=== PATIENT | male | born 1945 | race Caucasian/White ===

== ENCOUNTER 2017-05-12 00:10 | Observation (INO) | payer OTHER ==
[2017-05-12] VITALS (12 sets, daily range): BP systolic 108–185; BP diastolic 51–75; PULSE 55–64; RESP 14–18; TEMP 96.9–98.5; O2SAT 93–100
[~2017-05-12] VITALS: Ht 180.3 cm; Wt 88.9 kg
[~2017-05-12 00:10] MED LIST: AMLO10 PO; CARV12.5 PO; CITA20TA4 PO; COZA100T PO; HUMALOG SQ; HYDR-3580 PO; LANTUS2P SC; LOVA20TA PO; SPIR25 PO; ZOLP5TAB3 PO
--- NOTE | 2017-05-12 00:36 | PD ---
HPI Chief Complaint: General Weakness Time Seen by Provider: 00:21 Travel History International Travel<30 days: No Contact w/Intl Traveler<30days: No Traveled to known affect area: No History of Present Illness HPI This is a 72-year-old male who has a history of end-stage renal disease on dialysis as well as a past history of Guillain-Oakes, chronic foot drop and diabetic neuropathy who presents to the emergency department with weakness in his legs. He reports that from the knees down he feels like he can't move his legs, he feels numb and tingly and he can't stand independently. They had to help him get into a wheelchair from dialysis and he was unable to stand with his family's assistance at home. He denies any pain. He does have chronic back problems. He says his had Guillane [place] multiple times, most recently in 2008. PFSH Past Medical History Arthritis: Yes Asthma: No Autoimmune Disease: Yes Blood Disorders: No Anxiety: No Depression: Yes Heart Rhythm Problems: No Cancer: No Cardiovascular Problems: Yes (ND 2013) High Cholesterol: Yes Chest Pain: No Congestive Heart Failure: No COPD: No Cerebrovascular Accident: No Diabetes: Yes Diminished Hearing: No Endocrine: Yes Gastrointestinal Disorders: Yes (HX GASTRIC ULCER) GERD: Yes Headaches: Yes (OCCASSIONAL) Hepatitis: No Hiatal Hernia: Yes Hypertension: Yes Immune Disorder: No Implanted Vascular Access Dvce: Yes Kidney Stones: No Musculoskeletal: Yes (DDD LOWER BACK, ARTHRITIS HANDS, NECK AND BACK) Neurologic: Yes (AMY COHEN 1990) Psychiatric: No Reproductive: No Respiratory: Yes (SLEEP APNEA) Migraines: No Renal Failure: No Seizures: Yes (LAST 1984) Sleep Apnea: Yes Thyroid Disease: No Ulcer: Yes (HX OF) PNEUMOCCOCAL Vaccine (Year): 2009 Past Surgical History Abdominal Surgery: Yes (CHOLY,APPY) AICD: No Appendectomy: Yes Body Medical Devices: LENS IN BILAT EYES Cardiac Surgery: No Cholecystectomy: Yes Ear Surgery: No Endocrine Surgery: No Eye Surgery: Yes (BILAT CATARACTS; DETATCHED RETINA ON L/ALSO 2 SURGERIE TO L EFT EYE) Genitourinary Surgery: No Gynecologic Surgery: No Joint Replacement: No Oral Surgery: No Pacemaker: No Thoracic Surgery: No Other Surgery: Yes (BILAT LEG, VERICOSE VEIN SX) Social History Alcohol Use: No Tobacco Use: No Substance Use: No Allergies-Medications (Allergen,Severity, Reaction): Coded Allergies: Augmentin (Verified Allergy, Severe, RASH, 05/12/17) Codeine (Verified Allergy, Severe, SWELLING, 05/12/17) Penicillin (Verified Allergy, Severe, RASH, 05/12/17) Prednisone (Verified Allergy, Severe, RASH, 05/12/17) Iodine (Verified Allergy, Unknown, SWELLING, 05/12/17) SON IS NOT AWARE OF THIS AND HE IS SEED CORN PRODUCTION MANAGER Lactose (Verified Allergy, Unknown, 05/12/17) Cymbalta (Verified Adverse Reaction, Severe, STOMACH IRRITATION, 05/12/17) Reported Meds & Prescriptions Reported Meds & Active Scripts Active Reported Lovastatin 20 Mg Tab 20 Mg PO DAILY Lisinopril 10 Mg Tab 10 Mg PO BID Bumetanide 2 Mg Tab 2 Mg PO SAT, SUN, TUES, THUR Review of Systems Except as stated in HPI: all other systems reviewed are Neg Physical Exam Narrative GENERAL:Well appearing, no acute distress SKIN: Focused skin assessment warm and dry. HEAD: Atraumatic. Normocephalic. EYES: Pupils equal and round. No injection or drainage. ENT: Moist mucous membranes NECK: Trachea midline. CARDIOVASCULAR: Regular rate and rhythm. No murmur appreciated. 2+ bilateral DP pulses with normal capillary refill. RESPIRATORY: Clear to auscultation. Breath sounds equal bilaterally. GASTROINTESTINAL: Abdomen soft, non-tender, nondistended. MUSCULOSKELETAL: No obvious deformities. NEUROLOGICAL: Awake and alert. No obvious cranial nerve deficits. 4- out of 5 strength with knee flexion and extension, 2 out of 5 strength with dorsiflexion and plantar flexion, 4+ out of 5 strength with hip flexion and extension bilaterally. Absent patellar and Achilles reflexes bilaterally. PSYCHIATRIC: Appropriate mood and affect; insight and judgment normal. Data Data Last Documented VS Vital Signs Date Time Temp Pulse Resp B/P Pulse Ox O2 Delivery O2 Flow Rate FiO2 05/12/17 01:42 60 14 115/53 99 Room Air 05/12/17 00:35 98.5 Orders Complete Blood Count With Diff (05/12/17 00:21) Comprehensive Metabolic Panel (05/12/17 00:21) ^ Insert Iv (05/12/17 00:21) Prothrombin Time / Inr (Pt) (05/12/17 00:36) Act Partial Throm Time (Ptt) (05/12/17 00:36) Ct Brain W/O Iv Contrast(Rout) (05/12/17 ) Magnesium (Mg) (05/12/17 00:21) Labs Laboratory Tests Test 05/12/17 05/12/17 00:40 01:12 White Blood Count 8.9 TH/MM3 Red Blood Count 3.70 MIL/MM3 Hemoglobin 10.6 GM/DL Hematocrit 31.9 % Mean Corpuscular Volume 86.3 FL Mean Corpuscular Hemoglobin 28.5 PG Mean Corpuscular Hemoglobin 33.0 % Concent Red Cell Distribution Width 14.5 % Platelet Count 148 TH/MM3 Mean Platelet Volume 9.2 FL Neutrophils (%) (Auto) 72.6 % Lymphocytes (%) (Auto) 17.9 % Monocytes (%) (Auto) 7.4 % Eosinophils (%) (Auto) 1.8 % Basophils (%) (Auto) 0.3 % Neutrophils # (Auto) 6.4 TH/MM3 Lymphocytes # (Auto) 1.6 TH/MM3 Monocytes # (Auto) 0.7 TH/MM3 Eosinophils # (Auto) 0.2 TH/MM3 Basophils # (Auto) 0.0 TH/MM3 CBC Comment DIFF FINAL Differential Comment Sodium Level 137 MEQ/L Potassium Level 4.0 MEQ/L Chloride Level 97 MEQ/L Carbon Dioxide Level 34.0 MEQ/L Anion Gap 6 MEQ/L Blood Urea Nitrogen 41 MG/DL Creatinine 4.60 MG/DL Estimat Glomerular Filtration 13 ML/MIN Rate Random Glucose 165 MG/DL Calcium Level 8.5 MG/DL Magnesium Level 2.0 MG/DL Total Bilirubin 0.6 MG/DL Aspartate Amino Transf 18 U/L (AST/SGOT) Alanine Aminotransferase 24 U/L (ALT/SGPT) Alkaline Phosphatase 118 U/L Total Protein 7.6 GM/DL Albumin 3.7 GM/DL Prothrombin Time 10.5 SEC Prothromb Time International 1.0 RATIO Ratio Activated Partial 28.5 SEC Thromboplast Time MDM Medical Decision Making Medical Screen Exam Complete: Yes Emergency Medical Condition: Yes Interpretation(s) Afebrile, no tachycardia, mild hypertension No leukocytosis Anemia Potassium is normal Magnesium is normal CT head reassuring Differential Diagnosis Neuropathy, herniated disc, disability, Guillain-Oakes Narrative Course This is a 72-year-old male who presents to the emergency department with bilateral weakness below the knees that has worsened today. He has some degree of chronic weakness which has been documented on prior neurology exams and he has had areflexia documented as well in the past. On exam he is weak distal to the knee on both sides and he does have some decreased sensation to light touch. He has a normal vascular exam. The patient has a history of recurring Guillain-Oakes.I think patient requires admission for neurology consultation and physical therapy evaluation. He has no bowel or bladder symptoms or saddle anesthesia so I doubt cauda equina syndrome. Diagnosis Primary Impression: Weakness Admitting Information Admitting Physician Requests: Observation Mayuri Jimenez MD May 12, 2017 00:36
[2017-05-12] MEDS ORDERED: LISI10TA3 PO (00:54)
[2017-05-12] MEDS ORDERED: LOVA20TA PO (00:54)
[2017-05-12] MEDS ORDERED: BUME2TAB PO (00:54)
[2017-05-12 01:16] LABS: AUTOMATED NEUTROPHIL # 6.4 TH/MM3 (1.8-7.7); BASOPHIL % 0.3 % (0.0-2.0); EOSINOPHIL # 0.2 TH/MM3 (0-0.4); EOSINOPHIL % 1.8 % (0.0-4.0); HEMATOCRIT 31.9 % (39.0-51.0); HEMO FLAGS DIFF FINAL; LYMPH % 17.9 % (9.0-44.0); LYMPHOCYTE # 1.6 TH/MM3 (1.0-4.8); MEAN CELL VOLUME 86.3 FL (80.0-100.0); MEAN CORPUSCULAR HEMOGLOBIN 28.5 PG (27.0-34.0); MONO % 7.4 % (0.0-8.0); NEUT % 72.6 % (16.0-70.0); PLATELET COUNT 148 TH/MM3 (150-450); RED CELL DISTRIBUTION WIDTH 14.5 % (11.6-17.2); WHITE BLOOD COUNT 8.9 TH/MM3 (4.0-11.0)
[2017-05-12 01:29] LABS: CHLORIDE 97 MEQ/L (98-107); SODIUM (NA) 137 MEQ/L (136-145)
[2017-05-12 01:32] LABS: ANION GAP 6 MEQ/L (5-15); BLOOD UREA NITROGEN 41 MG/DL (7-18)
[2017-05-12 01:35] LABS: ALT (GPT) 24 U/L (12-78)
[2017-05-12 01:36] LABS: AST (GOT) 18 U/L (15-37); GLOMERULAR FILTRATION RATE 13 ML/MIN (>89)
[2017-05-12 01:37] LABS: TOTAL BILIRUBIN ADULT 0.6 MG/DL (0.2-1.0)
[2017-05-12 01:38] LABS: ALKALINE PHOSPHATASE 118 U/L (45-117)
[2017-05-12 01:41] LABS: APTT (PATIENT) 28.5 SEC (24.3-30.1); PROTHROMBIN TIME - PATIENT 10.5 SEC (9.8-11.6)
--- NOTE | 2017-05-12 01:57 | RADRPT ---
EXAM DATE/TIME: 05/12/2017 01:34 [facility] COMPARISON: CT BRAIN W/O CONTRAST, February 21, 2015, 13:40. INDICATIONS : Weakness. RADIATION DOSE: 58.71 CTDIvol (mGy) MEDICAL HISTORY : Diabetes mellitus type 2. Hypertension. Seizures.Guillain-[place] SURGICAL HISTORY : None. ENCOUNTER: Initial ACUITY: 2 days PAIN SCALE: 3/10 LOCATION: Bilateral cranial TECHNIQUE: Multiple contiguous axial images were obtained of the head. Using automated exposure control and adj ustment of the mA and/or kV according to patient size, radiation dose was kept as low as reasonably a chievable to obtain optimal diagnostic quality images. DICOM format image data is available electro nically for review and comparison. FINDINGS: CEREBRUM: The ventricles are normal for age. There stable bilateral cortical atrophy and chronic white matter changes. No evidence of midline shift, mass lesion, hemorrhage or acute infarction. No extra-axial f luid collections are seen. POSTERIOR FOSSA: The cerebellum and brainstem are intact. The 4th ventricle is midline. The cerebellopontine angle i s unremarkable. EXTRACRANIAL: The visualized portion of the orbits is intact. SKULL: The calvaria is intact. No evidence of skull fracture. No change compared to the prior study. CONCLUSION: Stable CT scan of the brain compared to 2014. Santy Mc MD on May 12, 2017 at 1:54 Board Certified Radiologist. This report was verified electronically.
[2017-05-12] MEDS ORDERED: NALOXONE HCL 0.4 MG/ML AMP IV PRN (02:30)
[2017-05-12] MEDS ORDERED: SODIUM CHLORIDE 0.9% FLUSH 10 ML FLUSH IV FLUSH PRN (02:30)
--- NOTE | 2017-05-12 08:24 | RADRPT ---
EXAM DATE/TIME: 05/12/2017 07:45 [facility] COMPARISON: No previous studies available for comparison. INDICATIONS : Left leg weakness. MEDICAL HISTORY : Hypertension. Myocardial infarction. Seziure. ESRD. Dialysis. Giullain-[place]. Diabetic. SURGICAL HISTORY : Appendectomy. Cholecystectomy. ENCOUNTER: Initial ACUITY: 3 days PAIN SCORE: 3/10 LOCATION: Left leg. TECHNIQUE: Venous ultrasound of the leg was performed from the inguinal ligament to the proximal calf. Real-stephen e, color Doppler and spectral tracing, compression and augmentation techniques were used. FINDINGS: There is normal compressibility of the deep venous system from the inguinal region to the proximal ca lf. No echogenic clot is seen in the lumen of the common femoral, femoral, popliteal, and posterior tibial veins. There is a normal response of the venous system to proximal and distal augmentation an d respiration. CONCLUSION: No deep venous thrombosis left leg. Lower extremity edema. Redd Honeycutt MD on May 12, 2017 at 8:20 Board Certified Radiologist. This report was verified electronically.
[2017-05-12] MEDS: BUMETANIDE 1 MG TAB PO SCH (09:09)
[2017-05-12] MEDS: SODIUM CHLORIDE 0.9% FLUSH 10 ML FLUSH IV FLUSH SCH ×2 (09:09→21:00)
[2017-05-12] MEDS: LISINOPRIL 10 MG TAB PO SCH ×2 (09:09→20:39)
--- NOTE | 2017-05-12 11:27 | PD.CONS ---
History of Present Illness Service Neurology Consult Requested By er Reason for Consult weakness Primary Care Physician Non-Staff History of Present Illness 72-year-old gentleman with a history of hypertension and chronic weakness as well as a diabetic neuropathy who came to the hospital complaining of acute onset of leg weakness. He was at dialysis and his legs gave out after completion so that he could not move by himself. he has chronic foot drop and uses afo's bilaterally. uses a wheelchair/walker at baseline. denies any arm or facial symptoms. back pain a little worse yesterday. Review of Systems as above and admit hp Past Family Social History Past Medical History Depression Hyperlipidemia Congestive heart failure Pulmonary artery hypertension Guillain-Oakes syndrome Arthritis Seizure disorder Sleep apnea Past Surgical History Cataracts Cholecystectomy Appendectomy Eye surgeries Reported Medications Reviewed in the medical record, nothing new Allergies: Coded Allergies: Augmentin (Verified Allergy, Severe, RASH, 05/12/17) Codeine (Verified Allergy, Severe, SWELLING, 05/12/17) Penicillin (Verified Allergy, Severe, RASH, 05/12/17) Prednisone (Verified Allergy, Severe, RASH, 05/12/17) Iodine (Verified Allergy, Unknown, SWELLING, 05/12/17) SON IS NOT AWARE OF THIS AND HE IS COMPLIANCE REPRESENTATIVE DEALER Lactose (Verified Allergy, Unknown, 05/12/17) Cymbalta (Verified Adverse Reaction, Severe, STOMACH IRRITATION, 05/12/17) Active Ordered Medications Reviewed and the medical record Family History Family history of hypertension Social History denies alcohol or tobacco dependency, lives with his family Review of Systems All other ROS: ROS reviewed as documented in chart Past Family Social History Allergies: Coded Allergies: Augmentin (Verified Allergy, Severe, RASH, 05/12/17) Codeine (Verified Allergy, Severe, SWELLING, 05/12/17) Penicillin (Verified Allergy, Severe, RASH, 05/12/17) Prednisone (Verified Allergy, Severe, RASH, 05/12/17) Iodine (Verified Allergy, Unknown, SWELLING, 05/12/17) SON IS NOT AWARE OF THIS AND HE IS COMPLIANCE REPRESENTATIVE DEALER Lactose (Verified Allergy, Unknown, 05/12/17) Cymbalta (Verified Adverse Reaction, Severe, STOMACH IRRITATION, 05/12/17) Active Ordered Medications Current Medications Medications (Trade) Dose Ordered Sig/Sam Route Start Time Stop Time Status Last Admin (NS Flush) 2 ml UNSCH PRN IV FLUSH 05/12/17 02:30 (NS Flush) 2 ml BID IV FLUSH 05/12/17 09:00 05/12/17 09:09 (Narcan Inj) 0.4 mg UNSCH PRN IV 05/12/17 02:30 (Prinivil) 10 mg BID PO 05/12/17 09:00 05/12/17 09:09 (Bumetanide) 2 mg DAILY PO 05/12/17 09:00 05/12/17 09:09 Exam I&O / VS 05/11/17 05/11/17 05/12/17 15:00 23:00 07:00 Intake Total 0 ml Balance 0 ml Intake Oral 0 ml # Voids 0 # Bowel Movements 0 Vital Signs Date Time Temp Pulse Resp B/P Pulse Ox O2 Delivery O2 Flow Rate FiO2 05/12/17 10:58 100 21 05/12/17 08:00 97.3 63 18 162/69 97 05/12/17 03:44 97.6 60 18 179/71 100 05/12/17 02:47 57 14 108/51 93 Room Air 05/12/17 01:42 60 14 115/53 99 Room Air 05/12/17 00:35 98.5 63 14 159/58 100 Room Air 05/12/17 00:35 63 14 100 Room Air 05/12/17 00:25 98.5 63 14 159/58 100 Neurologic: Alert, Oriented Psychiatric: Cooperative, Appropriate mood & affect, Normal judgement Exam Comments left vision loss. od- can see shadows, ou 1mm sluggish, os 5 mm dilated and non -reactive with left ptosis and peripheral facial weakness. dense stocking-glove neuropathy top all modalities with depressed reflexes. mute planters, no clonus. distal le weakness bilateral foot drop. able to bend both knees and move legs dallin to side in bed,. reduced rom in left shoulder. Review/Management Diagnosis/Plan: (1) DM polyneuropathy Plan: acute on chronic weakness gbs unlikely to occur that acutely; also has significant severe peripheral neuropathy that clouds accuracy of a gbs dx mri's reviewed. mri tspine with abnormal lower cord signal. syrinx vs infarct. it is possible that he could have thoracic cord ischemic causing his acute symptoms; possibly hypotension during HD could be contributory recs aspirin 325mg x 1 month then 81mg qd avoid hypotension check lipid panel; start statin if no contraindications, and ldl >70 check hba1c,b12 htn/dm/lipid control p.t. probable inpt rehab (2) Physical deconditioning (3) HTN (hypertension) (4) Acute on chronic renal failure Problem Qualifiers (1) DM polyneuropathy: Qualified Code: E13.42 - Diabetic polyneuropathy associated with other specified diabetes mellitus (2) HTN (hypertension): Qualified Code: I10 - Essential hypertension (3) Acute on chronic renal failure: Devon Segovia MD May 12, 2017 11:26
--- NOTE | 2017-05-12 12:58 | HHI.HP ---
[facility] Primary Care Physician Non-Staff Admission Diagnosis weakness Diagnoses: Chief Complaint: Worsening weakness Travel History International Travel<30 Days: No Contact w/Intl Traveler <30 Da: No Traveled to Known Affected Are: No History of Present Illness Patient is a 72-year-old gentleman with a history of hypertension and chronic weakness as well as a diabetic neuropathy who came to the hospital complaining of increased weakness in his legs for the last week. He was at dialysis and his legs gave out so that he could not move by himself. He was brought to the hospital for further evaluation observation. Patient denies any pain is weakness of severe worsening tries to move. Patient has had this progressive issue for some time and his family has requested a physical rehabilitation. Review of Systems Constitutional: DENIES: Diaphoretic episodes, Fatigue, Fever, Weight gain, Weight loss, Chills, Dizziness, Change in appetite, Night Sweats Endocrine: DENIES: Heat/cold intolerance, Polydipsia, Polyuria, Polyphagia Eyes: DENIES: Blurred vision, Diplopia, Eye inflammation, Eye pain, Vision loss , Photosensitivity, Double Vision Ears, nose, mouth, throat: DENIES: Tinnitus, Hearing loss, Vertigo, Nasal discharge, Oral lesions, Throat pain, Hoarseness, Ear Pain, Running Nose, Epistaxis, Sinus Pain, Toothache, Odynophagia Respiratory: DENIES: Apneas, Cough, Snoring, Wheezing, Hemoptysis, Sputum production, Shortness of breath Cardiovascular: DENIES: Chest pain, Palpitations, Syncope, Dyspnea on Exertion , PND, Lower Extremity Edema, Orthopnea, Claudication Gastrointestinal: DENIES: Abdominal pain, Black stools, Bloody stools, Constipation, Diarrhea, Nausea, Vomiting, Difficulty Swallowing, Anorexia Musculoskeletal: COMPLAINS OF: Joint pain, Muscle aches, Back pain Integumentary: DENIES: Abnormal pigmentation, Nail changes, Pruritus, Rash Hematologic/lymphatic: DENIES: Bruising, Lymphadenopathy Immunologic/allergic: DENIES: Eczema, Urticaria Neurologic: COMPLAINS OF: Abnormal gait Psychiatric: DENIES: Anxiety, Confusion, Mood changes, Depression, Hallucinations, Agitation, Suicidal Ideation, Homicidal Ideation, Delusions Past Family Social History Past Medical History Depression Hyperlipidemia Congestive heart failure Pulmonary artery hypertension Guillain-Oakes syndrome Arthritis Seizure disorder Sleep apnea Past Surgical History Cataracts Cholecystectomy Appendectomy Eye surgeries Reported Medications Reviewed in the medical record, nothing new Allergies: Coded Allergies: Augmentin (Verified Allergy, Severe, RASH, 05/12/17) Codeine (Verified Allergy, Severe, SWELLING, 05/12/17) Penicillin (Verified Allergy, Severe, RASH, 05/12/17) Prednisone (Verified Allergy, Severe, RASH, 05/12/17) Iodine (Verified Allergy, Unknown, SWELLING, 05/12/17) SON IS NOT AWARE OF THIS AND HE IS HEAD OF DIGITAL Lactose (Verified Allergy, Unknown, 05/12/17) Cymbalta (Verified Adverse Reaction, Severe, STOMACH IRRITATION, 05/12/17) Active Ordered Medications Reviewed and the medical record Family History Family history of hypertension Social History denies alcohol or tobacco dependency, lives with his family Physical Exam Vital Signs Vital Signs Date Time Temp Pulse Resp B/P Pulse Ox O2 Delivery O2 Flow Rate FiO2 05/12/17 12:00 96.9 55 18 142/61 99 05/12/17 10:58 100 21 05/12/17 08:00 97.3 63 18 162/69 97 05/12/17 03:44 97.6 60 18 179/71 100 05/12/17 02:47 57 14 108/51 93 Room Air 05/12/17 01:42 60 14 115/53 99 Room Air 05/12/17 00:35 98.5 63 14 159/58 100 Room Air 05/12/17 00:35 63 14 100 Room Air 05/12/17 00:25 98.5 63 14 159/58 100 Physical Exam GENERAL: This is a well-nourished, well-developed patient, in no apparent distress. SKIN: No rashes, ecchymoses or lesions. Cool and dry. HEAD: Atraumatic. Normocephalic. No temporal or scalp tenderness. EYES: Pupils equal round and reactive. Extraocular motions intact. No scleral icterus. No injection or drainage. ENT: Nose without bleeding, purulent drainage or septal hematoma. Throat without erythema, tonsillar hypertrophy or exudate. Uvula midline. Airway patent. NECK: Trachea midline. No JVD or lymphadenopathy. Supple, nontender, no meningeal signs. CARDIOVASCULAR: Regular rate and rhythm without murmurs, gallops, or rubs. RESPIRATORY: Clear to auscultation. Breath sounds equal bilaterally. No wheezes , rales, or rhonchi. GASTROINTESTINAL: Abdomen soft, non-tender, nondistended. No hepato-splenomegaly , or palpable masses. No guarding. MUSCULOSKELETAL: Extremities without clubbing, cyanosis, or edema. No joint tenderness, effusion, or edema noted. No calf tenderness. Negative Homans sign bilaterally. NEUROLOGICAL: Awake and alert. Cranial nerves II through XII intact. Motor and sensory grossly within normal limits. Five out of 5 muscle strength in all muscle groups. Normal speech. Laboratory Laboratory Tests Test 05/12/17 05/12/17 00:40 01:12 White Blood Count 8.9 Red Blood Count 3.70 Hemoglobin 10.6 Hematocrit 31.9 Mean Corpuscular Volume 86.3 Mean Corpuscular Hemoglobin 28.5 Mean Corpuscular Hemoglobin 33.0 Concent Red Cell Distribution Width 14.5 Platelet Count 148 Mean Platelet Volume 9.2 Neutrophils (%) (Auto) 72.6 Lymphocytes (%) (Auto) 17.9 Monocytes (%) (Auto) 7.4 Eosinophils (%) (Auto) 1.8 Basophils (%) (Auto) 0.3 Neutrophils # (Auto) 6.4 Lymphocytes # (Auto) 1.6 Monocytes # (Auto) 0.7 Eosinophils # (Auto) 0.2 Basophils # (Auto) 0.0 CBC Comment DIFF FINAL Differential Comment Sodium Level 137 Potassium Level 4.0 Chloride Level 97 Carbon Dioxide Level 34.0 Anion Gap 6 Blood Urea Nitrogen 41 Creatinine 4.60 Estimat Glomerular Filtration 13 Rate Random Glucose 165 Calcium Level 8.5 Magnesium Level 2.0 Total Bilirubin 0.6 Aspartate Amino Transf 18 (AST/SGOT) Alanine Aminotransferase 24 (ALT/SGPT) Alkaline Phosphatase 118 Total Protein 7.6 Albumin 3.7 Prothrombin Time 10.5 Prothromb Time International 1.0 Ratio Activated Partial 28.5 Thromboplast Time Result Diagram: 05/12/173905/12/1739 Assessment and Plan Problem List: (1) Weakness ICD Code: R53.1 Status: Acute Plan: Etiology unclear, rule out intrinsic musculoskeletal issues are pending Neurology consult appreciated Continue with physical therapy (2) DM (diabetes mellitus) ICD Code: E11.9 Status: Chronic Plan: Currently controlled with diet (3) CHF (congestive heart failure) ICD Code: I50.9 Status: Acute Plan: With a history of EF of about 40% and with elevated pulmonary artery pressure, continue CLIFFORD inhibitor and Bumex (4) Physical deconditioning ICD Code: R53.81 Status: Acute Plan: Chronic due to poor overall medical health Continue PT/OT (5) HTN (hypertension) ICD Code: I10 Status: Chronic Plan: Controlled on lisinopril and Bumex, continue follow-up (6) ESRD (end stage renal disease) ICD Code: N18.6 Status: Acute Sanjana Ba MD May 12, 2017 12:58
--- NOTE | 2017-05-12 14:17 | RADRPT ---
EXAM DATE/TIME: 05/12/2017 13:31 [facility] COMPARISON: No previous studies available for comparison. INDICATIONS : CVA. Hemiparesis. MEDICAL HISTORY : Hypertension. Diabetes mellitus type 2. Gastroesophageal reflux disease. SURGICAL HISTORY : Appendectomy. Retina repair. ENCOUNTER: Initial ACUITY: 2 day PAIN SCORE: 0/10 LOCATION: head TECHNIQUE: Multiplanar, multisequence MRI of the brain was performed without contrast. FINDINGS: CEREBRUM: The ventricles are normal for age. No evidence of midline shift, mass lesion, hemorrhage or acute in farction. No extraaxial fluid collections are seen. The pituitary gland and suprasellar cistern are normal in configuration. WHITE MATTER: Continued periventricular chronic deep white matter change with some prominence of the left frontal l obe similar to 2014. POSTERIOR FOSSA: The cerebellum and brainstem are intact. The 4th ventricle is midline. The cerebellopontine angle is unremarkable. The cerebellar tonsils are normal in position. DIFFUSION IMAGING: No focal areas of restricted diffusion are seen. No evidence of acute infarction. EXTRACRANIAL: The visualized portions of the orbits and paranasal sinuses are unremarkable. Previous left globe elizabeth lucia is unchanged CONCLUSION: Mild chronic ischemic demyelinization change. No evidence of acute edema, hemorrhage, mass or mass ef fect. Ishan Anthony MD on May 12, 2017 at 14:14 Board Certified Radiologist. This report was verified electronically.
--- NOTE | 2017-05-12 15:26 | RADRPT ---
EXAM DATE/TIME: 05/12/2017 13:31 [facility] COMPARISON: MRI LUMBAR SPINE W/O CONTRAST, May 02, 2014, 20:12. INDICATIONS : Inability to ambulate. MEDICAL HISTORY : Diabetes mellitus type 2. Hypertension. Gastroesophageal reflux disease. SURGICAL HISTORY : Appendectomy. Retina surgery. ENCOUNTER: Initial ACUITY: 2 day PAIN SCORE: 4/10 LOCATION: L-spine TECHNIQUE: Multiplanar multisequence MRI of the lumbar spine was performed without contrast. FINDINGS: The most caudal appearing lumbar vertebra is numbered as L5. VERTEBRAE: Homogeneous signal except for hemangioma of L4 and L5. Normal alignment. Discogenic edema anteriorly at the L3-4 level. CONUS: Normal level and configuration. T12-L1: The thecal sac has a normal diameter. No evidence of disc bulge or protrusion. The neural foramina are patent bilaterally. L1-L2: The thecal sac has a normal diameter. No evidence of disc bulge or protrusion. The neural foramina are patent bilaterally. L2-L3: The thecal sac has a normal diameter. No evidence of disc bulge or protrusion. The neural foramina are patent bilaterally. L3-L4: The thecal sac has a normal diameter. Mild diffuse annular bulge. No evidence of disc protrusion. The neural foramina are patent bilaterally. L4-L5: The thecal sac has a normal diameter. Mild diffuse annular bulge No evidence of disc protrusion. Th e neural foramina are patent bilaterally. L5-S1: The thecal sac has a normal diameter. No evidence of disc bulge or protrusion. The neural foramina are patent bilaterally. CONCLUSION: Mild bulges at L3-4 and L4-5. Minimal discogenic edema anteriorly at the L3-4 level. Stable exam since 2013. Ishan Anthony MD on May 12, 2017 at 15:22 Board Certified Radiologist. This report was verified electronically.
--- NOTE | 2017-05-12 15:29 | RADRPT ---
EXAM DATE/TIME: 05/12/2017 13:31 [facility] COMPARISON: MRI CERVICAL SPINE W/O CONTRAST, May 02, 2014, 20:12. INDICATIONS : Inability to ambulate. MEDICAL HISTORY : Hypertension. Diabetes mellitus type 2. Gastroesophageal reflux disease. SURGICAL HISTORY : Appendectomy. Retina surgery. ENCOUNTER: Initial ACUITY: 2 day PAIN SCORE: 4/10 LOCATION: neck TECHNIQUE: Multiplanar, multisequence MRI examination of the cervical spine was performed. FINDINGS: VERTEBRAE: Normal vertebral body height. Homogeneous marrow signal. The C6/7 disc space is fused. Mild interv ertebral disc space narrowing of C5/6. ALIGNMENT: No evidence of subluxation. CORD: Normal configuration and signal. POST FOSSA: The cerebellar tonsils are normal in position. C2-C3: The thecal sac has a normal configuration. There is no evidence of disc herniation or spinal canal s tenosis. The neural foramina are patent bilaterally. C3-C4: The thecal sac has a normal configuration. There is no evidence of disc herniation or spinal canal s tenosis. The neural foramina are patent bilaterally. C4-C5: The thecal sac has a normal configuration. There is no evidence of disc herniation or spinal canal s tenosis. The neural foramina are patent bilaterally. C5-C6: The thecal sac has a normal configuration. There is no evidence of disc herniation or spinal canal s tenosis. The neural foramina are patent bilaterally. C6-C7: The thecal sac has a normal configuration. There is no evidence of disc herniation or spinal canal s tenosis. The neural foramina are patent bilaterally. C7-T1: The thecal sac has a normal configuration. There is no evidence of disc herniation or spinal canal s tenosis. The neural foramina are patent bilaterally. CONCLUSION: The C6-7 level is fused. Moderate intervertebral disc present at the C5-6 level very similar to 2014. Ishan Anthony MD on May 12, 2017 at 15:26 Board Certified Radiologist. This report was verified electronically.
--- NOTE | 2017-05-12 15:40 | RADRPT ---
EXAM DATE/TIME: 05/12/2017 13:31 [facility] COMPARISON: No previous studies available for comparison. INDICATIONS : Inability to ambulate. MEDICAL HISTORY : Diabetes mellitus type 2. Hypertension. SURGICAL HISTORY : Appendectomy. Retina surgery. ENCOUNTER: Initial ACUITY: 2 day PAIN SCORE: 2/10 LOCATION: T-spine TECHNIQUE: Multiplanar multisequence MRI of the thoracic spine was performed. FINDINGS: VERTEBRA: Normal vertebral body height. There are mixed density lesions in T4 and T7 suspicious for hemangioma. . ALIGNMENT: Normal. CORD: The thoracic cord is quite narrowed from the T6 vertebral body down to T11. There some prominence of the central canal signal could be a small syrinx from T7-T9. I don't see any definite cord edema. T1-T2: Normal. T2-T3: The thecal sac has a normal diameter. No evidence of disc bulge or protrusion. T3-T4: The thecal sac has a normal diameter. No evidence of disc bulge or protrusion. T4-T5: The thecal sac has a normal diameter. No evidence of disc bulge or protrusion. T5-T6: The thecal sac has a normal diameter. No evidence of disc bulge or protrusion. T6-T7: The thecal sac has a normal diameter. No evidence of disc bulge or protrusion. T7-T8: The thecal sac has a normal diameter. No evidence of disc bulge or protrusion. T8-T9: The thecal sac has a normal diameter. No evidence of disc bulge or protrusion. T9-T10: The thecal sac has a normal diameter. No evidence of disc bulge or protrusion. T10-T11: The thecal sac has a normal diameter. No evidence of disc bulge or protrusion. T11-T12: The thecal sac has a normal diameter. No evidence of disc bulge or protrusion. T12-L1: The thecal sac has a normal diameter. No evidence of disc bulge or protrusion. CONCLUSION: The thoracic cord is quite narrowed from the T6 vertebral body down to T11. There some prominence of the central canal signal could be a small syrinx from T7-T9. I don't see any definite cord edema. Ishan Anthony MD on May 12, 2017 at 15:36 Board Certified Radiologist. This report was verified electronically.
[2017-05-12] MEDS: ASPIRIN 325 MG TAB PO SCH (18:26)
[2017-05-13] VITALS (7 sets, daily range): BP systolic 106–195; BP diastolic 53–75; PULSE 57–90; RESP 14–18; TEMP 96.7–97.9; O2SAT 97–100
[2017-05-13 02:44] LABS: HDL CHOLESTEROL 25.7 MG/DL (40.0-60.0); LDL CHOLESTEROL 36 MG/DL (0-99)
[2017-05-13 06:31] LABS: AUTOMATED NEUTROPHIL # 4.1 TH/MM3 (1.8-7.7); BASOPHIL % 0.6 % (0.0-2.0); EOSINOPHIL # 0.2 TH/MM3 (0-0.4); EOSINOPHIL % 3.2 % (0.0-4.0); HEMATOCRIT 28.2 % (39.0-51.0); HEMO FLAGS DIFF FINAL; LYMPHOCYTE # 1.6 TH/MM3 (1.0-4.8); MEAN CELL VOLUME 85.4 FL (80.0-100.0); MEAN CORPUSCULAR HEMOGLOBIN 29.1 PG (27.0-34.0); MEAN CORPUSCULAR HGB CONC 34.1 % (32.0-36.0); MONO % 7.9 % (0.0-8.0); NEUT % 63.3 % (16.0-70.0); PLATELET COUNT 125 TH/MM3 (150-450); RED CELL DISTRIBUTION WIDTH 14.2 % (11.6-17.2); WHITE BLOOD COUNT 6.4 TH/MM3 (4.0-11.0)
[2017-05-13 06:44] LABS: POTASSIUM 4.3 MEQ/L (3.5-5.1)
[2017-05-13 06:53] LABS: BICARBONATE 30.5 MEQ/L (21.0-32.0)
[2017-05-13 07:08] LABS: MAGNESIUM 2.1 MG/DL (1.5-2.5)
[2017-05-13] MEDS: BUMETANIDE 1 MG TAB PO SCH (09:00)
[2017-05-13] MEDS: ASPIRIN 325 MG TAB PO SCH (09:29)
[2017-05-13] MEDS: LISINOPRIL 10 MG TAB PO SCH ×2 (09:29→21:22)
[2017-05-13] MEDS: SODIUM CHLORIDE 0.9% FLUSH 10 ML FLUSH IV FLUSH SCH ×2 (09:30→21:22)
--- NOTE | 2017-05-13 13:38 | HHI.PR ---
Subjective Remarks Is seen today in follow-up for weakness MRI findings discussed with patient and son. Family would like to eat with neurosurgery team to explore any possible surgical interventions. Otherwise no new complaints today. Patient's magnetizer was contacted does not come here. Nephrology will be needed for end-stage renal disease and renal replacement therapy with hemodialysis. Care plan discussed with patient, patient's nurse and family Objective Vitals Vital Signs Date Time Temp Pulse Resp B/P Pulse Ox O2 Delivery O2 Flow Rate FiO2 05/13/17 13:00 97.7 63 15 137/62 97 05/13/17 10:15 64 05/13/17 09:01 97.7 90 15 161/67 98 05/13/17 04:00 97.6 57 18 151/67 99 05/13/17 00:00 96.7 61 18 195/75 98 05/12/17 20:40 98 21 05/12/17 20:00 97.5 61 18 185/75 98 05/12/17 20:00 60 05/12/17 16:00 97.5 57 18 139/56 99 I/O 05/12/17 05/12/17 05/12/17 05/13/17 05/13/17 05/13/17 06:59 14:59 22:59 06:59 14:59 22:59 Intake Total 0 ml 360 ml 242 ml 240 ml Output Total 300 ml 300 ml 1000 ml Balance 0 ml 60 ml -58 ml -760 ml Intake Oral 0 ml 360 ml 240 ml 240 ml IV Total 2 ml Output Urine Total 300 ml 300 ml 1000 ml Stool Total 0 ml # Voids 0 # Bowel Movements 0 0 0 Result Diagram: 05/13/1720 05/13/17 0620 Imaging Last Impressions Thoracic Spine MRI 05/12/17 0000 Signed Impressions: Service Date/Time: Friday, May 12, 2017 13:31 - CONCLUSION: The thoracic cord is quite narrowed from the T6 vertebral body down to T11. There some prominence of the central canal signal could be a small syrinx from T7-T9. I don't see any definite cord edema. Ishan Anthony MD Lumbar Spine MRI 05/12/17 0000 Signed Impressions: Service Date/Time: Friday, May 12, 2017 13:31 - CONCLUSION: Mild bulges at L3-4 and L4-5. Minimal discogenic edema anteriorly at the L3-4 level. Stable exam since 2013. Ishan Anthony MD Lower Extremity Ultrasound 05/12/17 0000 Signed Impressions: Service Date/Time: Friday, May 12, 2017 07:45 - CONCLUSION: No deep venous thrombosis left leg. Lower extremity edema. Redd Honeycutt MD Head CT 05/12/17 0000 Signed Impressions: Service Date/Time: Friday, May 12, 2017 01:34 - CONCLUSION: Stable CT scan of the brain compared to 2015. Santy Mc MD Cervical Spine MRI 05/12/17 0000 Signed Impressions: Service Date/Time: Friday, May 12, 2017 13:31 - CONCLUSION: The C6-7 level is fused. Moderate intervertebral disc present at the C5-6 level very similar to 2014. Ishan Anthony MD Brain MRI 05/12/17 0000 Signed Impressions: Service Date/Time: Friday, May 12, 2017 13:31 - CONCLUSION: Mild chronic ischemic demyelinization change. No evidence of acute edema, hemorrhage, mass or mass effect. Ishan Anthony MD Objective Remarks GENERAL: This is a well-nourished, well-developed patient, complaining of leg weakness CARDIOVASCULAR: Regular rate and rhythm without murmurs, gallops, or rubs. RESPIRATORY: Clear to auscultation. Breath sounds equal bilaterally. No wheezes , rales, or rhonchi. GASTROINTESTINAL: Abdomen soft, non-tender, nondistended. Normal active bowel sounds MUSCULOSKELETAL: Extremities without clubbing, cyanosis, or edema. NEURO: Alert & Oriented x4 to person, place, time, situation. Moves upper extremities 3/5 and lower 1-2/5 Procedures none A/P Problem List: (1) Weakness ICD Code: R53.1 Status: Chronic Plan: with subacute changes from intrinsic musculoskeletal issues Neurology consult appreciated Continue with physical therapy Family request DENAE montez (2) DM (diabetes mellitus) ICD Code: E11.9 Status: Chronic Plan: Currently controlled with diet no further monitoring needed, Random BG wnl (3) CHF (congestive heart failure) ICD Code: I50.9 Status: Chronic Plan: With a history of EF of about 40% and with elevated pulmonary artery pressure, continue CLIFFORD inhibitor and Bumex (4) Physical deconditioning ICD Code: R53.81 Status: Acute Plan: Chronic due to poor overall medical health a and abnl MRI with findings below Continue PT/OT as tolerated, Last Impressions Thoracic Spine MRI 05/12/17 0000 Signed Impressions: Service Date/Time: Friday, May 12, 2017 13:31 - CONCLUSION: The thoracic cord is quite narrowed from the T6 vertebral body down to T11. There some prominence of the central canal signal could be a small syrinx from T7-T9. I don't see any definite cord edema. Ishan Anthony MD Lumbar Spine MRI 05/12/17 0000 Signed Impressions: Service Date/Time: Friday, May 12, 2017 13:31 - CONCLUSION: Mild bulges at L3-4 and L4-5. Minimal discogenic edema anteriorly at the L3-4 level. Stable exam since 2013. Ishan Anthony MD Cervical Spine MRI 05/12/17 0000 Signed Impressions: Service Date/Time: Friday, May 12, 2017 13:31 - CONCLUSION: The C6-7 level is fused. Moderate intervertebral disc present at the C5-6 level very similar to 2014. Ishan Anthony MD Brain MRI 05/12/17 0000 Signed Impressions: Service Date/Time: Friday, May 12, 2017 13:31 - CONCLUSION: Mild chronic ischemic demyelinization change. No evidence of acute edema, hemorrhage, mass or mass effect. Ishan Anthony MD (5) HTN (hypertension) ICD Code: I10 Status: Chronic Plan: Controlled on lisinopril and Bumex, continue follow-up and HD (6) ESRD (end stage renal disease) ICD Code: N18.6 Status: Acute Plan: HD MWF Nephrology consulted Discharge Planning to snf v Inpatient rehab after NSGY eval HD today Problem Qualifiers (1) HTN (hypertension): Qualified Code: I10 - Essential hypertension Sanjana Ba MD May 13, 2017 13:37
[2017-05-13] MEDS ORDERED: SODIUM CHLOR 0.9% 1000 ML INJ 1,000 ML IV PRN ×3 (16:39)
--- NOTE | 2017-05-13 16:39 | PD.CONS ---
HPI Service Nephrology Consult Requested By Reason for Consult ESRD on HD Primary Care Physician Non-Staff History of Present Illness This is a pleasant 72 y/o male patient who was at dialysis on Thursday, and after treatment had significant lower extremity weakness and was admitted for work up. He has PMH of HTN, DM II, chronic foot drop, diabetic neuropathy, current bleeding behind right eye and detached retina on left. 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 He dialyzes in [place], follows with Dr. Zamora. He has been on HD since July 2016, has immature AVF on left and uses Permcath in right IJ for treatment. He has been evaluated by neurology this admission, we were consulted for dialysis management. He is a full code. ( Stacey Grace) Review of Systems Cardiovascular: DENIES: Chest pain Gastrointestinal: DENIES: Abdominal pain Neurologic: COMPLAINS OF: Abnormal gait, Localized weakness, Poor Balance, DENIES: Paresthesias Psychiatric: DENIES: Anxiety (Stacey Grace) Past Family Social History Allergies: Coded Allergies: Augmentin (Verified Allergy, Severe, RASH, 05/12/17) Codeine (Verified Allergy, Severe, SWELLING, 05/12/17) Penicillin (Verified Allergy, Severe, RASH, 05/12/17) Prednisone (Verified Allergy, Severe, RASH, 05/12/17) Iodine (Verified Allergy, Unknown, SWELLING, 05/12/17) SON IS NOT AWARE OF THIS AND HE IS DATA MIGRATION CONSULTANT Lactose (Verified Allergy, Unknown, 05/12/17) Cymbalta (Verified Adverse Reaction, Severe, STOMACH IRRITATION, 05/12/17) Past Medical History ESRD on HD MWF HTN Hyperlipidemia Congestive heart failure Pulmonary artery hypertension Guillain-Oakes syndrome x 3 Arthritis Seizure disorder Sleep apnea Depression Past Surgical History Cataracts Cholecystectomy Appendectomy Eye surgeries receives injections in right eye regularly Reported Medications Lovastatin 20 Mg Tab 20 Mg PO DAILY Lisinopril 10 Mg Tab 10 Mg PO BID Bumetanide 2 Mg Tab 2 Mg PO SAT, SUN, TUES, THUR Active Ordered Medications Current Medications Medications (Trade) Dose Ordered Sig/Sam Route Start Time Stop Time Status Last Admin (NS Flush) 2 ml UNSCH PRN IV FLUSH 05/12/17 02:30 (NS Flush) 2 ml BID IV FLUSH 05/12/17 09:00 05/13/17 09:30 (Narcan Inj) 0.4 mg UNSCH PRN IV 05/12/17 02:30 (Prinivil) 10 mg BID PO 05/12/17 09:00 05/13/17 09:29 (Bumetanide) 2 mg DAILY PO 05/12/17 09:00 05/13/17 09:00 (Aspirin) 325 mg DAILY PO 05/12/17 18:30 05/13/17 09:29 Family History non contributory Social History , lives with son and his family no smoking or ETOH history retired from [employer] uses walker to ambulate full code (Stacey Grace) Physical Exam Vital Signs Vital Signs Date Time Temp Pulse Resp B/P Pulse Ox O2 Delivery O2 Flow Rate FiO2 05/13/17 13:00 97.7 63 15 137/62 97 05/13/17 10:15 64 05/13/17 09:01 97.7 90 15 161/67 98 05/13/17 04:00 97.6 57 18 151/67 99 05/13/17 00:00 96.7 61 18 195/75 98 05/12/17 20:40 98 21 05/12/17 20:00 97.5 61 18 185/75 98 05/12/17 20:00 60 Physical Exam Obese male awake, alert/oriented x 3 S1/S2, RRR no murmurs or ectopy lungs clear, no wheezing abdomen soft, non tender extremities; no edema, braces on bilateral lower extremities AVF LUE + thrill/bruit Permcath right chest Laboratory Laboratory Tests Test 05/12/17 05/13/17 19:15 06:20 Erythrocyte Sedimentation Rate 1 Triglycerides Level 112 Cholesterol Level 84 LDL Cholesterol 36 HDL Cholesterol 25.7 Cholesterol/HDL Ratio 3.26 Vitamin B12 Level 335 White Blood Count 6.4 Red Blood Count 3.30 Hemoglobin 9.6 Hematocrit 28.2 Mean Corpuscular Volume 85.4 Mean Corpuscular Hemoglobin 29.1 Mean Corpuscular Hemoglobin 34.1 Concent Red Cell Distribution Width 14.2 Platelet Count 125 Mean Platelet Volume 8.6 Neutrophils (%) (Auto) 63.3 Lymphocytes (%) (Auto) 25.0 Monocytes (%) (Auto) 7.9 Eosinophils (%) (Auto) 3.2 Basophils (%) (Auto) 0.6 Neutrophils # (Auto) 4.1 Lymphocytes # (Auto) 1.6 Monocytes # (Auto) 0.5 Eosinophils # (Auto) 0.2 Basophils # (Auto) 0.0 CBC Comment DIFF FINAL Differential Comment Sodium Level 138 Potassium Level 4.3 Chloride Level 100 Carbon Dioxide Level 30.5 Anion Gap 8 Blood Urea Nitrogen 62 Creatinine 6.20 Estimat Glomerular Filtration 9 Rate Random Glucose 98 Calcium Level 7.9 Magnesium Level 2.1 (Stacey Grace) Result Diagram: 05/13/1761905/13/17619 Imaging Last 72 hours Impressions Thoracic Spine MRI 05/12/17 0000 Signed Impressions: Service Date/Time: Friday, May 12, 2017 13:31 - CONCLUSION: The thoracic cord is quite narrowed from the T6 vertebral body down to T11. There some prominence of the central canal signal could be a small syrinx from T7-T9. I don't see any definite cord edema. Ishan Anthony MD Lumbar Spine MRI 05/12/17 0000 Signed Impressions: Service Date/Time: Friday, May 12, 2017 13:31 - CONCLUSION: Mild bulges at L3-4 and L4-5. Minimal discogenic edema anteriorly at the L3-4 level. Stable exam since 2013. Ishan Anthony MD Lower Extremity Ultrasound 05/12/17 0000 Signed Impressions: Service Date/Time: Friday, May 12, 2017 07:45 - CONCLUSION: No deep venous thrombosis left leg. Lower extremity edema. Redd Honeycutt MD Head CT 05/12/17 0000 Signed Impressions: Service Date/Time: Friday, May 12, 2017 01:34 - CONCLUSION: Stable CT scan of the brain compared to 2015. Santy Mc MD Cervical Spine MRI 05/12/17 0000 Signed Impressions: Service Date/Time: Friday, May 12, 2017 13:31 - CONCLUSION: The C6-7 level is fused. Moderate intervertebral disc present at the C5-6 level very similar to 2014. Ishan Anthony MD Brain MRI 05/12/17 0000 Signed Impressions: Service Date/Time: [place]athy, May 12, 2017 13:31 - CONCLUSION: Mild chronic ischemic demyelinization change. No evidence of acute edema, hemorrhage, mass or mass effect. Ishan Anthony MD (Stacey Grace) Assessment and Plan Problem List: (1) ESRD (end stage renal disease) Plan: resume MWF dialysis, orders have been entered use Permcath for HD avoid LUE IV sticks, protect new fistula obtain intermittent renal panel, check phosphorus level in AM, he reports he is not on phosphate binders avoid IVF, gadolinium is contraindicated he makes urine, is on Bumex on non HD days (2) HTN (hypertension) Plan: monitor blood pressure ordered lisinopril (3) DM (diabetes mellitus) Plan: insulin as ordered (4) Anemia Plan: epogen with HD (5) Weakness Plan: neurology is following unlikely to be GB per neuro, possible thoracic cord compression causing weakness appreciate further recommendations he was started on ASA (Stacey Grace) Assessment and Plan patient was seen and examined. Seen during dialysis. On 3K, UF goal is 3 liters. Tolerating it well. Neurology note was reviewed. (Sanju Cameron MD) Problem Qualifiers (1) HTN (hypertension): Qualified Code: I10 - Essential hypertension Stacey Grace May 13, 2017 16:39 Sanju Cameron MD May 13, 2017 19:58
[2017-05-13] MEDS ORDERED: ALBUMIN HUMAN 25% 25 GM/100 ML BAGP IV PRN (16:45)
[2017-05-13] MEDS ORDERED: cloNIDine HCL 0.1 MG TAB PO PRN (16:45)
[2017-05-13] MEDS ORDERED: NITROGLYCERIN 0.4 MG SL 25 TABS/BTL SL PRN (16:45)
[2017-05-13] MEDS ORDERED: HEPARIN SODIUM - IV 10,000 UNITS/10 ML VIAL IVF PRN (16:45)
[2017-05-13] MEDS ORDERED: GENTAMICIN SULFATE (DIALYSIS USE ONLY) 20 MG/2 ML VIAL IV PRN (16:45)
[2017-05-13] MEDS ORDERED: HEPARIN SODIUM - IV 10,000 UNITS/10 ML VIAL PRN (16:45)
[2017-05-13] MEDS ORDERED: diphenhydrAMINE HCL 25 MG CAP PO PRN (16:45)
[2017-05-13] MEDS ORDERED: MANNITOL 12.5 GM/50 ML VIAL IV PRN (16:45)
[2017-05-13] MEDS ORDERED: ONDANSETRON HCL 4 MG/2 ML VIAL IV PRN (16:45)
[2017-05-13] MEDS ORDERED: GELATIN 12 MM/7 MM FOAM TOP PRN (16:45)
[2017-05-13] MEDS ORDERED: ACETAMINOPHEN 325 MG TAB PO PRN (16:45)
[2017-05-13] MEDS ORDERED: EPOETIN ALFA 10,000 UNITS/ML VIAL IV PRN (16:45)
[2017-05-13] MEDS ORDERED: SODIUM CHLORIDE 0.9% FLUSH 10 ML FLUSH IV FLUSH PRN (16:45)
[2017-05-13 16:56] LABS: HEMOGLOBIN LA1C 2.1 %
[2017-05-13 17:59] LABS: HEMOGLOBIN A1a 1.3 %
[2017-05-13 18:00] LABS: HEMOGLOBIN A1b 1.7 %; HEMOGLOBIN Ao 84.9 %; HEMOGLOBIN P3 5.5 %
[2017-05-14] VITALS (10 sets, daily range): BP systolic 136–168; BP diastolic 49–65; PULSE 61–74; RESP 16–18; TEMP 98–98.9; O2SAT 95–100
[2017-05-14 06:40] LABS: POTASSIUM 3.6 MEQ/L (3.5-5.1)
[2017-05-14 06:59] LABS: BICARBONATE 31.8 MEQ/L (21.0-32.0)
[2017-05-14] MEDS: BUMETANIDE 1 MG TAB PO SCH (08:48)
[2017-05-14] MEDS: ASPIRIN 325 MG TAB PO SCH (08:48)
[2017-05-14] MEDS: LISINOPRIL 10 MG TAB PO SCH ×2 (08:49→21:19)
[2017-05-14] MEDS: SODIUM CHLORIDE 0.9% FLUSH 10 ML FLUSH IV FLUSH SCH ×2 (08:49→21:23)
[2017-05-14] MEDS ORDERED: MAGNESIUM HYDROXIDE SUSP 30 ML CUP PO ONE (11:15)
[2017-05-14] MEDS ORDERED: DOCUSATE SODIUM 50 MG/SENNA 8.6 MG TAB PO ONE (11:15)
--- NOTE | 2017-05-14 13:48 | HHI.PR ---
Subjective Remarks Patient says he is feeling all right. Still with bilateral lower extremity weakness. No bowel movement in several days. Feels he is constipated. Patient reports right eye blurry vision with redness, unchanged from one month ago after injection by Dr. Montaño. Patient denies any chest pain or shortness of breath. Denies any palpitations. Discussed with nurse, who reports 10 beats of asymptomatic ventricular tachycardia overnight. Objective Vital Signs Date Time Temp Pulse Resp B/P Pulse Ox O2 Delivery O2 Flow Rate FiO2 05/14/17 11:55 98.4 61 16 146/61 96 05/14/17 08:00 98.6 64 16 162/65 100 05/14/17 05:15 95 21 05/14/17 00:00 98.0 67 16 168/63 95 05/13/17 21:15 97.9 62 18 151/59 99 05/13/17 17:00 97.9 60 14 106/53 100 I/O 05/13/17 05/13/17 05/13/17 05/14/17 05/14/17 05/14/17 06:59 14:59 22:59 06:59 14:59 22:59 Intake Total 240 ml 1220 ml 80 ml Output Total 1000 ml 550 ml Balance -760 ml 670 ml 80 ml Intake Oral 240 ml 1220 ml 80 ml Output Urine Total 1000 ml 550 ml # Voids 2 4 # Bowel Movements 0 0 0 Result Diagram: 05/13/17 0620 05/14/17 0530 Objective Remarks GENERAL: Patient lying in bed. Appears comfortable. SKIN: Warm and dry. HEAD: Normocephalic. EYES: No scleral icterus. No injection or drainage. NECK: Supple, trachea midline. No JVD. CARDIOVASCULAR: Regular rate and rhythm without murmurs, gallops, or rubs. RESPIRATORY: Breath sounds equal bilaterally. No accessory muscle use. GASTROINTESTINAL: Abdomen soft, non-tender, nondistended. MUSCULOSKELETAL: No cyanosis, or edema. Bilateral lower extremity weakness. BACK: Nontender without obvious deformity. No CVA tenderness. A/P Assessment and Plan ====05/14/17===== Constipation. Acute. Laxatives ordered Thoracic spinal stenosis. Await neurosurgery evaluation. Preoperative clearance. 10 beats of asymptomatic V. tach. Consult cardiology. //Weakness /Thoracic spinal stenosis. -with subacute changes from intrinsic musculoskeletal issues -Neurology following. Appreciate assistance. -Imaging as above. Continue with physical therapy -Neurosurgery evaluation pending. //DM (diabetes mellitus) - Currently controlled with diet no further monitoring needed, Random BG wnl //CHF (congestive heart failure) //Asymptomatic ventricular tachycardia. 10 beats noted overnight on 05/14. - With a history of EF of about 40% and with elevated pulmonary artery pressure , continue CLIFFORD inhibitor and Bumex -Cardiology consult for V. tach, as well as preoperative evaluation. //Physical deconditioning - Chronic due to poor overall medical health a and abnl MRI with findings below Continue PT/OT as tolerated, // HTN (hypertension). Chronic - Controlled on lisinopril and Bumex, continue follow-up and HD //Constipation. Laxative order. 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 No change control manager the past month. Follow-up with ophthalmology as outpatient. //ESRD (end stage renal disease) -Cont HD MWF Nephrology ff. appreciate assist Discharge Planning likely to snf vs Inpatient rehab after NSGY eval -Appreciate physical therapy assistance. Elias Forde MD May 14, 2017 13:48
--- NOTE | 2017-05-14 17:01 | HHI.NPPN ---
Subjective General Problems: Anemia Renal Failure: Chronic, End Stage Renal Disease Interval History Dialysis went well yesterday. No acute concerns. (Stcaey Grace) Review of Systems Neuro Neuro Remarks weakness (Stacey Grace) Objective Data Data 05/13/17 05/14/17 18:59 06:59 Intake Total 1000 ml 300 ml Output Total 550 ml Balance 1000 ml -250 ml Intake Oral 1000 ml 300 ml Output Urine Total 550 ml # Voids 2 4 # Bowel Movements 0 Vital Signs Date Time Temp Pulse Resp B/P Pulse Ox O2 Delivery O2 Flow Rate FiO2 05/14/17 16:00 98.9 64 16 136/49 100 05/14/17 15:18 72 05/14/17 11:55 98.4 61 16 146/61 96 05/14/17 11:15 74 05/14/17 08:00 98.6 64 16 162/65 100 05/14/17 05:15 95 21 05/14/17 00:00 98.0 67 16 168/63 95 05/13/17 21:15 97.9 62 18 151/59 99 05/13/17 17:00 97.9 60 14 106/53 100 (Stacey Grace) -: 05/13/17 0620 05/14/17 0530 Imaging Last 72 hours Impressions Thoracic Spine MRI 05/12/17 0000 Signed Impressions: Service Date/Time: Friday, May 12, 2017 13:31 - CONCLUSION: The thoracic cord is quite narrowed from the T6 vertebral body down to T11. There some prominence of the central canal signal could be a small syrinx from T7-T9. I don't see any definite cord edema. Ishan Anthony MD Lumbar Spine MRI 05/12/17 0000 Signed Impressions: Service Date/Time: Friday, May 12, 2017 13:31 - CONCLUSION: Mild bulges at L3-4 and L4-5. Minimal discogenic edema anteriorly at the L3-4 level. Stable exam since 2013. Ishan Anthony MD Lower Extremity Ultrasound 05/12/17 0000 Signed Impressions: Service Date/Time: Friday, May 12, 2017 07:45 - CONCLUSION: No deep venous thrombosis left leg. Lower extremity edema. Redd Honeycutt MD Head CT 05/12/17 0000 Signed Impressions: Service Date/Time: Friday, May 12, 2017 01:34 - CONCLUSION: Stable CT scan of the brain compared to 2015. Santy cM MD Cervical Spine MRI 05/12/17 0000 Signed Impressions: Service Date/Time: Friday, May 12, 2017 13:31 - CONCLUSION: The C6-7 level is fused. Moderate intervertebral disc present at the C5-6 level very similar to 2014. Ishan Anthony MD Brain MRI 05/12/17 0000 Signed Impressions: Service Date/Time: Friday, May 12, 2017 13:31 - CONCLUSION: Mild chronic ischemic demyelinization change. No evidence of acute edema, hemorrhage, mass or mass effect. Ishan Anthony MD (Stacey Grace [employer]) Physical Exam General Appearance: Well Developed, No Acute Distress, Comfortable (Stacey Grace [employer]) Ears & Nose Ears & Nose Exam: Tympanic Membranes Normal (Stacey Grace [employer]) Throat Throat Exam: Oral Mucosa [place] & Moist (Stacey Grace [employer]) Pulmonary Resp Exam: Clear Bilaterally, Breath Sounds Equal (Stacey Grace [employer]) Cardiology CV Exam: Regular, Normal Sinus Rhythm CV Remarks permcath right (Stacey Grace [employer]) Gastrointestinal/Abdomen GI Exam: Soft, Non-Tender (Stacey Grace [employer]) Musculoskeletal MS Exam: Normal Tone, Good Strength MS Remarks braces in place bilaterally (Stacey Grace [employer]) Integumentary Skin Exam: Warm, Dry (Stacey Grace [employer]) Extremeties Extremities Exam: No Edema, Pedal Pulses Palpable (Stacey Grace [employer]) Neurologic Neuro Exam: Alert, Awake, Oriented, Speech Clear, Moving All Extremities ( Stacey GraceP) Assessment/Plan Discussed Condition With: Patient Assessment Summary: Anemia of CKD, End Stage Renal Disease Problem List: (1) ESRD (end stage renal disease) Plan: 3L UF yesterday, continue MWF dialysis, due tomorrow use Permcath for HD avoid LUE IV sticks, protect new fistula phosphorus level is normal, he is not on binder therapy avoid IVF, gadolinium is contraindicated he makes urine, is on Bumex on non HD days (2) HTN (hypertension) Plan: monitor blood pressure ordered lisinopril (3) DM (diabetes mellitus) Plan: insulin as ordered (4) Anemia Plan: continue epogen with HD (5) Weakness Plan: neurology has been following appreciate further recommendations he was started on ASA neurosurgery has been consulted unlikely to be GB per neuro, possible thoracic cord compression causing weakness (Stacey Grace) Plan patient was seen and examined. Agree with above assessment and plan. (Sanju Cameron MD) Problem Qualifiers (1) HTN (hypertension): Qualified Code: I10 - Essential hypertension Stacey Grace May 14, 2017 17:00 Sanju Cameron MD May 14, 2017 19:25
[2017-05-15] VITALS (9 sets, daily range): BP systolic 141–177; BP diastolic 59–67; PULSE 59–69; RESP 16–18; TEMP 97.5–98.5; O2SAT 97–100
--- NOTE | 2017-05-15 06:36 | PD.CONS ---
HPI Consult Requested By Reason for Consult Nonsustained ventricular tachycardia Primary Care Physician Non-Staff History of Present Illness I have reviewed outside and hospital records. The primary service has consulted me for a 3 beat run of nonsustained ventricular tachycardia yet the patient has had no baseline EKG done this hospital stay. I have ordered one which is pending. The patient has a baseline history of a right bundle branch block and first-degree AV block. Last echocardiogram 03/10 showed normal left ventricular function with aortic sclerosis. He does have a heart murmur. SPECT nuclear 02/09 showed a large inferior and inferoapical defect with minimal ischemia. The patient had finished dialysis and had acute weakness of his legs. 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 He has mild stable dyspnea but has had no cardiac symptoms otherwise except for trace intermittent edema. None of these have changed. Telemetry has shown sinus bradycardia with first-degree AV block and a single 3 beat run of ventricular tachycardia. Review of Systems Consitutional: COMPLAINS OF: Fatigue Eyes: COMPLAINS OF: Change in vision Respiratory: COMPLAINS OF: Shortness of breath, DENIES: Snoring, Wheezing, Sputum production Genitourinary: COMPLAINS OF: Difficulty voiding, DENIES: Urinary incontinence Neurologic: COMPLAINS OF: Poor Balance, Stroke symptoms, DENIES: Tingling or numbness Musculoskeletal: COMPLAINS OF: Joint pain, Limited range of motion Psychiatric: COMPLAINS OF: Sleep disturbances Past Family Social History Allergies: Coded Allergies: Augmentin (Verified Allergy, Severe, RASH, 05/12/17) Codeine (Verified Allergy, Severe, SWELLING, 05/12/17) Penicillin (Verified Allergy, Severe, RASH, 05/12/17) Prednisone (Verified Allergy, Severe, RASH, 05/12/17) Iodine (Verified Allergy, Unknown, SWELLING, 05/12/17) SON IS NOT AWARE OF THIS AND HE IS PATIENT PORTAL CONCIERGE Lactose (Verified Allergy, Unknown, 05/12/17) Cymbalta (Verified Adverse Reaction, Severe, STOMACH IRRITATION, 05/12/17) Past Medical History Cardiac as above Chronic kidney disease 5 on dialysis Hyperlipidemia Hypertension Diabetes Gastroparesis Guillain-Oakes Neuropathy Peptic ulcer disease Varicose veins with venous insufficiency Past Surgical History Appendectomy left upper extremity AV fistula Bilateral cataracts Cholecystectomy Eye surgery Right internal hernia repair Bilateral rotator cuff repair Bilateral vein stripping Reported Medications Reported Meds & Active Scripts Active Reported Lovastatin 20 Mg Tab 20 Mg PO DAILY Lisinopril 10 Mg Tab 10 Mg PO BID Bumetanide 2 Mg Tab 2 Mg PO SAT, SUN, TUES, THUR Active Ordered Medications Current Medications Medications (Trade) Dose Ordered Sig/Sam Route Start Time Stop Time Status Last Admin (NS Flush) 2 ml UNSCH PRN IV FLUSH 05/12/17 02:30 (NS Flush) 2 ml BID IV FLUSH 05/12/17 09:00 05/14/17 21:23 (Narcan Inj) 0.4 mg UNSCH PRN IV 05/12/17 02:30 (Prinivil) 10 mg BID PO 05/12/17 09:00 05/14/17 21:19 (Bumetanide) 2 mg DAILY PO 05/12/17 09:00 05/14/17 08:48 Aspirin 325 mg 325 mg DAILY PO 05/12/17 18:30 05/14/17 08:48 (NS 1000 ml Inj) 1,000 ml @ 0 mls/hr Q0M PRN IV 05/13/17 16:39 Heparin Sodium (Porcine) 8000 units 8,000 units UNSCH PRN IVF 05/13/17 16:45 Sodium Chloride 1,000 ml @ 200 mls/hr Q5H PRN IV 05/13/17 16:39 (NS 1000 ml Inj) 1,000 ml @ 0 mls/hr Q0M PRN IV 05/13/17 16:39 (Mannitol Inj) 12.5 gm UNSCH PRN IV 05/13/17 16:45 (Albumin 25% Inj) 25 gm UNSCH PRN IV 05/13/17 16:45 (NS Flush) 5 ml UNSCH PRN IV FLUSH 05/13/17 16:45 (Heparin Inj) UNSCH PRN .XX 05/13/17 16:45 (Gentamicin (Dialysis) Inj) 20 mg UNSCH PRN IV 05/13/17 16:45 (Zofran Inj) 4 mg UNSCH PRN IV 05/13/17 16:45 (Tylenol) 650 mg UNSCH PRN PO 05/13/17 16:45 (Benadryl) 25 mg UNSCH PRN PO 05/13/17 16:45 (Nitrostat Sl) 0.4 mg UNSCH PRN SL 05/13/17 16:45 (Catapres) 0.1 mg UNSCH PRN PO 05/13/17 16:45 (Epogen Inj) 4,000 units UNSCH PRN IV 05/13/17 16:45 05/13/17 21:23 (Gelfoam 12 Mm/7 Mm Top) 1 foam UNSCH PRN TOP 05/13/17 16:45 Family History Noncontributory Social History The patient is a . He does not smoke or drink. Physical Exam Vital Signs Vital Signs Date Time Temp Pulse Resp B/P Pulse Ox O2 Delivery O2 Flow Rate FiO2 05/15/17 04:00 98.3 65 18 170/63 98 05/15/17 00:00 98.3 65 16 172/65 100 05/14/17 23:00 62 05/14/17 21:25 96 21 05/14/17 20:00 98.2 62 18 155/62 96 05/14/17 16:00 98.9 64 16 136/49 100 05/14/17 15:18 72 05/14/17 11:55 98.4 61 16 146/61 96 05/14/17 11:15 74 05/14/17 08:00 98.6 64 16 162/65 100 Physical Exam CONSTITUTIONAL: A well-developed, well-nourished patient in no apparent distress. EYES: Conjunctiva normal. Sclera nonicteric. Eyelids normal. No xanthelasma. HEENT: Oral mucosa normal without pallor or cyanosis. NECK: JVD less than or equal to 5 cm of water. RESPIRATORY: Breathing is unlabored without accessory muscle use. Normal breath sounds. No wheezes, rales or rubs present. CARDIOVASCULAR: Normal point of maximal impulse. No cardiac thrill present. Regular rate and rhythm. No gallops, rubs or clicks present. 2/6 early to mid peaking systolic ejection murmur at the base. PULSES: Carotid arteries: Normal pulses bilaterally without bruits. Palmar arteries: Radial pulses 2+ R; 1+ L. Abdominal aorta: Aortic pulses normal without bruits or enlargement. Femoral arteries: 2+ bilaterally. No bruits present. Pedal pulses: 1+ bilaterally PERIPHERAL CIRCULATION: No cyanosis, clubbing, edema or varicosities present. GASTROINTESTINAL: Normal bowel sounds. Nontender without rigidity or guarding. No masses present. No hepatomegaly. Liver is nontender to palpation and spleen is nonpalpable. Digital rectal exam-not indicated for cardiovascular exam. MUSCULOSKELETAL: Mild kyphosis. The patient is not ambulated. Able to undergo rehabilitation. SKIN: Skin turgor is normal. No rashes. NEUROLOGIC: Grossly oriented to person, place and time. Normal mood and appropriate affect. Result Diagram: 05/13/1761905/14/17 0530 Imaging Radiology testing has been reviewed. There is significant thoracic cord narrowing. 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 I would expect he would be a moderate risk for any type of spinal surgery. I have ordered an EKG and will leave it to the primary service to follow-up on the results of this making sure it is stable. Low-cholesterol/salt/diabetic diet Renal follow-up Continue statins We will not follow but be available if needed. His ejection fraction is over 40 % and his ventricular tachycardia was a very short run. We would not pursue further workup of this at present. Alvaro Valdez MD May 15, 2017 06:36
[2017-05-15] MEDS ORDERED: EPOETIN ALFA 4,000 UNITS/ML VIAL IV PRN ×2 (07:57→08:00)
--- NOTE | 2017-05-15 08:44 | EKG ---
Date Performed: 05/15/2017 Time Performed: 06:42:15 PTAGE: 72 years EKG: Sinus rhythm WITH FIRST DEGREE AV BLOCK INDETERMINATE AXIS RIGHT BUNDLE BRANCH BLOCK ABNORMAL ECG PREVIOUS TRACING : 09/29/2015 02.20 Compared to prior tracing no significant change DOCTOR: Getachew Araujo Interpretating Date/Time 05/15/2017 08:42:48
[2017-05-15] MEDS: LISINOPRIL 10 MG TAB PO SCH ×2 (08:47→22:51)
[2017-05-15] MEDS: SODIUM CHLORIDE 0.9% FLUSH 10 ML FLUSH IV FLUSH SCH ×2 (08:47→22:51)
[2017-05-15] MEDS: ASPIRIN 325 MG TAB PO SCH (08:47)
[2017-05-15] MEDS ORDERED: ASPI81TA11 PO (10:10)
[2017-05-15] MEDS ORDERED: ASPI325T PO (10:10)
--- NOTE | 2017-05-15 14:07 | HHI.PR ---
Subjective Remarks Patient seen this morning around 11 AM. Says he is feeling about the same as yesterday. Denies any chest pain or shortness of breath. Discussed with case management. Son has been verbally threatening. Objective Vital Signs Date Time Temp Pulse Resp B/P Pulse Ox O2 Delivery O2 Flow Rate FiO2 05/15/17 11:58 98.0 61 18 169/67 97 05/15/17 08:00 97.5 59 18 158/66 99 05/15/17 07:01 69 05/15/17 04:00 98.3 65 18 170/63 98 05/15/17 00:00 98.3 65 16 172/65 100 05/14/17 23:00 62 05/14/17 21:25 96 21 05/14/17 20:00 98.2 62 18 155/62 96 05/14/17 16:00 98.9 64 16 136/49 100 05/14/17 15:18 72 I/O 05/14/17 05/14/17 05/14/17 05/15/17 05/15/17 05/15/17 07:00 15:00 23:00 07:00 15:00 23:00 Intake Total 80 ml 750 ml 2 ml 280 ml Output Total 300 ml Balance 80 ml 750 ml 2 ml -20 ml Intake Oral 80 ml 750 ml 280 ml IV Total 2 ml Output Urine Total 300 ml # Voids 4 4 # Bowel Movements 0 2 1 Result Diagram: 05/13/17 0620 05/14/17 0530 Objective Remarks GENERAL: Patient lying in bed. Appears comfortable. exam unchnaged SKIN: Warm and dry. HEAD: Normocephalic. EYES: No scleral icterus. No injection or drainage. NECK: Supple, trachea midline. No JVD. CARDIOVASCULAR: Regular rate and rhythm without murmurs, gallops, or rubs. RESPIRATORY: Breath sounds equal bilaterally. No accessory muscle use. GASTROINTESTINAL: Abdomen soft, non-tender, nondistended. MUSCULOSKELETAL: No cyanosis, or edema. Bilateral lower extremity weakness. BACK: Nontender without obvious deformity. No CVA tenderness. A/P Assessment and Plan ====05/15/17===== Constipation. resolved. Thoracic spinal stenosis. neurosurgery reports no change on imaging from 2013, feels surgery not indicated at this time. Preoperative clearance. moderated risk for any spinal surgery as per cardiology weakness. further labs ordered. for peripheral neuropathy. Discharge planning. son apparently has threatened CM. refuses DC for SNF. patient will need HD today. veronicaley DC tomorrow to SNF. //Weakness /Thoracic spinal stenosis. -with subacute changes from intrinsic musculoskeletal issues -Neurology following. Appreciate assistance. -Imaging as above. Continue with physical therapy -Neurosurgery evaluation pending. //DM (diabetes mellitus) - Currently controlled with diet no further monitoring needed, Random BG wnl //CHF (congestive heart failure) //Asymptomatic ventricular tachycardia. 10 beats noted overnight on 05/14. - With a history of EF of about 40% and with elevated pulmonary artery pressure , continue CLIFFORD inhibitor and Bumex -Cardiology consult for V. tach, as well as preoperative evaluation. //Physical deconditioning - Chronic due to poor overall medical health a and abnl MRI with findings below Continue PT/OT as tolerated, // HTN (hypertension). Chronic - Controlled on lisinopril and Bumex, continue follow-up and HD //Constipation. Laxative order. 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 No liner roll changer the past month. Follow-up with ophthalmology as outpatient. //ESRD (end stage renal disease) -Cont HD MWF Nephrology ff. appreciate assist Discharge Planning Discharge planning. son apparently has threatened CM. refuses DC for SNF. patient will need HD today. hoda DC tomorrow to SNF. Elias Forde MD May 15, 2017 14:07
[2017-05-15] MEDS ORDERED: OXYMETAZOLINE HCL 0.05% 15 ML NASAL SPRAY NASAL ONE (18:30)
[2017-05-15] MEDS ORDERED: cloNIDine HCL 0.1 MG TAB PO ONE (18:30)
[2017-05-15 18:33] LABS: AUTOMATED NEUTROPHIL # 4.2 TH/MM3 (1.8-7.7); BASOPHIL % 0.2 % (0.0-2.0); EOSINOPHIL # 0.2 TH/MM3 (0-0.4); HEMATOCRIT 31.4 % (39.0-51.0); HEMO FLAGS DIFF FINAL; LYMPH % 18.7 % (9.0-44.0); LYMPHOCYTE # 1.1 TH/MM3 (1.0-4.8); MEAN CELL VOLUME 85.8 FL (80.0-100.0); MEAN CORPUSCULAR HEMOGLOBIN 27.9 PG (27.0-34.0); MEAN CORPUSCULAR HGB CONC 32.5 % (32.0-36.0); MONO % 7.9 % (0.0-8.0); NEUT % 70.2 % (16.0-70.0); PLATELET COUNT 149 TH/MM3 (150-450); RED BLOOD COUNT 3.66 MIL/MM3 (4.50-5.90); RED CELL DISTRIBUTION WIDTH 14.4 % (11.6-17.2)
[2017-05-15 18:44] LABS: PROTHROMBIN TIME - PATIENT 10.7 SEC (9.8-11.6)
--- NOTE | 2017-05-15 21:22 | HHI.NPPN ---
Subjective General Problems: Anemia Renal Failure: Chronic, End Stage Renal Disease Interval History Dialysis today. All the notes were reviewed. Review of Systems General Constitutional: Fatigue Musculoskeletal MS Remarks muscle weakness. Neuro Neuro Remarks weakness Objective Data Data 05/14/17 05/15/17 18:59 06:59 Intake Total 752 ml 280 ml Output Total 300 ml Balance 752 ml -20 ml Intake Oral 750 ml 280 ml IV Total 2 ml Output Urine Total 300 ml # Voids 4 # Bowel Movements 2 1 Vital Signs Date Time Temp Pulse Resp B/P Pulse Ox O2 Delivery O2 Flow Rate FiO2 05/15/17 16:38 63 05/15/17 16:00 97.6 61 18 177/66 99 05/15/17 11:58 98.0 61 18 169/67 97 05/15/17 08:00 97.5 59 18 158/66 99 05/15/17 07:01 69 05/15/17 04:00 98.3 65 18 170/63 98 05/15/17 00:00 98.3 65 16 172/65 100 05/14/17 23:00 62 05/14/17 21:25 96 21 -: 05/15/17 1822 05/14/17 0530 Physical Exam General Appearance: Well Developed, No Acute Distress, Comfortable Ears & Nose Ears & Nose Exam: Tympanic Membranes Normal Throat Throat Exam: Oral Mucosa [place] & Moist Pulmonary Resp Exam: Clear Bilaterally, Breath Sounds Equal Cardiology CV Exam: Regular, Normal Sinus Rhythm Gastrointestinal/Abdomen GI Exam: Soft, Non-Tender Musculoskeletal MS Exam: Normal Tone, Good Strength Integumentary Skin Exam: Warm, Dry Extremeties Extremities Exam: No Edema, Pedal Pulses Palpable Neurologic Neuro Exam: Alert, Awake, Oriented, Speech Clear, Moving All Extremities Assessment/Plan Discussed Condition With: Patient Assessment Summary: Anemia of CKD, End Stage Renal Disease Problem List: (1) ESRD (end stage renal disease) Plan: Continue dialysis MWF. use Permcath for HD avoid LUE IV sticks, protect new fistula phosphorus level is acceptable, he is not on binder therapy avoid IVF, gadolinium is contraindicated he makes urine, is on Bumex on non HD days (2) HTN (hypertension) Plan: monitor blood pressure ordered lisinopril (3) DM (diabetes mellitus) Plan: insulin as ordered (4) Anemia Plan: continue epogen with HD (5) Weakness Plan: neurology has been following appreciate further recommendations he was started on ASA neurosurgery has been consulted unlikely to be GB per neuro, possible thoracic cord compression causing weakness Plan patient was seen and examined. Agree with above assessment and plan. Problem Qualifiers (1) HTN (hypertension): Qualified Code: I10 - Essential hypertension Sanju Cameron MD May 15, 2017 21:21
--- NOTE | 2017-05-15 23:21 | PD.CONS ---
History of Present Illness Service Neurosurgery Consult Requested By Elias Forde M.D. Reason for Consult Lower extremity weakness Primary Care Physician Non-Staff Diagnoses: History of Present Illness The patient is a 72-year-old gentleman who gives a history of chronic lower extremity weakness. 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 He underwent a prolonged recovery but eventually was doing relatively well until 1993 when he was again hospitalized for 3 months with a similar episode. In 2008 he had a somewhat more mild episode involving primarily the lower extremities which was treated with outpatient physical therapy. He continued to have significant primarily distal lower extremity weakness and in 2011 was fitted with bilateral AFO braces due to significant foot drop. He states that since 2011 his lower extremity weakness has remained relatively stable. He uses a walker to ambulate for short distances. The patient is on chronic hemodialysis. He states that this past Thursday as he was leaving following dialysis, his legs suddenly became weak and gave out on him. His family assisted him. He did not fall. He does not believe that he was lightheaded or passed out, but states that he does not really recall the entire episode. Since then he has had persistent weakness in the lower extremities. He has chronic numbness in the calves and feet which she feels might be somewhat worse in the past few days. He does not indicate any new problems with bowel or bladder function. Mr. Salazar also complains of chronic upper extremity weakness which has been relatively stable over the past 2 or 3 years. He states that he cannot open jars or perform other moderate to strenuous activities with his hands, and has significant loss of upper extremity coordination. He has relatively mild decreased sensation in his fingertips which he attributes to fingersticks for diabetes. He states that for the past month or 2 he has had increasing spasms in the lower extremities. Review of Systems Constitutional: COMPLAINS OF: Fatigue, DENIES: Fever, Change in appetite Eyes: COMPLAINS OF: Vision loss Ears, nose, mouth, throat: DENIES: Hearing loss, Vertigo Respiratory: DENIES: Cough, Shortness of breath Cardiovascular: DENIES: Chest pain, Palpitations Gastrointestinal: DENIES: Abdominal pain, Nausea, Vomiting Genitourinary: DENIES: Urinary incontinence Musculoskeletal: COMPLAINS OF: Joint pain, Muscle aches, Back pain, Neck pain Hematologic/lymphatic: DENIES: Bruising Neurologic: COMPLAINS OF: Abnormal gait, Poor Balance, DENIES: Headache Psychiatric: DENIES: Confusion Past Family Social History Allergies: Coded Allergies: Augmentin (Verified Allergy, Severe, RASH, 05/12/17) Codeine (Verified Allergy, Severe, SWELLING, 05/12/17) Penicillin (Verified Allergy, Severe, RASH, 05/12/17) Prednisone (Verified Allergy, Severe, RASH, 05/12/17) Iodine (Verified Allergy, Unknown, SWELLING, 05/12/17) SON IS NOT AWARE OF THIS AND HE IS PATCH DRILLER Lactose (Verified Allergy, Unknown, 05/12/17) Cymbalta (Verified Adverse Reaction, Severe, STOMACH IRRITATION, 05/12/17) Past Medical History History of diabetes Hypertension Chronic kidney disease on dialysis Congestive heart failure Left retinal detachment Chronic depression Past Surgical History Surgery for retinal detachment Bilateral cataract surgery Cholecystectomy Bilateral hernia repair Bilateral rotator cuff surgery Appendectomy Reported Medications Reported Meds & Active Scripts Active Aspirin EC (Aspirin) 81 Mg Tabdr 81 Mg PO DAILY 30 Days Start after completing one month of aspirin 325mg daily. Aspirin 325 Mg Tab 325 Mg PO DAILY 30 Days after one Month, switch to 81 mg by mouth daily. Reported Lovastatin 20 Mg Tab 20 Mg PO DAILY Lisinopril 10 Mg Tab 10 Mg PO BID Bumetanide 2 Mg Tab 2 Mg PO SAT, SUN, WICHO, THSTEFANO Family History Positive for diabetes. Negative for neurologic disorders Social History Does not smoke cigarettes or drink alcohol Physical Exam Vital Signs Vital Signs Date Time Temp Pulse Resp B/P Pulse Ox O2 Delivery O2 Flow Rate FiO2 05/15/17 22:07 98.5 59 18 141/59 99 05/15/17 16:38 63 05/15/17 16:00 97.6 61 18 177/66 99 05/15/17 11:58 98.0 61 18 169/67 97 05/15/17 08:00 97.5 59 18 158/66 99 05/15/17 07:01 69 05/15/17 04:00 98.3 65 18 170/63 98 05/15/17 00:00 98.3 65 16 172/65 100 05/14/17 23:00 62 Physical Exam GENERAL: This is a well-nourished, well-developed patient, in no apparent distress. SKIN: No rashes, ecchymoses. Cool and dry. HEAD: Atraumatic. Normocephalic. No temporal or scalp tenderness. EYES: Sclerae are clear and nonicteric. Absent vision in the left eye. Counts fingers all quadrants and the right eye ENT: Oropharynx clear. NECK: Mild neck tenderness. Normal range of motion. Supple, nontender, no meningeal signs. CARDIOVASCULAR: Regular rate and rhythm without murmurs, gallops, or rubs. RESPIRATORY: Clear to auscultation. Breath sounds equal bilaterally. No wheezes , rales, or rhonchi. GASTROINTESTINAL: Abdomen soft, non-tender, nondistended. No hepato-splenomegaly , or palpable masses. No guarding. MUSCULOSKELETAL: Extremities without cyanosis. Moderate left and mild right distal lower extremity edema. No joint tenderness, effusion, or edema noted. No calf tenderness. Posterior tibial and dorsalis pedis pulses are 2+ bilateral NEUROLOGICAL: Awake and alert. Speech is mild to moderately slowed. Answers questions appropriately and follows simple commands well. Appears somewhat depressed. No obvious anxiety. Appears to have reasonable judgment and insight. Recent and remote memory appear reasonably intact. He answers questions appropriately and follows simple commands well. Cranial nerves II through XII intact except for absent vision in the left eye. Sensation intact to light touch in the upper extremities. Sensation is markedly diminished in a diffuse distribution in the distal right and left lower extremity below the knees. Strength is within normal limits in the proximal right and left lower extremity. Motor function is diminished to mostly 3/5 left, 3+/5 right hand intrinsics, abductor digiti quinti minimi, abductor pollicis longus and brevis. Strength in the lower extremity is as follows: Iliopsoas 4+/5 bilateral Quadriceps 3 left, 3+ right Hamstrings 4+ right and left Gastrocsoleus 2+ left, 3 right. Tibialis anterior 2 left, 3 right Edy's response absent bilateral No ankle clonus Plantar responses are neutral There is significant thenar and hand intrinsic muscle wasting in the right and left hand. Laboratory Laboratory Tests Test 05/15/17 05/15/17 14:20 18:22 Thyroid Stimulating Hormone 1.170 3rd Gen White Blood Count 6.0 Red Blood Count 3.66 Hemoglobin 10.2 Hematocrit 31.4 Mean Corpuscular Volume 85.8 Mean Corpuscular Hemoglobin 27.9 Mean Corpuscular Hemoglobin 32.5 Concent Red Cell Distribution Width 14.4 Platelet Count 149 Mean Platelet Volume 8.3 Neutrophils (%) (Auto) 70.2 Lymphocytes (%) (Auto) 18.7 Monocytes (%) (Auto) 7.9 Eosinophils (%) (Auto) 3.0 Basophils (%) (Auto) 0.2 Neutrophils # (Auto) 4.2 Lymphocytes # (Auto) 1.1 Monocytes # (Auto) 0.5 Eosinophils # (Auto) 0.2 Basophils # (Auto) 0.0 CBC Comment DIFF FINAL Differential Comment Prothrombin Time 10.7 Prothromb Time International 1.0 Ratio Fibrinogen 382 Result Diagram: 05/15/17 1822 05/14/17 0530 Imaging 05/12/2017 MRI of the cervical, thoracic, and lumbar spine images are all reviewed by the undersigned. Agree with findings as noted below: Thoracic Spine MRI 05/12/17 0000 Signed Impressions: Service Date/Time: Friday, May 12, 2017 13:31 - CONCLUSION: The thoracic cord is quite narrowed from the T6 vertebral body down to T11. There some prominence of the central canal signal could be a small syrinx from T7-T9. I don't see any definite cord edema. Ishan Anthony MD Lumbar Spine MRI 05/12/17 0000 Signed Impressions: Service Date/Time: Friday, May 12, 2017 13:31 - CONCLUSION: Mild bulges at L3-4 and L4-5. Minimal discogenic edema anteriorly at the L3-4 level. Stable exam since 2013. Ishan Anthony MD Lower Extremity Ultrasound 05/12/17 0000 Signed Impressions: Service Date/Time: Friday, May 12, 2017 07:45 - CONCLUSION: No deep venous thrombosis left leg. Lower extremity edema. Redd Honeycutt MD Head CT 05/12/17 0000 Signed Impressions: Service Date/Time: Friday, May 12, 2017 01:34 - CONCLUSION: Stable CT scan of the brain compared to 2015. Santy Mc MD Cervical Spine MRI 05/12/17 0000 Signed Impressions: Service Date/Time: Friday, May 12, 2017 13:31 - CONCLUSION: The C6-7 level is fused. Moderate intervertebral disc present at the C5-6 level very similar to 2014. Ishan Anthony MD Brain MRI 05/12/17 0000 Signed Impressions: Service Date/Time: Friday, May 12, 2017 13:31 - CONCLUSION: Mild chronic ischemic demyelinization change. No evidence of acute edema, hemorrhage, mass or mass effect. Ishan Anthony MD Assessment and Plan Assessment and Plan Impression: 1. Acute on chronic lower extremity paresis. The patient's imaging studies suggest probable chronic thoracic cord atrophy. However there is a significant possibility of acute spinal cord ischemia or infarction, potentially related to post dialysis hypotension, potentially with underlying vascular disease related to chronic diabetes and hypertension. Less likely embolic disease. 2. Diabetes 3. Chronic kidney disease on dialysis 4. History of hypertension Recommendations: The findings were discussed at length with the patient's son on the telephone on the evening of 05/14/2017 and again extensively on the telephone on the evening of 05/15/2017. The patient does not have any ongoing spinal cord compressive lesions. 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 I advised the patient and his son that there may be an option to proceed with a vascular study of the thoracic cord. However it is unlikely that this would yield a diagnosis, and if a area of vascular compromise is actually found, it would not likely be treatable by any means at this point. It is unlikely that the benefit of an invasive angiogram would outweigh the potential risks at this point. The patient's son has inquired regarding discharge to inpatient rehabilitation. No further neurosurgical intervention is anticipated at this point. The patient actually has retained relatively good strength in the lower extremities at this time, with mostly what appears to be chronic distal lower extremity weakness. He appears to have at least a moderate prognosis for improvement with therapy. I have answered all of the patient's and family questions. Austin Orlando MD May 15, 2017 23:21
[2017-05-16 00:32] VITALS: BP 129/55; PULSE 58; RESP 14; TEMP 98.5; O2SAT 100
[2017-05-16 04:29] VITALS: BP 137/53; PULSE 56; RESP 12; TEMP 98.8; O2SAT 97
[2017-05-16 08:00] VITALS: BP 142/61; PULSE 54; RESP 18; TEMP 97.7; O2SAT 97
[2017-05-16] MEDS: LISINOPRIL 10 MG TAB PO SCH (08:58)
[2017-05-16] MEDS: ASPIRIN 325 MG TAB PO SCH (08:58)
[2017-05-16] MEDS ORDERED: BUMETANIDE 1 MG TAB PO SCH (09:00)
[2017-05-16] MEDS: SODIUM CHLORIDE 0.9% FLUSH 10 ML FLUSH IV FLUSH SCH (09:01)
[2017-05-16 12:00] VITALS: BP 126/53; PULSE 60; RESP 18; TEMP 97; O2SAT 96
--- NOTE | 2017-05-16 14:52 | HHI.NPPN ---
Subjective General Problems: Anemia Renal Failure: Chronic, End Stage Renal Disease Additional Remarks Patient is alert, want to eat, no SOB. Review of Systems General Constitutional: Fatigue Musculoskeletal MS Remarks muscle weakness. Neuro Neuro Remarks weakness Objective Data Data 05/15/17 05/16/17 18:59 06:59 Intake Total 872 ml 480 ml Output Total 6000 ml Balance 872 ml -5520 ml Intake Oral 870 ml 480 ml IV Total 2 ml Hemodialysis 6000 ml # Voids 2 1 # Bowel Movements 1 Vital Signs Date Time Temp Pulse Resp B/P Pulse Ox O2 Delivery O2 Flow Rate FiO2 05/16/17 12:00 97.0 60 18 126/53 96 05/16/17 08:00 97.7 54 18 142/61 97 05/16/17 04:29 98.8 56 12 137/53 97 05/16/17 00:32 98.5 58 14 129/55 100 05/15/17 22:07 98.5 59 18 141/59 99 05/15/17 21:00 63 05/15/17 16:38 63 05/15/17 16:00 97.6 61 18 177/66 99 -: 05/15/17 1822 05/14/17 0530 Physical Exam General Appearance: Well Developed, No Acute Distress, Comfortable Ears & Nose Ears & Nose Exam: Tympanic Membranes Normal Throat Throat Exam: Oral Mucosa Fromberg & Moist Pulmonary Resp Exam: Clear Bilaterally, Breath Sounds Equal Cardiology CV Exam: Regular, Normal Sinus Rhythm Gastrointestinal/Abdomen GI Exam: Soft, Non-Tender Musculoskeletal MS Exam: Normal Tone, Good Strength Integumentary Skin Exam: Warm, Dry Extremeties Extremities Exam: No Edema, Pedal Pulses Palpable Neurologic Neuro Exam: Alert, Awake, Oriented, Speech Clear, Moving All Extremities Assessment/Plan Discussed Condition With: Patient Assessment Summary: Anemia of CKD, End Stage Renal Disease Problem List: (1) ESRD (end stage renal disease) Plan: Continue dialysis MWF. use Permcath for HD avoid LUE IV sticks, protect new fistula phosphorus level is acceptable, he is not on binder therapy avoid IVF, gadolinium is contraindicated he makes urine, is on Bumex on non HD days. HD done yesterday, continue HD, MWF. (2) HTN (hypertension) Plan: monitor blood pressure ordered lisinopril (3) DM (diabetes mellitus) Plan: insulin as ordered (4) Anemia Plan: continue epogen with HD (5) Weakness Plan: neurology has been following appreciate further recommendations he was started on ASA neurosurgery has been consulted unlikely to be GB per neuro, possible thoracic cord compression causing weakness Problem Qualifiers (1) HTN (hypertension): Qualified Code: I10 - Essential hypertension Rogelio Mcdaniel MD May 16, 2017 14:52
--- NOTE | 2017-05-17 14:37 | HHI.DS ---
Discharge Summary Admission Date May 12, 2017 at 02:18 Discharge Date: May 16, 2017 Admitting Diagnosis weakness (1) Weakness ICD Code: R53.1 (2) DM (diabetes mellitus) ICD Code: E11.9 (3) CHF (congestive heart failure) ICD Code: I50.9 (4) Physical deconditioning ICD Code: R53.81 (5) HTN (hypertension) ICD Code: I10 (6) ESRD (end stage renal disease) ICD Code: N18.6 Procedures none Brief History - From Admission Patient is a 72-year-old gentleman with a history of hypertension and chronic weakness as well as a diabetic neuropathy who came to the hospital complaining of increased weakness in his legs for the last week. He was at dialysis and his legs gave out so that he could not move by himself. He was brought to the hospital for further evaluation observation. Patient denies any pain is weakness of severe worsening tries to move. Patient has had this progressive issue for some time and his family has requested a physical rehabilitation. CBC/BMP: 05/15/17 1822 05/14/17 0530 Significant Findings Laboratory Tests Test 05/15/17 18:22 Red Blood Count 3.66 MIL/MM3 (4.50-5.90) Hemoglobin 10.2 GM/DL (13.0-17.0) Hematocrit 31.4 % (39.0-51.0) Platelet Count 149 TH/MM3 (150-450) Neutrophils (%) (Auto) 70.2 % (16.0-70.0) Fibrinogen 382 mg/dL (227-377) Imaging Last Impressions Thoracic Spine MRI 05/12/17 0000 Signed Impressions: Service Date/Time: Friday, May 12, 2017 13:31 - CONCLUSION: The thoracic cord is quite narrowed from the T6 vertebral body down to T11. There some prominence of the central canal signal could be a small syrinx from T7-T9. I don't see any definite cord edema. Ishan Anthony MD Lumbar Spine MRI 05/12/17 0000 Signed Impressions: Service Date/Time: Friday, May 12, 2017 13:31 - CONCLUSION: Mild bulges at L3-4 and L4-5. Minimal discogenic edema anteriorly at the L3-4 level. Stable exam since 2013. Ishan Anthony MD Lower Extremity Ultrasound 05/12/17 0000 Signed Impressions: Service Date/Time: Friday, May 12, 2017 07:45 - CONCLUSION: No deep venous thrombosis left leg. Lower extremity edema. Redd Honeycutt MD Head CT 05/12/17 0000 Signed Impressions: Service Date/Time: Friday, May 12, 2017 01:34 - CONCLUSION: Stable CT scan of the brain compared to 2015. Santy Mc MD Cervical Spine MRI 05/12/17 0000 Signed Impressions: Service Date/Time: Friday, May 12, 2017 13:31 - CONCLUSION: The C6-7 level is fused. Moderate intervertebral disc present at the C5-6 level very similar to 2014. Ishan Anthony MD Brain MRI 05/12/17 0000 Signed Impressions: Service Date/Time: Friday, May 12, 2017 13:31 - CONCLUSION: Mild chronic ischemic demyelinization change. No evidence of acute edema, hemorrhage, mass or mass effect. Ishan Anthony MD PE at Discharge GENERAL: This is a well-nourished, well-developed patient, complaining of leg weakness CARDIOVASCULAR: Regular rate and rhythm without murmurs, gallops, or rubs. RESPIRATORY: Clear to auscultation. Breath sounds equal bilaterally. No wheezes , rales, or rhonchi. GASTROINTESTINAL: Abdomen soft, non-tender, nondistended. Normal active bowel sounds MUSCULOSKELETAL: Extremities without clubbing, cyanosis, or edema. NEURO: Alert & Oriented x4 to person, place, time, situation. Moves upper extremities 3/5 and lower 1-2/5 Pt update on day of discharge pt feeling well. no cp or sob. i discussed with CM. family refused SNF, wanted to take pt home. home DC would be against medical advice. Hospital Course Neurology was consulted. Patient underwent CT head as above with no acute findings. Thoracic imaging as above with syrinx, for which neurosurgery was consulted. Neurosurgery feels that there is no acute change, and no indication for surgery at this time. Hemodialysis was continued during admission. Labs are still pending 41, 25 dihydroxy vitamin D, as well as methylmalonic acid. TSH and B12 within normal limits. Physical therapy evaluated the patient, and due to gradual decrease in strength, feels that patient would benefit from rehabilitation. For problem-based summary from most recent progress note, please see below. ====05/15/17===== Constipation. resolved. Thoracic spinal stenosis. neurosurgery reports no change on imaging from 2013, feels surgery not indicated at this time. Preoperative clearance. moderated risk for any spinal surgery as per cardiology weakness. further labs ordered. for peripheral neuropathy. Discharge planning. son apparently has threatened CM. refuses DC for SNF. patient will need HD today. likley DC tomorrow to SNF. //Weakness /Thoracic spinal stenosis. -with subacute changes from intrinsic musculoskeletal issues -Neurology following. Appreciate assistance. -Imaging as above. Continue with physical therapy -Neurosurgery evaluation pending. //DM (diabetes mellitus) - Currently controlled with diet no further monitoring needed, Random BG wnl //CHF (congestive heart failure) //Asymptomatic ventricular tachycardia. 10 beats noted overnight on 05/14. - With a history of EF of about 40% and with elevated pulmonary artery pressure , continue CLIFFORD inhibitor and Bumex -Cardiology consult for V. tach, as well as preoperative evaluation. //Physical deconditioning - Chronic due to poor overall medical health a and abnl MRI with findings below Continue PT/OT as tolerated, // HTN (hypertension). Chronic - Controlled on lisinopril and Bumex, continue follow-up and HD //Constipation. Laxative order. 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 No policy change clerk the past month. Follow-up with ophthalmology as outpatient. //ESRD (end stage renal disease) -Cont HD MWF Nephrology ff. appreciate assist Discharge Planning Discharge planning. son apparently has threatened CM. refuses DC for SNF. patient will need HD today. likley DC tomorrow to SNF. Pt Condition on Discharge: Good Discharge Disposition: Discharge to SNF Discharge Time: <= 30 minutes Discharge Instructions DIET: Follow Instructions for: Heart Healthy Diet, Renal Failure Diet Activities you can perform: Regular-No Restrictions Other Activity Instructions: up with supervision Follow up Referrals: Cardiology - 1 Week with Alvaro Valdez MD Nephrology - Next Day with Sanju Cameron MD Neurology - 2 Weeks with Devon Segovia MD Ophthalmology - 1 Week with Erna Montaño MD New Medications: Aspirin DR (Aspirin EC) 81 Mg Tabdr 81 MG PO DAILY Start after completing one month of aspirin 325mg daily. prevent stroke Days 30 Ref 0 TAB Aspirin (Aspirin) 325 Mg Tab 325 MG PO DAILY after one Month, switch to 81 mg by mouth daily. heart/ prevent stroke Days 30 TAB Continued Medications: Bumetanide (Bumetanide) 2 Mg Tab 2 MG PO Sat, Nola Faith Thur Ref 0 TAB Lisinopril (Lisinopril) 10 Mg Tab 10 MG PO BID #30 Ref 0 TAB Lovastatin (Lovastatin) 20 Mg Tab 20 MG PO DAILY Cholesterol Management #30 Ref 0 TAB Elias Forde MD May 17, 2017 14:37
== END 2017-05-16 15:01 | disposition left against medical advice (07) ==
LOC: PHED 00:10 → PHEDA 02:18 → PH3B 03:07
PROVIDERS: ADMIT Internal Medicine; ATTEND Internal Medicine
DX: R53.1 Weakness (principal); I13.2 Hypertensive heart and chronic kidney disease with heart failure and with stage 5 chronic kidney disease, or end stage renal disease; I50.9 Heart failure, unspecified; N18.6 End stage renal disease; Z99.2 Dependence on renal dialysis; E78.5 Hyperlipidemia, unspecified; G40.909 Epilepsy, unspecified, not intractable, without status epilepticus; G47.30 Sleep apnea, unspecified; R53.81 Other malaise; E11.40 Type 2 diabetes mellitus with diabetic neuropathy, unspecified; F32.9 Major depressive disorder, single episode, unspecified; M19.90 Unspecified osteoarthritis, unspecified site; G61.0 Guillain-Barre syndrome; K59.00 Constipation, unspecified; D63.1 Anemia in chronic kidney disease; I27.2 Other secondary pulmonary hypertension; I47.2 Ventricular tachycardia; Z79.899 Other long term (current) drug therapy; Z79.82 Long term (current) use of aspirin; I45.10 Unspecified right bundle-branch block; I44.0 Atrioventricular block, first degree
CPT/HCPCS: 70450; 70551; 72141; 72146; 72148; 80048; 80053; 80061; 80069; 82306; 82525; 82607; 82652; 83036; 83735; 83921; 84443; 85025; 85384; 85610; 85652; 85730; 90935; 93005; 93971; 96374; 96375; 97110; 97162; 97167; 97530; 99285; G0257; G0378; G8987; G8988; J1580; J1644; J7030; Q4081

== ENCOUNTER 2018-01-28 20:27 | Inpatient (IN) | payer OTHER, MEDICARE ==
[~2018-01-28] VITALS: Ht 180.3 cm; Wt 98.7 kg
[~2018-01-28 20:27] MED LIST changes: -AMLO10 PO; +ASPI-183 PO; +ASPI81TA23 PO; +BUME2TAB PO; -CARV12.5 PO; -CITA20TA4 PO; -COZA100T PO; -HUMALOG SQ; -HYDR-3580 PO; -LANTUS2P SC; +LISI10TA3 PO; -SPIR25 PO; -ZOLP5TAB3 PO
[2018-01-28 20:56] VITALS: BP 130/60; PULSE 50; RESP 16; TEMP 98.9; O2SAT 96
[2018-01-28 21:50] VITALS: BP 179/72; PULSE 60; RESP 16; O2SAT 92; O2SAT 95
[2018-01-28 21:59] LABS: AUTOMATED NEUTROPHIL # 4.4 TH/MM3 (1.8-7.7); BASOPHIL % 0.4 % (0.0-2.0); EOSINOPHIL # 0.1 TH/MM3 (0-0.4); EOSINOPHIL % 1.8 % (0.0-4.0); HEMATOCRIT 25.6 % (39.0-51.0); HEMOGLOBIN 8.5 GM/DL (13.0-17.0); LYMPH % 13.8 % (9.0-44.0); LYMPHOCYTE # 0.8 TH/MM3 (1.0-4.8); MEAN CELL VOLUME 98.3 FL (80.0-100.0); MEAN CORPUSCULAR HEMOGLOBIN 32.4 PG (27.0-34.0); MEAN PLATELET VOLUME 8.7 FL (7.0-11.0); MONO % 9.6 % (0.0-8.0); MONOCYTE # 0.6 TH/MM3 (0-0.9); NEUT % 74.4 % (16.0-70.0); PLATELET COUNT 140 TH/MM3 (150-450); RED BLOOD COUNT 2.61 MIL/MM3 (4.50-5.90); RED CELL DISTRIBUTION WIDTH 16.8 % (11.6-17.2); WHITE BLOOD COUNT 5.9 TH/MM3 (4.0-11.0)
[2018-01-28 22:09] LABS: ALBUMIN 3.4 GM/DL (3.4-5.0); ALT (GPT) 20 U/L (12-78); AST (GOT) 18 U/L (15-37); BICARBONATE 29.1 MEQ/L (21.0-32.0); BLOOD UREA NITROGEN 49 MG/DL (7-18); CALCIUM 7.9 MG/DL (8.5-10.1); CHLORIDE 97 MEQ/L (98-107); CREATININE 5.25 MG/DL (0.60-1.30); GLOMERULAR FILTRATION RATE 11 ML/MIN (>89); GLUCOSE,RANDOM 134 MG/DL (74-106); SODIUM (NA) 136 MEQ/L (136-145)
--- NOTE | 2018-01-28 22:11 | RADRPT ---
EXAM DATE/TIME: 01/28/2018 21:50 [facility] COMPARISON: CHEST SINGLE AP, September 29, 2015, 2:39. INDICATIONS : Short of breath MEDICAL HISTORY : Diabetes mellitus type 2. Hypertension. Gastroesophageal reflux disease SURGICAL HISTORY : Appendectomy. Retina surgery. Infusaport ENCOUNTER: Initial ACUITY: 1 day PAIN SCORE: 0/10 LOCATION: chest FINDINGS: Right-sided dual-lumen catheter tip in right atrium. Cardiomegaly. Mild basilar airspace disease. Tra ce pleural fluid. No pneumothorax. CONCLUSION: Dual-lumen right central catheter tip in right atrium. Minimal basilar airspace disease. Trace pleura l fluid. Cardiomegaly. Alonso Tam MD on January 28, 2018 at 22:07 Board Certified Radiologist. This report was verified electronically.
[2018-01-28 22:13] LABS: ALKALINE PHOSPHATASE 127 U/L (45-117); TOTAL BILIRUBIN ADULT 0.5 MG/DL (0.2-1.0); TOTAL PROTEIN 7.2 GM/DL (6.4-8.2); TROPONIN I 0.04 NG/ML (0.02-0.05)
[2018-01-29] VITALS (10 sets, daily range): BP systolic 133–179; BP diastolic 64–75; PULSE 60–73; RESP 14–18; TEMP 98–98.2; O2SAT 85–99
--- NOTE | 2018-01-29 00:10 | PD ---
HPI Chief Complaint: General Weakness Time Seen by Provider: 21:37 Travel History International Travel<30 days: No Contact w/Intl Traveler<30days: No Traveled to known affect area: No History of Present Illness HPI Patient is a 71-year-old male with diabetes hypertension peripheral neuropathy was recently [facility] from [facility] and family is upset feeling he is not stable enough to be home. He has been home for about 12 hours they say he is weak dizzy and generalized malaise. They called the insurance company who said that they have been discharged due to insurance issues and that he needed to return to the ER and if he is readmitted they possibly can pay for a increased stay in the rehab. Patient is complaining of shortness of breath dizziness weakness, denies fever, denies diarrhea denies cough . However on room air he is desaturating to 85 on 2 L his sat is 98 and he is mildly anemic with a hemoglobin of 8.5 PFSH Past Medical History Arthritis: Yes Asthma: No Autoimmune Disease: Yes (Katya Cohen) Blood Disorders: No Anxiety: No Depression: Yes Heart Rhythm Problems: No Cancer: No Cardiovascular Problems: Yes ([place] 2013) High Cholesterol: Yes Chemotherapy: No Chest Pain: No Congestive Heart Failure: Yes COPD: No Cerebrovascular Accident: No Diabetes: Yes (Fistula upper left arm) Patient Takes Glucophage: Yes (gabapentin ) Diminished Hearing: No Endocrine: Yes Gastrointestinal Disorders: Yes (HX GASTRIC ULCER) GERD: Yes Headaches: Yes (OCCASSIONAL) Hepatitis: No Hiatal Hernia: Yes Hypertension: Yes Immune Disorder: No Implanted Vascular Access Dvce: Yes Kidney Stones: No Medical other: Yes (BE LEG EDEMA, LIVER ENZYMES ELEVATED,HX ANKLE ULCER FROM DIABETES) Musculoskeletal: Yes (DDD LOWER BACK, ARTHRITIS HANDS, NECK AND BACK) Neurologic: Yes ([id number] KATYA COHEN 1990, 94 and 09) Psychiatric: No Reproductive: No Respiratory: Yes (SLEEP APNEA (refuses to use)) Migraines: No Radiation Therapy: No Renal Failure: No Seizures: Yes (LAST 1984) Sleep Apnea: Yes (refuses to use machine) Thyroid Disease: No Ulcer: Yes (HX OF) PNEUMOCCOCAL Vaccine (Year): 2009 Past Surgical History Abdominal Surgery: Yes (CHOLY,APPY) AICD: No Appendectomy: Yes Arteriovenous Shunt: No Body Medical Devices: LENS IN BILAT EYES Cardiac Surgery: No Cholecystectomy: Yes Ear Surgery: No Endocrine Surgery: No Eye Surgery: Yes (BILAT CATARACTS; DETATCHED RETINA ON L/ALSO 2 SURGERIE TO L EFT EYE) Genitourinary Surgery: No Gynecologic Surgery: No Insulin Pump: No Joint Replacement: No Oral Surgery: No Pacemaker: No Thoracic Surgery: No Other Surgery: Yes (BILAT LEG, VERICOSE VEIN SX) Social History Alcohol Use: No Tobacco Use: No Substance Use: No Allergies-Medications (Allergen,Severity, Reaction): Coded Allergies: amoxicillin (Unverified Allergy, Severe, RASH, 06/09/17) clavulanic acid (Unverified Allergy, Severe, RASH, 06/09/17) codeine (Unverified Allergy, Severe, SWELLING, 06/09/17) penicillin G (Unverified Allergy, Severe, RASH, 06/09/17) prednisone (Unverified Allergy, Severe, RASH, 06/09/17) iodine (Unverified Allergy, Unknown, SWELLING, 06/09/17) SON IS NOT AWARE OF THIS AND HE IS GEOSPATIAL SCIENTIST lactose (Unverified Allergy, Unknown, 06/09/17) potassium iodide (Unverified Allergy, Unknown, SWELLING, 06/09/17) SON IS NOT AWARE OF THIS AND HE IS GEOSPATIAL SCIENTIST povidone-iodine (Unverified Allergy, Unknown, SWELLING, 06/09/17) SON IS NOT AWARE OF THIS AND HE IS GEOSPATIAL SCIENTIST sodium iodide (Unverified Allergy, Unknown, SWELLING, 06/09/17) SON IS NOT AWARE OF THIS AND HE IS GEOSPATIAL SCIENTIST sodium iodide (Unverified Allergy, Unknown, SWELLING, 06/09/17) SON IS NOT AWARE OF THIS AND HE IS GEOSPATIAL SCIENTIST duloxetine (Unverified Adverse Reaction, Severe, STOMACH IRRITATION, ) Reported Meds & Prescriptions Reported Meds & Active Scripts Active Aspirin EC (Aspirin) 81 Mg Tabdr 81 Mg PO DAILY 30 Days Start after completing one month of aspirin 325mg daily. Aspirin 325 Mg Tab 325 Mg PO DAILY 30 Days after one Month, switch to 81 mg by mouth daily. Reported Lovastatin 20 Mg Tab 20 Mg PO DAILY Lisinopril 10 Mg Tab 10 Mg PO BID Bumetanide 2 Mg Tab 2 Mg PO SAT, SUN, TUES, THUR Review of Systems Except as stated in HPI: all other systems reviewed are Neg Physical Exam Narrative GENERAL: appear listless pale SKIN: Warm and dry. pallor HEAD: Atraumatic. Normocephalic. EYES: Pupils equal and round. No scleral icterus. No injection or drainage. ENT: No nasal bleeding or discharge. Mucous membranes pink and moist. NECK: Trachea midline. No JVD. CARDIOVASCULAR: Regular rate and rhythm. RESPIRATORY: No accessory muscle use. Clear to auscultation. Breath sounds equal bilaterally. GASTROINTESTINAL: Abdomen soft, non-tender, nondistended. Hepatic and splenic margins not palpable. MUSCULOSKELETAL: Extremities without clubbing, cyanosis, or edema. No obvious deformities. NEUROLOGICAL: Awake and alert. No obvious cranial nerve deficits. Data Data Last Documented VS Vital Signs Date Time Temp Pulse Resp B/P (MAP) Pulse Ox O2 Delivery O2 Flow Rate FiO2 01/29/18 00:02 95 Nasal Cannula 3.00 01/28/18 21:50 60 16 01/28/18 20:56 98.9 Orders Orders Complete Blood Count With Diff (01/28/18 21:39) Comprehensive Metabolic Panel (01/28/18 21:39) Ckmb (Isoenzyme) Profile (01/28/18 21:39) Troponin I (01/28/18 21:39) Lipase (01/28/18 21:39) Ua Includes Microscopic (01/28/18 21:39) Chest, Single Ap (01/28/18 21:39) Orthostatic Vital Signs (01/28/18 22:12) Electrocardiogram (01/28/18 ) Admit Order (Ed Use Only) (01/29/18 01:28) Labs Laboratory Tests Test 01/28/18 21:45 White Blood Count 5.9 TH/MM3 Red Blood Count 2.61 MIL/MM3 Hemoglobin 8.5 GM/DL Hematocrit 25.6 % Mean Corpuscular Volume 98.3 FL Mean Corpuscular Hemoglobin 32.4 PG Mean Corpuscular Hemoglobin Concent 33.0 % Red Cell Distribution Width 16.8 % Platelet Count 140 TH/MM3 Mean Platelet Volume 8.7 FL Neutrophils (%) (Auto) 74.4 % Lymphocytes (%) (Auto) 13.8 % Monocytes (%) (Auto) 9.6 % Eosinophils (%) (Auto) 1.8 % Basophils (%) (Auto) 0.4 % Neutrophils # (Auto) 4.4 TH/MM3 Lymphocytes # (Auto) 0.8 TH/MM3 Monocytes # (Auto) 0.6 TH/MM3 Eosinophils # (Auto) 0.1 TH/MM3 Basophils # (Auto) 0.0 TH/MM3 CBC Comment DIFF FINAL Differential Comment Blood Urea Nitrogen 49 MG/DL Creatinine 5.25 MG/DL Random Glucose 134 MG/DL Total Protein 7.2 GM/DL Albumin 3.4 GM/DL Calcium Level 7.9 MG/DL Alkaline Phosphatase 127 U/L Aspartate Amino Transf (AST/SGOT) 18 U/L Alanine Aminotransferase (ALT/SGPT) 20 U/L Total Bilirubin 0.5 MG/DL Sodium Level 136 MEQ/L Potassium Level 3.7 MEQ/L Chloride Level 97 MEQ/L Carbon Dioxide Level 29.1 MEQ/L Anion Gap 10 MEQ/L Estimat Glomerular Filtration Rate 11 ML/MIN Total Creatine Kinase 81 U/L Troponin I 0.04 NG/ML Lipase 157 U/L [facility] Medical Decision Making Medical Screen Exam Complete: Yes Emergency Medical Condition: Yes Differential Diagnosis anemia vs hypoxia vs UTI vs PNA vs other cause of weakness generalized Narrative Course pt has episodes of desaturation 85% at times on RA and mild anemia and pt needs admisson and possible return to SNF Diagnosis Primary Impression: Oxygen desaturation Additional Impressions: Weakness Anemia Qualified Codes: N18.6 - End stage renal disease; D63.1 - Anemia in chronic kidney disease; Z99.2 - Dependence on renal dialysis Admitting Information Admitting Physician Requests: Observation Sander Fischer MD Jan 29, 2018 00:10
[2018-01-29] MEDS ORDERED: ONDANSETRON HCL 4 MG/2 ML VIAL IVP PRN (02:00)
[2018-01-29] MEDS ORDERED: BISACODYL 10 MG SUPP RECTAL PRN (02:00)
[2018-01-29] MEDS ORDERED: MAGNESIUM HYDROXIDE SUSP 30 ML CUP PO PRN (02:00)
[2018-01-29] MEDS ORDERED: LACTULOSE SYRUP 20 GM/30 ML CUP PO PRN (02:00)
[2018-01-29] MEDS ORDERED: SENNOSIDES 8.6 MG TAB PO PRN (02:00)
[2018-01-29] MEDS ORDERED: SODIUM CHLORIDE 0.9% FLUSH 10 ML FLUSH IV FLUSH PRN ×2 (02:00→08:30)
[2018-01-29] MEDS ORDERED: NALOXONE HCL 0.4 MG/ML AMP IV PUSH PRN (02:00)
[2018-01-29 05:35] LABS: BILIRUBIN, URINE NEG (NEG); BLOOD, URINE NEG (NEG); GLUCOSE,URINE NEG (NEG); KETONE, URINE NEG (NEG); NITRITE,URINE NEG (NEG); SQUAMOUS EPITHELIAL CELL URINE 1 /hpf (0-5); URINE COLOR LIGHT-YELLOW (YELLW/STRAW); URINE LEUKOCYTE ESTERASE NEG (NEG)
[2018-01-29] MEDS: HEPARIN SODIUM - SQ 10,000 UNITS/ML VIAL SQ SCH ×3 (06:13→21:55)
[2018-01-29 07:18] LABS: AUTOMATED NEUTROPHIL # 3.7 TH/MM3 (1.8-7.7); BASOPHIL % 0.4 % (0.0-2.0); EOSINOPHIL # 0.1 TH/MM3 (0-0.4); HEMATOCRIT 24.1 % (39.0-51.0); LYMPHOCYTE # 0.8 TH/MM3 (1.0-4.8); MEAN CELL VOLUME 97.7 FL (80.0-100.0); MEAN CORPUSCULAR HEMOGLOBIN 32.6 PG (27.0-34.0); MEAN CORPUSCULAR HGB CONC 33.4 % (32.0-36.0); MEAN PLATELET VOLUME 8.4 FL (7.0-11.0); MONO % 11.2 % (0.0-8.0); MONOCYTE # 0.6 TH/MM3 (0-0.9); NEUT % 71.4 % (16.0-70.0); PLATELET COUNT 119 TH/MM3 (150-450); RED BLOOD COUNT 2.46 MIL/MM3 (4.50-5.90); RED CELL DISTRIBUTION WIDTH 16.7 % (11.6-17.2); WHITE BLOOD COUNT 5.2 TH/MM3 (4.0-11.0)
[2018-01-29 07:42] LABS: CALCIUM 7.7 MG/DL (8.5-10.1); CREATININE 5.56 MG/DL (0.60-1.30)
[2018-01-29] MEDS ORDERED: SODIUM CHLOR 0.9% 1000 ML INJ 1,000 ML IV PRN (08:26)
[2018-01-29] MEDS ORDERED: SODIUM CHLOR 0.9% 1000 ML INJ 1,000 ML OTHER PRN ×2 (08:26)
[2018-01-29] MEDS ORDERED: HEPARIN SODIUM - IV 10,000 UNITS/10 ML VIAL IV FLUSH PRN (08:30)
[2018-01-29] MEDS ORDERED: ACETAMINOPHEN 325 MG TAB PO PRN (08:30)
[2018-01-29] MEDS ORDERED: ALBUMIN 25% INJ 100 ML IV PRN (08:30)
[2018-01-29] MEDS ORDERED: GELATIN 12 MM/7 MM FOAM TOP PRN (08:30)
[2018-01-29] MEDS ORDERED: ONDANSETRON HCL 4 MG/2 ML VIAL IV PUSH PRN (08:30)
[2018-01-29] MEDS ORDERED: NITROGLYCERIN 0.4 MG SL 25 TABS/BTL SL PRN (08:30)
[2018-01-29] MEDS ORDERED: EPOETIN ALFA 10,000 UNITS/ML VIAL IV PUSH PRN (08:30)
[2018-01-29] MEDS ORDERED: MANNITOL 12.5 GM/50 ML VIAL IV PRN (08:30)
[2018-01-29] MEDS: DOCUSATE SODIUM 50 MG/SENNA 8.6 MG TAB PO SCH ×2 (10:09→20:17)
[2018-01-29] MEDS: SODIUM CHLORIDE 0.9% FLUSH 10 ML FLUSH IV FLUSH SCH ×2 (10:09→20:17)
--- NOTE | 2018-01-29 14:03 | PD.CONS ---
HPI Service Nephrology Consult Requested By Soledad Reason for Consult ESRD on HD Primary Care Physician Unknown History of Present Illness This is a 72 y/o male patient. He has PMH of HTN, DM II, chronic foot drop, diabetic neuropathy, and hx of bleeding behind right eye and detached retina on left. 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 H xof ESRD, he dialyzes in [place], follows with Dr. Zamora. He has been on HD since July 2016 (MWF), has immature AVF on left and uses Permcath on the right for treatment. The patient informs me he was recently discharged from [facility] where he was admitted for generalized weakness. No reports of infections from the patient but his reliability is questionable. From there he went to [facility], was discharged yesterday. The patient still felt weak therefore he was brought to this facility within 12 hrs of discharge as his family felt they could not care for him. He is awake, afebrile , not in distress. He has mobility issues at baseline, is seen during dialysis today. We were consulted for dialysis management. (Stacey Grace) Review of Systems Constitutional: COMPLAINS OF: Fatigue, DENIES: Change in appetite Gastrointestinal: DENIES: Abdominal pain Neurologic: DENIES: Localized weakness, Speech Problems (Stacey Grace) Past Family Social History Allergies: Coded Allergies: amoxicillin (Unverified Allergy, Severe, RASH, 06/09/17) clavulanic acid (Unverified Allergy, Severe, RASH, 06/09/17) codeine (Unverified Allergy, Severe, SWELLING, 06/09/17) penicillin G (Unverified Allergy, Severe, RASH, 06/09/17) prednisone (Unverified Allergy, Severe, RASH, 06/09/17) iodine (Unverified Allergy, Unknown, SWELLING, 06/09/17) SON IS NOT AWARE OF THIS AND HE IS CHIEF GAUGER lactose (Unverified Allergy, Unknown, 06/09/17) potassium iodide (Unverified Allergy, Unknown, SWELLING, 06/09/17) SON IS NOT AWARE OF THIS AND HE IS CHIEF GAUGER povidone-iodine (Unverified Allergy, Unknown, SWELLING, 06/09/17) SON IS NOT AWARE OF THIS AND HE IS CHIEF GAUGER sodium iodide (Unverified Allergy, Unknown, SWELLING, 06/09/17) SON IS NOT AWARE OF THIS AND HE IS CHIEF GAUGER sodium iodide (Unverified Allergy, Unknown, SWELLING, 06/09/17) SON IS NOT AWARE OF THIS AND HE IS CHIEF GAUGER duloxetine (Unverified Adverse Reaction, Severe, STOMACH IRRITATION, ) Past Medical History ESRD on HD MWF HTN Hyperlipidemia Congestive heart failure Pulmonary artery hypertension Guillain-Oakes syndrome x 3 Arthritis Seizure disorder Sleep apnea Depression Past Surgical History AVF left arm Cataracts Cholecystectomy Appendectomy Eye surgeries receives injections in right eye regularly Reported Medications Aspirin EC (Aspirin) 81 Mg Tabdr 81 Mg PO DAILY 30 Days Start after completing one month of aspirin 325mg daily. Aspirin 325 Mg Tab 325 Mg PO DAILY 30 Days after one Month, switch to 81 mg by mouth daily. Lovastatin 20 Mg Tab 20 Mg PO DAILY Lisinopril 10 Mg Tab 10 Mg PO BID Bumetanide 2 Mg Tab 2 Mg PO SAT, SUN, TUES, THUR Active Ordered Medications Current Medications Medications (Trade) Dose Ordered Sig/Sam Route Start Time Stop Time Status Last Admin (NS Flush) 2 ml UNSCH PRN IV FLUSH 01/29/18 02:00 (NS Flush) 2 ml BID IV FLUSH 01/29/18 09:00 01/29/18 10:09 (Tylenol) 650 mg Q4H PRN PO 01/29/18 02:00 (Zofran Inj) 4 mg Q6H PRN IVP 01/29/18 02:00 (Heparin Inj) 5,000 units Q8H SQ 01/29/18 06:00 01/29/18 06:13 (Narcan Inj) 0.4 mg UNSCH PRN IV PUSH 01/29/18 02:00 (Angelica-Colace) 1 tab BID PO 01/29/18 09:00 01/29/18 10:09 (Milk Of Magnesia Liq) 30 ml Q12H PRN PO 01/29/18 02:00 (Senokot) 17.2 mg Q12H PRN PO 01/29/18 02:00 (Dulcolax Supp) 10 mg DAILY PRN RECTAL 01/29/18 02:00 (Lactulose Liq) 30 ml DAILY PRN PO 01/29/18 02:00 Sodium Chloride 1,000 ml @ 0 mls/hr Q0M PRN OTHER 01/29/18 08:26 (Heparin Inj) 8,000 units UNSCH PRN IV FLUSH 01/29/18 08:30 Sodium Chloride 1,000 ml @ 200 mls/hr Q5H PRN IV 01/29/18 08:26 Sodium Chloride 1,000 ml @ 0 mls/hr Q0M PRN OTHER 01/29/18 08:26 (Mannitol Inj) 12.5 gm UNSCH PRN IV 01/29/18 08:30 Albumin Human 100 ml @ 60 mls/hr UNSCH PRN IV 01/29/18 08:30 (NS Flush) 5 ml UNSCH PRN IV FLUSH 01/29/18 08:30 (Heparin Inj) UNSCH PRN .XX 01/29/18 08:30 (Gentamicin Inj) 20 mg UNSCH PRN OTHER 01/29/18 08:30 (Zofran Inj) 4 mg UNSCH PRN IV PUSH 01/29/18 08:30 (Tylenol) 650 mg UNSCH PRN PO 01/29/18 08:30 (Benadryl) 25 mg UNSCH PRN PO 01/29/18 08:30 (Nitrostat Sl) 0.4 mg UNSCH PRN SL 01/29/18 08:30 (Catapres) 0.1 mg UNSCH PRN PO 01/29/18 08:30 (Epogen Inj) 10,000 units UNSCH PRN IV PUSH 01/29/18 08:30 (Gelfoam 12 Mm/7 Mm Top) 1 foam UNSCH PRN TOP 01/29/18 08:30 Family History Non contributory Social History 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 [facility] in [facility] Full code (Stacey Grace) Physical Exam Vital Signs Vital Signs Date Time Temp Pulse Resp B/P (MAP) Pulse Ox O2 Delivery O2 Flow Rate FiO2 01/29/18 09:33 96 Nasal Cannula 3.00 01/29/18 08:00 98.0 61 18 148/64 (92) 98 01/29/18 04:00 98.1 64 18 150/69 (96) 95 01/29/18 03:26 97 Nasal Cannula 3.00 01/29/18 02:45 01/29/18 01:42 60 14 179/70 (106) 97 Nasal Cannula 3.00 01/29/18 00:02 95 Nasal Cannula 3.00 01/29/18 00:00 85 Room Air 01/28/18 21:50 60 16 179/72 (107) 92 01/28/18 20:56 98.9 50 16 130/60 (83) 96 Physical Exam Elderly male awake, alert/oriented x 3 S1/S2, RRR no murmurs or ectopy lungs clear, no wheezing abdomen soft, non tender extremities; no edema, braces on bilateral lower extremities AVF LUE + thrill/bruit Permcath right chest Laboratory Laboratory Tests Test 01/28/18 21:45 01/29/18 05:15 01/29/18 05:54 White Blood Count 5.9 5.2 Red Blood Count 2.61 2.46 Hemoglobin 8.5 8.0 Hematocrit 25.6 24.1 Mean Corpuscular Volume 98.3 97.7 Mean Corpuscular Hemoglobin 32.4 32.6 Mean Corpuscular Hemoglobin Concent 33.0 33.4 Red Cell Distribution Width 16.8 16.7 Platelet Count 140 119 Mean Platelet Volume 8.7 8.4 Neutrophils (%) (Auto) 74.4 71.4 Lymphocytes (%) (Auto) 13.8 15.0 Monocytes (%) (Auto) 9.6 11.2 Eosinophils (%) (Auto) 1.8 2.0 Basophils (%) (Auto) 0.4 0.4 Neutrophils # (Auto) 4.4 3.7 Lymphocytes # (Auto) 0.8 0.8 Monocytes # (Auto) 0.6 0.6 Eosinophils # (Auto) 0.1 0.1 Basophils # (Auto) 0.0 0.0 CBC Comment DIFF FINAL DIFF FINAL Differential Comment Blood Urea Nitrogen 49 56 Creatinine 5.25 5.56 Random Glucose 134 102 Total Protein 7.2 Albumin 3.4 Calcium Level 7.9 7.7 Alkaline Phosphatase 127 Aspartate Amino Transf (AST/SGOT) 18 Alanine Aminotransferase (ALT/SGPT) 20 Total Bilirubin 0.5 Sodium Level 136 137 Potassium Level 3.7 3.8 Chloride Level 97 98 Carbon Dioxide Level 29.1 30.0 Anion Gap 10 9 Estimat Glomerular Filtration Rate 11 10 Total Creatine Kinase 81 Troponin I 0.04 Lipase 157 Urine Color LIGHT-YELLOW Urine Turbidity CLEAR Urine pH 6.0 Urine Specific [place] 1.006 Urine Protein NEG Urine Glucose (UA) NEG Urine Ketones NEG Urine Occult Blood NEG Urine Nitrite NEG Urine Bilirubin NEG Urine Urobilinogen LESS THAN 2.0 Urine Leukocyte Esterase NEG Urine RBC LESS THAN 1 Urine WBC LESS THAN 1 Urine Squamous Epithelial Cells 1 (Stacey Grace) Result Diagram: 01/29/18 0554 01/29/18 0554 Imaging Last 72 hours Impressions Chest X-Ray 01/28/182138 Signed Impressions: Service Date/Time: January 21:50 - CONCLUSION: Dual-lumen right central catheter tip in right atrium. Minimal basilar airspace disease. Trace pleural fluid. Cardiomegaly. Alonso Tam MD (Stacey Grace) Assessment and Plan Problem List: (1) ESRD (end stage renal disease) ICD Codes: N18.6 - End stage renal disease Status: Acute Plan: We will continue dialytic support MWF while admitted Normally follows with Dr. zamora in [facility] for outpatient HD Seen during dialysis today on a 3K, 340 BFR, goal 3L Using permcath on right, AVF is patent but not ready for use Intermittently monitor labs, obtain phosphorus level as he is not on phosphorus binders Avoid IVF administration (2) Weakness ICD Codes: R53.1 - Weakness Status: Chronic Plan: Recent discharge from [facility] for same He also had inpatient rehab Needs PT/OT, he is deconditioned Needs motivation (3) Diabetes ICD Codes: E11.9 - Diabetes Status: Chronic Plan: Maintain glucose 140-180 mg/dL while hospitalized (4) Anemia ICD Codes: D64.9 - Anemia, unspecified Status: Acute Plan: Epogen with dialysis has been ordered Check iron profile in AM (Stacey Grace) Assessment and Plan patient was seen and examined. Agree with above assessment and plan. Seen during dialysis. Patient has been admitted with lower extremity weakness which appears to be chronic. He is frustrated about lack of improvement. (Sanju Cameron MD) Stacey Grace Jan 29, 2018 14:02 Sanju Cameron MD Jan 29, 2018 15:12
--- NOTE | 2018-01-29 16:13 | EKG ---
Date Performed: 01/29/2018 Time Performed: 00:13:15 PTAGE: 72 years EKG: ELECTRONIC VENTRICULAR PACEMAKER ABNORMAL RHYTHM ECG PREVIOUS TRACING : 01/29/2018 00.09 Compared to previous tracing, ventricular pacing is now george dent. DOCTOR: Junior Golden Interpretating Date/Time 01/29/2018 16:11:19
[2018-01-29] MEDS: HEPARIN SODIUM - IV 10,000 UNITS/10 ML VIAL PRN (16:46)
[2018-01-29] MEDS: GENTAMICIN SULFATE 20 MG/2 ML VIAL OTHER PRN (16:47)
--- NOTE | 2018-01-29 18:30 | HHI.HP ---
[facility] Unknown Admission Diagnosis hypoxia , anemia, SOB Diagnoses: Chief Complaint: Generalized weakness. Travel History International Travel<30 Days: No Contact w/Intl Traveler <30 Da: No Traveled to Known Affected Are: No History of Present Illness The patient is a 71-year-old male with history of diabetes, hypertension, peripheral neuropathy who was recently discharged from skilled nursing to home. Family came in upset feeling he is not stable enough to go home. The patient is a poor historian so most of this history is obtained from medical records. As per ED medical records the patient had been home for about 12 hours and he was feeling weak, dizzy and had generalized malaise. They called the insurance company who said that they have been discharge due to insurance issues and that he needed to return to the ER. Patient was complaining of shortness of breath, dizziness, weakness. At the moment of my interview the patient still complains of weakness, however denies chest pain, shortness of breath, nausea, vomiting, diarrhea, fevers, chills, dysuria. Review of Systems As per HPI, other systems reviewed by me and negative. Past Family Social History Past Medical History Depression Hyperlipidemia Congestive heart failure Pulmonary artery hypertension Guillain-Oakes syndrome Arthritis Seizure disorder Sleep apnea Past Surgical History Cataracts Cholecystectomy Appendectomy Eye surgeries Reported Medications Reported Meds & Active Scripts Active Aspirin EC (Aspirin) 81 Mg Tabdr 81 Mg PO DAILY 30 Days Start after completing one month of aspirin 325mg daily. Aspirin 325 Mg Tab 325 Mg PO DAILY 30 Days after one Month, switch to 81 mg by mouth daily. 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 lactose (Unverified Allergy, Unknown, 06/09/17) potassium iodide (Unverified Allergy, Unknown, SWELLING, 06/09/17) SON IS NOT AWARE OF THIS AND 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 povidone-iodine (Unverified Allergy, Unknown, SWELLING, 06/09/17) SON IS NOT AWARE OF THIS AND 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 sodium iodide (Unverified Allergy, Unknown, SWELLING, 06/09/17) SON IS NOT AWARE OF 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 AND 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 sodium iodide (Unverified Allergy, Unknown, SWELLING, 06/09/17) SON IS NOT AWARE OF THIS AND 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 duloxetine (Unverified Adverse Reaction, Severe, STOMACH IRRITATION, ) Active Ordered Medications Current Medications Medications (Trade) Dose Ordered Sig/Sam Route Start Time Stop Time Status Last Admin (NS Flush) 2 ml UNSCH PRN IV FLUSH 01/29/18 02:00 (NS Flush) 2 ml BID IV FLUSH 01/29/18 09:00 01/29/18 10:09 (Tylenol) 650 mg Q4H PRN PO 01/29/18 02:00 (Zofran Inj) 4 mg Q6H PRN IVP 01/29/18 02:00 (Heparin Inj) 5,000 units Q8H SQ 01/29/18 06:00 01/29/18 06:13 (Narcan Inj) 0.4 mg UNSCH PRN IV PUSH 01/29/18 02:00 (Angelica-Colace) 1 tab BID PO 01/29/18 09:00 01/29/18 10:09 (Milk Of Magnesia Liq) 30 ml Q12H PRN PO 01/29/18 02:00 (Senokot) 17.2 mg Q12H PRN PO 01/29/18 02:00 (Dulcolax Supp) 10 mg DAILY PRN RECTAL 01/29/18 02:00 (Lactulose Liq) 30 ml DAILY PRN PO 01/29/18 02:00 Sodium Chloride 1,000 ml @ 0 mls/hr Q0M PRN OTHER 4/6/18 08:26 (Heparin Inj) 8,000 units UNSCH PRN IV FLUSH 01/29/18 08:30 Sodium Chloride 1,000 ml @ 200 mls/hr Q5H PRN IV 01/29/18 08:26 Sodium Chloride 1,000 ml @ 0 mls/hr Q0M PRN OTHER 01/29/18 08:26 (Mannitol Inj) 12.5 gm UNSCH PRN IV 01/29/18 08:30 Albumin Human 100 ml @ 60 mls/hr UNSCH PRN IV 01/29/18 08:30 (NS Flush) 5 ml UNSCH PRN IV FLUSH 01/29/18 08:30 (Heparin Inj) UNSCH PRN .XX 01/29/18 08:30 01/29/18 16:46 (Gentamicin Inj) 20 mg UNSCH PRN OTHER 01/29/18 08:30 01/29/18 16:47 (Zofran Inj) 4 mg UNSCH PRN IV PUSH 01/29/18 08:30 (Tylenol) 650 mg UNSCH PRN PO 01/29/18 08:30 (Benadryl) 25 mg UNSCH PRN PO 01/29/18 08:30 (Nitrostat Sl) 0.4 mg UNSCH PRN SL 01/29/18 08:30 (Catapres) 0.1 mg UNSCH PRN PO 01/29/18 08:30 (Epogen Inj) 10,000 units UNSCH PRN IV PUSH 01/29/18 08:30 01/29/18 16:47 (Gelfoam 12 Mm/7 Mm Top) 1 foam UNSCH PRN TOP 01/29/18 08:30 Family History Family history of hypertension Social History denies alcohol or tobacco dependency, lives with his family Physical Exam Vital Signs Vital Signs Date Time Temp Pulse Resp B/P (MAP) Pulse Ox O2 Delivery O2 Flow Rate FiO2 01/29/18 17:35 96 Nasal Cannula 3.00 01/29/18 12:00 98.2 60 18 133/64 (87) 96 01/29/18 09:33 96 Nasal Cannula 3.00 01/29/18 08:00 98.0 61 18 148/64 (92) 98 01/29/18 04:00 98.1 64 18 150/69 (96) 95 4/6/18 03:26 97 Nasal Cannula 3.00 01/29/18 02:45 01/29/18 01:42 60 14 179/70 (106) 97 Nasal Cannula 3.00 01/29/18 00:02 95 Nasal Cannula 3.00 01/29/18 00:00 85 Room Air 01/28/18 21:50 60 16 179/72 (107) 92 01/28/18 20:56 98.9 50 16 130/60 (83) 96 Physical Exam Elderly male awake, alert/oriented x 3 S1/S2, RRR no murmurs or ectopy lungs clear, no wheezing, no rales auscultation abdomen soft, non tender, nondistended, bowel sounds present extremities; no edema, braces on bilateral lower extremities, present pedal pulses. AVF LUE + thrill/bruit Permcath right chest Laboratory Laboratory Tests Test 01/28/18 21:45 01/29/18 05:15 01/29/18 05:54 White Blood Count 5.9 5.2 Red Blood Count 2.61 2.46 Hemoglobin 8.5 8.0 Hematocrit 25.6 24.1 Mean Corpuscular Volume 98.3 97.7 Mean Corpuscular Hemoglobin 32.4 32.6 Mean Corpuscular Hemoglobin Concent 33.0 33.4 Red Cell Distribution Width 16.8 16.7 Platelet Count 140 119 Mean Platelet Volume 8.7 8.4 Neutrophils (%) (Auto) 74.4 71.4 Lymphocytes (%) (Auto) 13.8 15.0 Monocytes (%) (Auto) 9.6 11.2 Eosinophils (%) (Auto) 1.8 2.0 Basophils (%) (Auto) 0.4 0.4 Neutrophils # (Auto) 4.4 3.7 Lymphocytes # (Auto) 0.8 0.8 Monocytes # (Auto) 0.6 0.6 Eosinophils # (Auto) 0.1 0.1 Basophils # (Auto) 0.0 0.0 CBC Comment DIFF FINAL DIFF FINAL Differential Comment Blood Urea Nitrogen 49 56 Creatinine 5.25 5.56 Random Glucose 134 102 Total Protein 7.2 Albumin 3.4 Calcium Level 7.9 7.7 Alkaline Phosphatase 127 Aspartate Amino Transf (AST/SGOT) 18 Alanine Aminotransferase (ALT/SGPT) 20 Total Bilirubin 0.5 Sodium Level 136 137 Potassium Level 3.7 3.8 Chloride Level 97 98 Carbon Dioxide Level 29.1 30.0 Anion Gap 10 9 Estimat Glomerular Filtration Rate 11 10 Total Creatine Kinase 81 Troponin I 0.04 Lipase 157 Urine Color LIGHT-YELLOW Urine Turbidity CLEAR Urine pH 6.0 Urine Specific [place] 1.006 Urine Protein NEG Urine Glucose (UA) NEG Urine Ketones NEG Urine Occult Blood NEG Urine Nitrite NEG Urine Bilirubin NEG Urine Urobilinogen LESS THAN 2.0 Urine Leukocyte Esterase NEG Urine RBC LESS THAN 1 Urine WBC LESS THAN 1 Urine Squamous Epithelial Cells 1 Result Diagram: 01/29/18 0554 01/29/18 0554 Imaging Last Impressions Chest X-Ray 01/28/182138 Signed Impressions: Service Date/Time: January 21:50 - CONCLUSION: Dual-lumen right central catheter tip in right atrium. Minimal basilar airspace disease. Trace pleural fluid. Cardiomegaly. MD David Carmen VTE Risk Assessment Caprini VTE Risk Assessment: Mod/High Risk (score >= 2) Caprini Risk Assessment Model Point Value = 1 Point Value = 2 Point Value = 3 Point Value = 5 Age 41-60 Minor surgery BMI > 25 kg/m2 Swollen legs Varicose veins or History of unexplained or recurrent spontaneous Oral contraceptives or hormone replacement Sepsis (< 1 month) Serious lung disease, including pneumonia (< 1 month) Abnormal pulmonary function Acute myocardial infarction Congestive heart failure (< 1 month) History of inflammatory bowel disease Medical patient at bed rest Age 61-74 Arthroscopic surgery Major open surgery (> 45 min) Laparoscopic surgery (> 45 min) Malignancy Confined to bed (> 72 hours) Immobilizing plaster cast Central venous access Age >= 75 History of VTE Family history of VTE Factor V Leiden Prothrombin [id number] Lupus anticoagulant Anticardiolipin antibodies Elevated serum homocysteine Heparin-induced thrombocytopenia Other congenital or acquired thrombophilia Stroke (< 1 month) Elective arthroplasty Hip, pelvis, or leg fracture Acute spinal cord injury (< 1 month) Prophylaxis Regimen Total Risk Factor Score Risk Level Prophylaxis Regimen 0-1 Low Early ambulation 2 Moderate Order ONE of the following: *Sequential Compression Device (SCD) *Heparin 5000 units SQ BID 3-4 Higher Order ONE of the following medications: *Heparin 5000 units SQ TID *Enoxaparin/Lovenox 40 mg SQ daily (WT < 150 kg, CrCl > 30 mL/min) *Enoxaparin/Lovenox 30 mg SQ daily (WT < 150 kg, CrCl > 10-29 mL/min) *Enoxaparin/Lovenox 30 mg SQ BID (WT < 150 kg, CrCl > 30 mL/min) AND/OR *Sequential Compression Device (SCD) 5 or more Highest Order ONE of the following medications: *Heparin 5000 units SQ TID (Preferred with Epidurals) *Enoxaparin/Lovenox 40 mg SQ daily (WT < 150 kg, CrCl > 30 mL/min) *Enoxaparin/Lovenox 30 mg SQ daily (WT < 150 kg, CrCl > 10-29 mL/min) *Enoxaparin/Lovenox 30 mg SQ BID (WT < 150 kg, CrCl > 30 mL/min) AND *Sequential Compression Device (SCD) Assessment and Plan Problem List: (1) Weakness ICD Code: R53.1 - Weakness Status: Chronic Plan: The patient has been recently discharged from skilled nursing, patient also had inpatient rehab. Unclear etiology no clear signs of infection. UA negative. Chest x-ray reviewed by me shows minimal basilar airspace disease and trace pleural fluid. Consult PT/OT. Neurology consulted. Will check aldolase. (2) ESRD (end stage renal disease) ICD Code: N18.6 - End stage renal disease Status: Acute Plan: Neurology consulted. Patient on hemodialysis support MWF was admitted. Permacath on right, aVF is patent but not ready for use. Monitor BMP and follow phosphorus. Avoid IV fluid administration. (3) Diabetes ICD Code: E11.9 - Diabetes Status: Chronic Plan: Placed on SSI and monitor Accu-Cheks Blood sugar seems to be stable. (4) Anemia ICD Code: D64.9 - Anemia, unspecified Status: Acute Plan: Likely secondary to end-stage renal disease. Epogen with dialysis as per nephrology. Follow-up iron profile in a.m. Assessment and Plan DVT prophylaxis: DVT reflexes, heparin subcutaneous. Code Status Full code Discussed Condition With Patient, RN Problem Qualifiers (1) Diabetes: Qualified Codes: E11.9 - Type 2 diabetes mellitus without complications (2) Anemia: Qualified Codes: N18.6 - End stage renal disease; D63.1 - Anemia in chronic kidney disease; Z99.2 - Dependence on renal dialysis Presley Ramos MD Jan 29, 2018 18:30
[2018-01-30] VITALS: BP 150/66; PULSE 67; RESP 18; TEMP 99.9; O2SAT 98
[2018-01-30 04:00] VITALS: BP 159/65; PULSE 64; RESP 18; TEMP 97.9; O2SAT 95
[2018-01-30] MEDS: HEPARIN SODIUM - SQ 10,000 UNITS/ML VIAL SQ SCH ×3 (06:37→22:01)
[2018-01-30] MEDS: ACETAMINOPHEN 325 MG TAB PO PRN (06:45)
[2018-01-30 08:00] VITALS: BP 151/72; PULSE 59; RESP 16; TEMP 98; O2SAT 96
[2018-01-30 08:02] LABS: AUTOMATED NEUTROPHIL # 4.2 TH/MM3 (1.8-7.7); BASOPHIL % 0.4 % (0.0-2.0); EOSINOPHIL # 0.1 TH/MM3 (0-0.4); EOSINOPHIL % 1.9 % (0.0-4.0); HEMATOCRIT 25.5 % (39.0-51.0); HEMOGLOBIN 8.6 GM/DL (13.0-17.0); LYMPH % 13.7 % (9.0-44.0); LYMPHOCYTE # 0.8 TH/MM3 (1.0-4.8); MEAN CELL VOLUME 97.2 FL (80.0-100.0); MEAN CORPUSCULAR HEMOGLOBIN 32.9 PG (27.0-34.0); MEAN CORPUSCULAR HGB CONC 33.9 % (32.0-36.0); MEAN PLATELET VOLUME 8.3 FL (7.0-11.0); MONO % 10.5 % (0.0-8.0); MONOCYTE # 0.6 TH/MM3 (0-0.9); NEUT % 73.5 % (16.0-70.0); PLATELET COUNT 123 TH/MM3 (150-450); RED BLOOD COUNT 2.63 MIL/MM3 (4.50-5.90); RED CELL DISTRIBUTION WIDTH 16.8 % (11.6-17.2); WHITE BLOOD COUNT 5.7 TH/MM3 (4.0-11.0)
[2018-01-30 08:36] LABS: BICARBONATE 33.1 MEQ/L (21.0-32.0); BLOOD UREA NITROGEN 37 MG/DL (7-18); CALCIUM 8.1 MG/DL (8.5-10.1); CHLORIDE 95 MEQ/L (98-107); CREATININE 4.41 MG/DL (0.60-1.30); GLOMERULAR FILTRATION RATE 13 ML/MIN (>89); GLUCOSE,RANDOM 86 MG/DL (74-106); IRON (FE) 47 MCG/DL (65-175); PHOSPHORUS 2.4 MG/DL (2.5-4.9); SODIUM (NA) 135 MEQ/L (136-145); TOTAL IRON BINDING CAPACITY 336 MCG/DL (250-450)
--- NOTE | 2018-01-30 09:04 | HHI.PR ---
Subjective Remarks The patient is a 71-year-old male with history of diabetes, hypertension, peripheral neuropathy who was recently discharged from alf to home. Family came in upset feeling he is not stable enough to go home. The patient is a poor historian so most of this history is obtained from medical records. As per ED medical records the patient had been home for about 12 hours and he was feeling weak, dizzy and had generalized malaise. They called the insurance company who said that they have been discharge due to insurance issues and that he needed to return to the ER. Patient was complaining of shortness of breath, dizziness, weakness. At the moment of my interview the patient still complains of weakness, however denies chest pain, shortness of breath, nausea, vomiting, diarrhea, fevers, chills, dysuria. 01/30: Seen in his bedroom, no nausea, vomit or diarrhea, awaiting for PT and OT for discharge if okay with Nephrology. Objective Vital Signs Date Time Temp Pulse Resp B/P (MAP) Pulse Ox O2 Delivery O2 Flow Rate FiO2 01/30/18 04:00 97.9 64 18 159/65 (96) 95 01/30/18 00:00 99.9 67 18 150/66 (94) 98 01/29/18 20:00 98.2 73 18 171/75 (107) 99 01/29/18 17:35 96 Nasal Cannula 3.00 01/29/18 12:00 98.2 60 18 133/64 (87) 96 01/29/18 09:33 96 Nasal Cannula 3.00 I/O 01/29/18 01/29/18 01/29/18 01/30/18 01/30/18 01/30/18 07:00 15:00 23:00 07:00 15:00 23:00 Intake Total 120 ml 240 ml 240 ml Output Total 3150 ml 200 ml Balance 120 ml -2910 ml 40 ml Intake Oral 120 ml 240 ml 240 ml Output Urine Total 150 ml 200 ml Hemodialysis 3000 ml # Voids 1 3 # Bowel Movements 0 1 1 0 Result Diagram: 01/30/18 0658 01/30/18 0658 Imaging Last Impressions Chest X-Ray 01/28/18 6365 Signed Impressions: Service Date/Time: January 21:50 - CONCLUSION: Dual-lumen right central catheter tip in right atrium. Minimal basilar airspace disease. Trace pleural fluid. Cardiomegaly. Alonso Tam MD Procedures None Other Results Laboratory Tests Test 01/28/18 21:45 01/29/18 05:15 01/30/18 06:58 Blood Urea Nitrogen 49 MG/DL 37 MG/DL Creatinine 5.25 MG/DL 4.41 MG/DL Random Glucose 134 MG/DL 86 MG/DL Total Protein 7.2 GM/DL Albumin 3.4 GM/DL Calcium Level 7.9 MG/DL 8.1 MG/DL Alkaline Phosphatase 127 U/L Aspartate Amino Transf (AST/SGOT) 18 U/L Alanine Aminotransferase (ALT/SGPT) 20 U/L Total Bilirubin 0.5 MG/DL Sodium Level 136 MEQ/L 135 MEQ/L Potassium Level 3.7 MEQ/L 4.1 MEQ/L Chloride Level 97 MEQ/L 95 MEQ/L Carbon Dioxide Level 29.1 MEQ/L 33.1 MEQ/L Total Creatine Kinase 81 U/L Troponin I 0.04 NG/ML Lipase 157 U/L Urine Color LIGHT-YELLOW Urine Turbidity CLEAR Urine pH 6.0 Urine Specific [place] 1.006 Urine Protein NEG mg/dL Urine Glucose (UA) NEG mg/dL Urine Ketones NEG mg/dL Urine Occult Blood NEG Urine Nitrite NEG Urine Bilirubin NEG Urine Urobilinogen LESS THAN 2.0 MG/DL Urine Leukocyte Esterase NEG Urine RBC LESS THAN 1 /hpf Urine WBC LESS THAN 1 /hpf Urine Squamous Epithelial Cells 1 /hpf White Blood Count 5.7 TH/MM3 Red Blood Count 2.63 MIL/MM3 Hemoglobin 8.6 GM/DL Hematocrit 25.5 % Mean Corpuscular Volume 97.2 FL Mean Corpuscular Hemoglobin 32.9 PG Mean Corpuscular Hemoglobin Concent 33.9 % Red Cell Distribution Width 16.8 % Platelet Count 123 TH/MM3 Mean Platelet Volume 8.3 FL Neutrophils (%) (Auto) 73.5 % Lymphocytes (%) (Auto) 13.7 % Monocytes (%) (Auto) 10.5 % Eosinophils (%) (Auto) 1.9 % Basophils (%) (Auto) 0.4 % Neutrophils # (Auto) 4.2 TH/MM3 Lymphocytes # (Auto) 0.8 TH/MM3 Monocytes # (Auto) 0.6 TH/MM3 Eosinophils # (Auto) 0.1 TH/MM3 Basophils # (Auto) 0.0 TH/MM3 CBC Comment DIFF FINAL Differential Comment Phosphorus Level 2.4 MG/DL Anion Gap 7 MEQ/L Estimat Glomerular Filtration Rate 13 ML/MIN Iron Level 47 MCG/DL Total Iron Binding Capacity 336 MCG/DL Percent Iron Saturation 14.0 % Objective Remarks Elderly male awake, alert/oriented x 3 S1/S2, RRR no murmurs or ectopy lungs clear, no wheezing, no rales auscultation abdomen soft, non tender, nondistended, bowel sounds present extremities; no edema, braces on bilateral lower extremities, present pedal pulses. AVF LUE + thrill/bruit Permcath right chest Medications and IVs Current Medications Medications (Trade) Dose Ordered Sig/Sam Route Start Time Stop Time Status Last Admin (NS Flush) 2 ml UNSCH PRN IV FLUSH 01/29/18 02:00 (NS Flush) 2 ml BID IV FLUSH 01/29/18 09:00 01/29/18 20:17 (Tylenol) 650 mg Q4H PRN PO 01/29/18 02:00 01/30/18 06:45 (Zofran Inj) 4 mg Q6H PRN IVP 01/29/18 02:00 (Heparin Inj) 5,000 units Q8H SQ 01/29/18 06:00 01/30/18 06:37 (Narcan Inj) 0.4 mg UNSCH PRN IV PUSH 01/29/18 02:00 (Angelica-Colace) 1 tab BID PO 01/29/18 09:00 01/29/18 10:09 (Milk Of Magnesia Liq) 30 ml Q12H PRN PO 01/29/18 02:00 (Senokot) 17.2 mg Q12H PRN PO 01/29/18 02:00 (Dulcolax Supp) 10 mg DAILY PRN RECTAL 01/29/18 02:00 (Lactulose Liq) 30 ml DAILY PRN PO 01/29/18 02:00 Sodium Chloride 1,000 ml @ 0 mls/hr Q0M PRN OTHER 01/29/18 08:26 (Heparin Inj) 8,000 units UNSCH PRN IV FLUSH 01/29/18 08:30 Sodium Chloride 1,000 ml @ 200 mls/hr Q5H PRN IV 01/29/18 08:26 Sodium Chloride 1,000 ml @ 0 mls/hr Q0M PRN OTHER 01/29/18 08:26 (Mannitol Inj) 12.5 gm UNSCH PRN IV 01/29/18 08:30 Albumin Human 100 ml @ 60 mls/hr UNSCH PRN IV 01/29/18 08:30 (NS Flush) 5 ml UNSCH PRN IV FLUSH 01/29/18 08:30 (Heparin Inj) UNSCH PRN .XX 01/29/18 08:30 01/29/18 16:46 (Gentamicin Inj) 20 mg UNSCH PRN OTHER 01/29/18 08:30 01/29/18 16:47 (Zofran Inj) 4 mg UNSCH PRN IV PUSH 01/29/18 08:30 (Tylenol) 650 mg UNSCH PRN PO 01/29/18 08:30 01/29/18 20:10 (Benadryl) 25 mg UNSCH PRN PO 01/29/18 08:30 (Nitrostat Sl) 0.4 mg UNSCH PRN SL 01/29/18 08:30 (Catapres) 0.1 mg UNSCH PRN PO 01/29/18 08:30 (Epogen Inj) 10,000 units UNSCH PRN IV PUSH 01/29/18 08:30 01/29/18 16:47 (Gelfoam 12 Mm/7 Mm Top) 1 foam UNSCH PRN TOP 01/29/18 08:30 A/P Assessment and Plan (1) Weakness ICD Code: R53.1 - Weakness Status: Chronic Plan: The patient has been recently discharged from alf, patient also had inpatient rehab. Unclear etiology no clear signs of infection. UA negative. Chest x-ray reviewed by me shows minimal basilar airspace disease and trace pleural fluid. Consult PT/OT. recommended for Inpatient Rehab. (2) ESRD (end stage renal disease) ICD Code: N18.6 - End stage renal disease Status: Acute Plan: Nephrology consulted. Patient on hemodialysis support MWF was admitted. Permacath on right, aVF is patent but not ready for use. Monitor BMP and follow phosphorus. Avoid IV fluid administration. (3) Diabetes ICD Code: E11.9 - Diabetes Status: Chronic Plan: Placed on SSI and monitor Accu-Cheks Blood sugar seems to be stable. (4) Anemia ICD Code: D64.9 - Anemia, unspecified Status: Acute Plan: Likely secondary to end-stage renal disease. Epogen with dialysis as per nephrology. Follow-up iron profile in a.m. Assessment and Plan DVT prophylaxis: DVT reflexes, heparin subcutaneous. Code Status Full code Discussed Condition With Discharge Planning Discharge to SNF in one to two days. Hilario Nelson MD Jan 30, 2018 09:04
[2018-01-30] MEDS: SODIUM CHLORIDE 0.9% FLUSH 10 ML FLUSH IV FLUSH SCH ×2 (10:16→22:01)
[2018-01-30] MEDS: DOCUSATE SODIUM 50 MG/SENNA 8.6 MG TAB PO SCH ×2 (10:16→21:00)
[2018-01-30 12:00] VITALS: BP 172/72; PULSE 65; RESP 16; TEMP 98; O2SAT 99
[2018-01-30 16:00] VITALS: BP 160/72; PULSE 62; RESP 16; TEMP 98; O2SAT 99
--- NOTE | 2018-01-30 17:09 | HHI.NPPN ---
Objective Data Data Vital Signs Date Time Temp Pulse Resp B/P (MAP) Pulse Ox O2 Delivery O2 Flow Rate FiO2 01/30/18 12:00 98.0 65 16 172/72 (105) 99 01/30/18 08:00 98.0 59 16 151/72 (98) 96 01/30/18 04:00 97.9 64 18 159/65 (96) 95 01/30/18 00:00 99.9 67 18 150/66 (94) 98 01/29/18 20:00 98.2 73 18 171/75 (107) 99 01/29/18 17:35 96 Nasal Cannula 3.00 -: 01/30/18 0658 01/30/18 0658 Physical Exam General Appearance: Well Developed, Well Nourished Neck Neck Exam: Neck Supple Pulmonary Resp Exam: Decreased Bases Cardiology CV Exam: Regular Gastrointestinal/Abdomen GI Exam: Soft Extremeties Extremities Exam: Trace Edema Assessment/Plan Problem List: (1) ESRD (end stage renal disease) ICD Codes: N18.6 - End stage renal disease Status: Acute Plan: We will continue dialytic support MWF while admitted Normally follows with Dr. soto in [facility] for outpatient HD HD yesterday UF3L Using Permcath on right, AVF is patent but not ready for use Intermittently monitor labs, obtain phosphorus level as he is not on phosphorus binders Avoid IVF administration (2) Weakness ICD Codes: R53.1 - Weakness Status: Chronic Plan: Recent discharge from [facility] for same He also had inpatient rehab Needs PT/OT, he is deconditioned Needs motivation (3) Diabetes ICD Codes: E11.9 - Diabetes Status: Chronic Plan: Maintain glucose 140-180 mg/dL while hospitalized (4) Anemia ICD Codes: D64.9 - Anemia, unspecified Status: Acute Plan: Epogen with dialysis has been ordered Check iron profile in AM Problem Qualifiers (1) Diabetes: Qualified Codes: E11.9 - Type 2 diabetes mellitus without complications (2) Anemia: Qualified Codes: N18.6 - End stage renal disease; D63.1 - Anemia in chronic kidney disease; Z99.2 - Dependence on renal dialysis Oriana Edmonds MD Jan 30, 2018 17:09
[2018-01-30 20:00] VITALS: BP 172/75; PULSE 69; RESP 21; TEMP 99.2; O2SAT 98
[2018-01-31] VITALS (8 sets, daily range): BP systolic 158–198; BP diastolic 66–85; PULSE 63–69; RESP 17–20; TEMP 97.6–98.1; O2SAT 93–99
[2018-01-31] MEDS: HEPARIN SODIUM - SQ 10,000 UNITS/ML VIAL SQ SCH ×3 (05:20→21:15)
[2018-01-31] MEDS: DOCUSATE SODIUM 50 MG/SENNA 8.6 MG TAB PO SCH ×2 (09:00→21:00)
[2018-01-31] MEDS: SODIUM CHLORIDE 0.9% FLUSH 10 ML FLUSH IV FLUSH SCH ×2 (10:00→21:12)
[2018-01-31] MEDS ORDERED: hydrALAZINE HCL 20 MG/ML VIAL IV PUSH PRN (12:30)
[2018-01-31] MEDS ORDERED: LISINOPRIL 10 MG TAB PO SCH (12:30)
[2018-01-31] MEDS ORDERED: cloNIDine HCL 0.1 MG TAB PO ONE (12:45)
[2018-01-31] MEDS: BUMETANIDE 1 MG TAB PO SCH (12:58)
[2018-01-31] MEDS ORDERED: HEPARIN SODIUM - IV 10,000 UNITS/10 ML VIAL IV FLUSH PRN (13:00)
[2018-01-31] MEDS: cloNIDine HCL 0.1 MG TAB PO PRN (14:49)
--- NOTE | 2018-01-31 16:21 | HHI.PR ---
Subjective Remarks The patient is a 71-year-old male with history of diabetes, hypertension, peripheral neuropathy who [facility] Family came in upset feeling he is not stable enough to go home. The patient is a poor historian so most of this history is obtained from medical records. As per ED medical records the patient had been home for about 12 hours and he was feeling weak, dizzy and had generalized malaise. They called the insurance company who said that they have been discharge due to insurance issues and that he needed to return to the ER. Patient was complaining of shortness of breath, dizziness, weakness. At the moment of my interview the patient still complains of weakness, however denies chest pain, shortness of breath, nausea, vomiting, diarrhea, fevers, chills, dysuria. 01/30: Seen in his bedroom, awaiting for PT and OT for discharge if okay with Nephrology. 01/31: Seen in his bedroom, and discussed with nurse Miss Alonzo, Multidisciplinary round, uncontrolled blood pressure, as per OT and PT the patient is discussed also with his Son Mr. Rivera Salazar . the patient has uncontrolled blood pressure will try to control and discharge to SNF tomorrow. Objective Vital Signs Date Time Temp Pulse Resp B/P (MAP) Pulse Ox O2 Delivery O2 Flow Rate FiO2 01/31/18 14:10 98.1 66 17 198/81 (120) 99 01/31/18 12:00 98.0 69 18 188/85 (119) 99 01/31/18 11:32 97 Nasal Cannula 3.00 01/31/18 08:00 98.0 66 18 194/85 (121) 97 01/31/18 04:00 97.6 65 18 158/66 (96) 93 01/31/18 00:00 98.1 63 20 170/74 (106) 99 01/30/18 20:00 99.2 69 21 172/75 (107) 98 I/O 01/30/18 01/30/18 01/30/18 01/31/18 01/31/18 01/31/18 07:00 15:00 23:00 07:00 15:00 23:00 Intake Total 240 ml 700 ml 680 ml Output Total 200 ml 550 ml Balance 40 ml 700 ml 130 ml Intake Oral 240 ml 700 ml 680 ml Output Urine Total 200 ml 550 ml # Voids 3 # Bowel Movements 0 1 1 Result Diagram: 01/30/18 0658 01/30/18 0658 Imaging Last Impressions Chest X-Ray 01/28/182138 Signed Impressions: Service Date/Time: January 21:50 - CONCLUSION: Dual-lumen right central catheter tip in right atrium. Minimal basilar airspace disease. Trace pleural fluid. Cardiomegaly. Alonso Tam MD Procedures None Other Results Laboratory Tests Test 01/28/18 21:45 01/29/18 05:15 01/30/18 06:58 Blood Urea Nitrogen 49 MG/DL 37 MG/DL Creatinine 5.25 MG/DL 4.41 MG/DL Random Glucose 134 MG/DL 86 MG/DL Total Protein 7.2 GM/DL Albumin 3.4 GM/DL Calcium Level 7.9 MG/DL 8.1 MG/DL Alkaline Phosphatase 127 U/L Aspartate Amino Transf (AST/SGOT) 18 U/L Alanine Aminotransferase (ALT/SGPT) 20 U/L Total Bilirubin 0.5 MG/DL Sodium Level 136 MEQ/L 135 MEQ/L Potassium Level 3.7 MEQ/L 4.1 MEQ/L Chloride Level 97 MEQ/L 95 MEQ/L Carbon Dioxide Level 29.1 MEQ/L 33.1 MEQ/L Total Creatine Kinase 81 U/L Troponin I 0.04 NG/ML Lipase 157 U/L Urine Color LIGHT-YELLOW Urine Turbidity CLEAR Urine pH 6.0 Urine Specific [place] 1.006 Urine Protein NEG mg/dL Urine Glucose (UA) NEG mg/dL Urine Ketones NEG mg/dL Urine Occult Blood NEG Urine Nitrite NEG Urine Bilirubin NEG Urine Urobilinogen LESS THAN 2.0 MG/DL Urine Leukocyte Esterase NEG Urine RBC LESS THAN 1 /hpf Urine WBC LESS THAN 1 /hpf Urine Squamous Epithelial Cells 1 /hpf White Blood Count 5.7 TH/MM3 Red Blood Count 2.63 MIL/MM3 Hemoglobin 8.6 GM/DL Hematocrit 25.5 % Mean Corpuscular Volume 97.2 FL Mean Corpuscular Hemoglobin 32.9 PG Mean Corpuscular Hemoglobin Concent 33.9 % Red Cell Distribution Width 16.8 % Platelet Count 123 TH/MM3 Mean Platelet Volume 8.3 FL Neutrophils (%) (Auto) 73.5 % Lymphocytes (%) (Auto) 13.7 % Monocytes (%) (Auto) 10.5 % Eosinophils (%) (Auto) 1.9 % Basophils (%) (Auto) 0.4 % Neutrophils # (Auto) 4.2 TH/MM3 Lymphocytes # (Auto) 0.8 TH/MM3 Monocytes # (Auto) 0.6 TH/MM3 Eosinophils # (Auto) 0.1 TH/MM3 Basophils # (Auto) 0.0 TH/MM3 CBC Comment DIFF FINAL Differential Comment Phosphorus Level 2.4 MG/DL Anion Gap 7 MEQ/L Estimat Glomerular Filtration Rate 13 ML/MIN Iron Level 47 MCG/DL Total Iron Binding Capacity 336 MCG/DL Percent Iron Saturation 14.0 % Objective Remarks Elderly male awake, alert/oriented x 3 S1/S2, RRR no murmurs or ectopy lungs clear, no wheezing, no rales auscultation abdomen soft, non tender, nondistended, bowel sounds present extremities; no edema, braces on bilateral lower extremities, present pedal pulses. AVF LUE + thrill/bruit Permcath right chest Medications and IVs Current Medications Medications (Trade) Dose Ordered Sig/Sam Route Start Time Stop Time Status Last Admin (NS Flush) 2 ml UNSCH PRN IV FLUSH 01/29/18 02:00 (NS Flush) 2 ml BID IV FLUSH 01/29/18 09:00 01/31/18 10:00 (Tylenol) 650 mg Q4H PRN PO 01/29/18 02:00 01/30/18 06:45 (Zofran Inj) 4 mg Q6H PRN IVP 01/29/18 02:00 (Heparin Inj) 5,000 units Q8H SQ 01/29/18 06:00 01/31/18 12:58 (Narcan Inj) 0.4 mg UNSCH PRN IV PUSH 01/29/18 02:00 (Angelica-Colace) 1 tab BID PO 01/29/18 09:00 01/30/18 10:16 (Milk Of Magnesia Liq) 30 ml Q12H PRN PO 01/29/18 02:00 (Senokot) 17.2 mg Q12H PRN PO 01/29/18 02:00 (Dulcolax Supp) 10 mg DAILY PRN RECTAL 01/29/18 02:00 (Lactulose Liq) 30 ml DAILY PRN PO 01/29/18 02:00 Sodium Chloride 1,000 ml @ 0 mls/hr Q0M PRN OTHER 01/29/18 08:26 Sodium Chloride 1,000 ml @ 200 mls/hr Q5H PRN IV 01/29/18 08:26 Sodium Chloride 1,000 ml @ 0 mls/hr Q0M PRN OTHER 01/29/18 08:26 (Mannitol Inj) 12.5 gm UNSCH PRN IV 01/29/18 08:30 Albumin Human 100 ml @ 60 mls/hr UNSCH PRN IV 01/29/18 08:30 (NS Flush) 5 ml UNSCH PRN IV FLUSH 01/29/18 08:30 (Heparin Inj) UNSCH PRN .XX 01/29/18 08:30 01/29/18 16:46 (Gentamicin Inj) 20 mg UNSCH PRN OTHER 01/29/18 08:30 01/29/18 16:47 (Zofran Inj) 4 mg UNSCH PRN IV PUSH 01/29/18 08:30 (Tylenol) 650 mg UNSCH PRN PO 01/29/18 08:30 01/29/18 20:10 (Benadryl) 25 mg UNSCH PRN PO 01/29/18 08:30 (Nitrostat Sl) 0.4 mg UNSCH PRN SL 01/29/18 08:30 (Catapres) 0.1 mg UNSCH PRN PO 01/29/18 08:30 01/31/18 14:49 (Gelfoam 12 Mm/7 Mm Top) 1 foam UNSCH PRN TOP 01/29/18 08:30 (Aspirin) 325 mg DAILY PO 02/01/18 09:00 (Prinivil) 10 mg BID PO 01/31/18 12:30 01/31/18 12:59 (Pravachol) 20 mg DAILY PO 02/01/18 09:00 (Bumetanide) 2 mg DAILY PO 01/31/18 12:40 01/31/18 12:58 (Heparin Inj) 8,000 units WITH DIALYSIS PRN IV FLUSH 01/31/18 13:00 (Epogen Inj) 10,000 units WITH DIALYSIS PRN IV PUSH 01/31/18 13:00 A/P Assessment and Plan (1) Weakness ICD Code: R53.1 - Weakness Status: Chronic Plan: [facility], patient also had inpatient rehab. Unclear etiology no clear signs of infection. UA negative. Chest x-ray reviewed by me shows minimal basilar airspace disease and trace pleural fluid. Consult PT/OT. recommended for Inpatient Rehab. (2) ESRD (end stage renal disease) ICD Code: N18.6 - End stage renal disease Status: Acute Plan: Nephrology consulted. Patient on hemodialysis support MWF was admitted. Permacath on right, aVF is patent but not ready for use. Monitor BMP and follow phosphorus. Avoid IV fluid administration. (3) Diabetes ICD Code: E11.9 - Diabetes Status: Chronic Plan: Placed on SSI and monitor Accu-Cheks Blood sugar seems to be stable. (4) Anemia ICD Code: D64.9 - Anemia, unspecified Status: Acute Plan: Likely secondary to end-stage renal disease. Epogen with dialysis as per nephrology. Follow-up iron profile in a.m. (5) Hypertension uncontrolled continue home medicines and added Clonidine as needed for Hypertension systolic blood pressure 160 mm Hg.or over. Increased Lisinopril to 20 mg BID. Assessment and Plan DVT prophylaxis: DVT reflexes, heparin subcutaneous. Code Status Full code Discussed Condition With Patient, Nurse, his Son and MDR. Discharge Planning Discharge to SNF in one to two days. Hilario Nelson MD Jan 31, 2018 16:20
--- NOTE | 2018-01-31 17:51 | HHI.NPPN ---
Objective Data Data Vital Signs Date Time Temp Pulse Resp B/P (MAP) Pulse Ox O2 Delivery O2 Flow Rate FiO2 01/31/18 14:10 98.1 66 17 198/81 (120) 99 01/31/18 12:00 98.0 69 18 188/85 (119) 99 01/31/18 11:32 97 Nasal Cannula 3.00 01/31/18 08:00 98.0 66 18 194/85 (121) 97 01/31/18 04:00 97.6 65 18 158/66 (96) 93 01/31/18 00:00 98.1 63 20 170/74 (106) 99 01/30/18 20:00 99.2 69 21 172/75 (107) 98 -: 01/30/18 0658 01/30/18 0658 Physical Exam General Appearance: Well Developed, Well Nourished Neck Neck Exam: Neck Supple Pulmonary Resp Exam: Decreased Bases Cardiology CV Exam: Regular Gastrointestinal/Abdomen GI Exam: Soft Extremeties Extremities Exam: Trace Edema Assessment/Plan Problem List: (1) ESRD (end stage renal disease) ICD Codes: N18.6 - End stage renal disease Status: Acute Plan: We will continue dialytic support MWF while admitted Normally follows with Dr. Zamora in [facility] for outpatient HD HD Thursday UF3L Using Permcath on right, AVF is patent but not ready for use Intermittently monitor labs, obtain phosphorus level as he is not on phosphorus binders Avoid IVF administration continue HD in am Dr. Cameron to follow (2) Weakness ICD Codes: R53.1 - Weakness Status: Chronic Plan: Recent discharge from [facility] for same He also had inpatient rehab Needs PT/OT, he is deconditioned Needs motivation (3) Diabetes ICD Codes: E11.9 - Diabetes Status: Chronic Plan: Maintain glucose 140-180 mg/dL while hospitalized (4) Anemia ICD Codes: D64.9 - Anemia, unspecified Status: Acute Plan: Epogen with dialysis has been ordered Check iron profile in AM Problem Qualifiers (1) Diabetes: Qualified Codes: E11.9 - Type 2 diabetes mellitus without complications (2) Anemia: Qualified Codes: N18.6 - End stage renal disease; D63.1 - Anemia in chronic kidney disease; Z99.2 - Dependence on renal dialysis Oriana Edmonds MD Jan 31, 2018 17:50
--- NOTE | 2018-01-31 18:00 | HHI.NPPN ---
Objective Data Data Vital Signs Date Time Temp Pulse Resp B/P (MAP) Pulse Ox O2 Delivery O2 Flow Rate FiO2 01/31/18 14:10 98.1 66 17 198/81 (120) 99 01/31/18 12:00 98.0 69 18 188/85 (119) 99 01/31/18 11:32 97 Nasal Cannula 3.00 01/31/18 08:00 98.0 66 18 194/85 (121) 97 01/31/18 04:00 97.6 65 18 158/66 (96) 93 01/31/18 00:00 98.1 63 20 170/74 (106) 99 01/30/18 20:00 99.2 69 21 172/75 (107) 98 -: 01/30/18 0658 01/30/18 0658 Physical Exam General Appearance: Well Developed, Well Nourished Neck Neck Exam: Neck Supple Pulmonary Resp Exam: Decreased Bases Cardiology CV Exam: Regular Gastrointestinal/Abdomen GI Exam: Soft Extremeties Extremities Exam: Trace Edema Assessment/Plan Problem List: (1) ESRD (end stage renal disease) ICD Codes: N18.6 - End stage renal disease Status: Acute Plan: We will continue dialytic support MWF while admitted Normally follows with [facility] Zam[facility] in [facility] for outpatient HD HD Thursday UF3L Using Permcath on right, AVF is patent but not ready for use Intermittently monitor labs, obtain phosphorus level as he is not on phosphorus binders Avoid IVF administration continue HD on Thursday High BP hydralazine PRN/ Lisinopril 20 MG BID,clonidine prn Dr. Cameron to follow (2) Weakness ICD Codes: R53.1 - Weakness Status: Chronic Plan: Recent discharge from [facility] for same He also had inpatient rehab Needs PT/OT, he is deconditioned Needs motivation (3) Diabetes ICD Codes: E11.9 - Diabetes Status: Chronic Plan: Maintain glucose 140-180 mg/dL while hospitalized (4) Anemia ICD Codes: D64.9 - Anemia, unspecified Status: Acute Plan: Epogen with dialysis has been ordered Check iron profile in AM Problem Qualifiers (1) Diabetes: Qualified Codes: E11.9 - Type 2 diabetes mellitus without complications (2) Anemia: Qualified Codes: N18.6 - End stage renal disease; D63.1 - Anemia in chronic kidney disease; Z99.2 - Dependence on renal dialysis Oriana Edmonds MD Jan 31, 2018 18:00
[2018-01-31] MEDS ORDERED: cloNIDine HCL 0.1 MG TAB PO PRN (21:00)
[2018-01-31] MEDS: diphenhydrAMINE HCL 25 MG CAP PO PRN (21:13)
[2018-01-31] MEDS: LISINOPRIL 20 MG TAB PO SCH (21:14)
[2018-02-01] VITALS: BP 152/65; PULSE 62; RESP 18; TEMP 97.1; O2SAT 97
[2018-02-01 04:00] VITALS: BP 161/73; PULSE 61; RESP 17; TEMP 97.5; O2SAT 97
[2018-02-01] MEDS: HEPARIN SODIUM - SQ 10,000 UNITS/ML VIAL SQ SCH ×3 (06:31→21:35)
[2018-02-01 07:29] VITALS: BP 149/66; PULSE 60; RESP 18; TEMP 97.6; O2SAT 98
[2018-02-01] MEDS: BUMETANIDE 1 MG TAB PO SCH (08:53)
[2018-02-01] MEDS: hydrALAZINE HCL 25 MG TAB PO SCH ×2 (08:54→20:40)
[2018-02-01] MEDS: SODIUM CHLORIDE 0.9% FLUSH 10 ML FLUSH IV FLUSH SCH ×2 (08:54→20:40)
[2018-02-01] MEDS: ASPIRIN 325 MG TAB PO SCH (08:54)
[2018-02-01] MEDS: DOCUSATE SODIUM 50 MG/SENNA 8.6 MG TAB PO SCH ×2 (08:54→20:40)
[2018-02-01] MEDS: LISINOPRIL 20 MG TAB PO SCH ×2 (08:55→20:40)
[2018-02-01] MEDS: PRAVASTATIN SOD 20 MG TAB PO SCH (08:55)
[2018-02-01] MEDS ORDERED: BUMETANIDE 1 MG TAB PO SCH (09:00)
--- NOTE | 2018-02-01 09:42 | HHI.NPPN ---
Subjective General Problems: Hypertension Renal Failure: Chronic, End Stage Renal Disease Interval History Seen during dialysis. States he is having diarrhea. (Stacey Grace) Objective Data Data Vital Signs Date Time Temp Pulse Resp B/P (MAP) Pulse Ox O2 Delivery O2 Flow Rate FiO2 02/01/18 07:29 97.6 60 18 149/66 (93) 98 02/01/18 04:00 97.5 61 17 161/73 (102) 97 02/01/18 00:00 97.1 62 18 152/65 (94) 97 01/31/18 20:00 98.0 64 17 180/72 (108) 98 01/31/18 19:47 Nasal Cannula 3.00 01/31/18 16:00 97.6 64 18 167/77 (107) 01/31/18 14:10 98.1 66 17 198/81 (120) 99 01/31/18 12:00 98.0 69 18 188/85 (119) 99 01/31/18 11:32 97 Nasal Cannula 3.00 (Stacey Grace) -: 01/30/18 0658 01/30/18 0658 Tubes & Lines: Perma-Cath (Stacey Grace) Physical Exam General Appearance: Well Developed, Well Nourished (Stacey Grace) Eyes Eye Exam: Pupils Equal, Pupils Reactive (Stacey Grace) Neck Neck Exam: Neck Supple (Stacey Grace) Pulmonary Resp Exam: Clear Bilaterally, Breath Sounds Equal, Decreased Bases (Stacey Grace) Cardiology CV Exam: Regular (Stacey Grace) Gastrointestinal/Abdomen GI Exam: Soft, Non-Tender, Bowel Sounds Present, Positive Bowel Movement (Stacey Grace) Musculoskeletal MS Exam: Joints Intact, Normal Tone, Unable to Ambulate MS Remarks generalized weakness (Stacey Grace) Extremeties Extremities Exam: Trace Edema (Stacey Grace) Neurologic Neuro Exam: Awake, Speech Clear, Moving All Extremities (Stacey Grace) Psychiatric Psych Exam: Appropriate Responses (Stacey Grace) Assessment/Plan Discussed Condition With: Patient Assessment Summary: Anemia of CKD, Hypertension, End Stage Renal Disease Problem List: (1) ESRD (end stage renal disease) ICD Codes: N18.6 - End stage renal disease Status: Acute Plan: We will continue dialytic support MWF Normally follows with Dr. Zamora in [facility] for outpatient HD Seen during dialysis today karla 3K, 350 BFR, goal 3L Using Permcath on right, AVF is patent but not ready for use Intermittently monitor labs Phosphorus was low over the weekend, recheck in AM and replace as needed Avoid IVF administration (2) Weakness ICD Codes: R53.1 - Weakness Status: Chronic Plan: Recent discharge from [facility] for same He also had inpatient rehab Needs PT/OT, he is deconditioned and seems unmotivated gen weakness: treat anemia, continue high protein diet, rule out infections (3) Diabetes ICD Codes: E11.9 - Diabetes Status: Chronic Plan: Maintain glucose 140-180 mg/dL while hospitalized (4) Anemia ICD Codes: D64.9 - Anemia, unspecified Status: Acute Plan: On Epogen with dialysis has iron deficiency, start venofer (Stacey Grace) Plan patient was seen and examined. Agree with above assessment and plan. Seen during dialysis. Epogen and iv iron for anemia. (Sanju Cameron MD) Problem Qualifiers (1) Diabetes: Qualified Codes: E11.9 - Type 2 diabetes mellitus without complications (2) Anemia: Qualified Codes: N18.6 - End stage renal disease; D63.1 - Anemia in chronic kidney disease; Z99.2 - Dependence on renal dialysis Stacey Grace Feb 01, 2018 09:42 Sanju Cameron MD Feb 01, 2018 10:00
[2018-02-01] MEDS: IRON SUCROSE INJ 100 MG in SODIUM CHLORIDE 0.9% INJ 100 ML IV SCH (11:00)
[2018-02-01] MEDS: HEPARIN SODIUM - IV 10,000 UNITS/10 ML VIAL PRN (11:58)
[2018-02-01] MEDS: EPOETIN ALFA 10,000 UNITS/ML VIAL IV PUSH PRN (11:58)
[2018-02-01] MEDS: GENTAMICIN SULFATE 20 MG/2 ML VIAL OTHER PRN (11:59)
--- NOTE | 2018-02-01 15:24 | HHI.PR ---
Subjective Remarks Pt seen and examined. BPs remain elevated. Patient on 3L nasal cannula. Had HD today. No current complaints. Denies CP, SOB, abdominal pain, N/V. Pt's son is working on finding a SNF for him as he does NOT want his father going to [place]. He was made aware that the patient will be ready for discharge likely tomorrow. Objective Vital Signs Date Time Temp Pulse Resp B/P (MAP) Pulse Ox O2 Delivery O2 Flow Rate FiO2 02/01/18 12:31 3.00 02/01/18 07:29 97.6 60 18 149/66 (93) 98 02/01/18 04:00 97.5 61 17 161/73 (102) 97 02/01/18 00:00 97.1 62 18 152/65 (94) 97 01/31/18 20:00 98.0 64 17 180/72 (108) 98 01/31/18 19:47 Nasal Cannula 3.00 01/31/18 16:00 97.6 64 18 167/77 (107) I/O 01/31/18 01/31/18 01/31/18 02/01/18 02/01/18 02/01/18 07:00 15:00 23:00 07:00 15:00 23:00 Intake Total 680 ml 800 ml 90 ml Output Total 550 ml 300 ml 3000 ml Balance 130 ml 800 ml -210 ml -3000 ml Intake Oral 680 ml 800 ml 90 ml Output Urine Total 550 ml 300 ml Hemodialysis 3000 ml # Voids 3 # Bowel Movements 1 2 Result Diagram: 01/30/1858 01/30/18 0658 Procedures None Objective Remarks GENERAL: Elderly male laying in bed in NAD. SKIN: Warm and dry. Permacath R chest. HEENT: AT/NC. Pupils equal and round. MMM. NECK: Supple no tender LAD or JVD. HEART: RRR no m/r/g. LUNGS: CTAB without wheezes or crackles. ABDOMEN: +BS, soft, NT, ND. EXTREMITIES: No LE edema. 1+ pedal pulses. AVF LUE with palpable thrill. NEURO: Awake and alert. Nonfocal. A/P Problem List: (1) ESRD (end stage renal disease) ICD Code: N18.6 - End stage renal disease Status: Chronic (2) Diabetes ICD Code: E11.9 - Diabetes Status: Chronic (3) CHF (congestive heart failure) ICD Code: I50.9 - Heart failure, unspecified Status: Chronic (4) DM polyneuropathy ICD Code: E11.42 - Type 2 diabetes mellitus with diabetic polyneuropathy Status: Chronic (5) Physical deconditioning ICD Code: R53.81 - Physical deconditioning Status: Chronic Assessment and Plan 72 YOWM with ESRD on HD, neuropathy, poorly-controlled HTN, and CHF admitted on 01/29 after he was discharged home from SNF but his family felt that he was not ready to be at home as he was feeling weak, dizzy, and had generalized malaise. 1. ESRD - Nephrology consulted - On HD MWF - 3L fluid removed today - Has AVF but not mature so using right chest Permacath - Avoid IV fluids and nephrotoxic agents - Renally dose medications 2. Anemia of chronic disease - Started on iron infusion - On Epogen 3. HTN - Remains elevated - Start hydralazine 25 mg Q12 and can titrate - Resume Lisinopril - Clonidine PRN 4. Weakness/debility - U/A negative and CXR with no consolidation, no signs of infection - PT - Case management assisting with D/C needs - Accepted into [facility] but patient's father refusing to let him go there so looking for other options 5. DVT prophylaxis: Heparin Discharge Planning Anticipate D/C to SNF tomorrow if BP is better controlled Problem Qualifiers (1) Diabetes: Qualified Codes: E11.9 - Type 2 diabetes mellitus without complications Clary Chan MD Feb 01, 2018 15:24
[2018-02-01 16:00] VITALS: BP 170/75; PULSE 65; RESP 18; TEMP 98.4; O2SAT 97
[2018-02-01] MEDS: cloNIDine HCL 0.1 MG TAB PO PRN (17:14)
[2018-02-01 20:15] VITALS: BP 153/68; PULSE 63; RESP 18; TEMP 98.4; O2SAT 99
[2018-02-02] VITALS (7 sets, daily range): BP systolic 139–184; BP diastolic 65–79; PULSE 60–64; RESP 16–18; TEMP 98.1–98.5; O2SAT 93–99
[2018-02-02] MEDS: HEPARIN SODIUM - SQ 10,000 UNITS/ML VIAL SQ SCH ×2 (05:23→23:13)
[2018-02-02 05:28] LABS: BICARBONATE 30.7 MEQ/L (21.0-32.0); CALCIUM 7.8 MG/DL (8.5-10.1); CREATININE 5.03 MG/DL (0.60-1.30); PHOSPHORUS 2.9 MG/DL (2.5-4.9)
[2018-02-02 05:42] LABS: AUTOMATED NEUTROPHIL # 3.2 TH/MM3 (1.8-7.7); BASOPHIL % 0.5 % (0.0-2.0); EOSINOPHIL # 0.1 TH/MM3 (0-0.4); EOSINOPHIL % 2.1 % (0.0-4.0); HEMATOCRIT 24.2 % (39.0-51.0); HEMOGLOBIN 8.1 GM/DL (13.0-17.0); LYMPH % 16.9 % (9.0-44.0); LYMPHOCYTE # 0.8 TH/MM3 (1.0-4.8); MEAN CELL VOLUME 96.9 FL (80.0-100.0); MEAN CORPUSCULAR HEMOGLOBIN 32.6 PG (27.0-34.0); MEAN CORPUSCULAR HGB CONC 33.6 % (32.0-36.0); MEAN PLATELET VOLUME 8.4 FL (7.0-11.0); MONO % 11.1 % (0.0-8.0); MONOCYTE # 0.5 TH/MM3 (0-0.9); NEUT % 69.4 % (16.0-70.0); PLATELET COUNT 131 TH/MM3 (150-450); RED BLOOD COUNT 2.49 MIL/MM3 (4.50-5.90); RED CELL DISTRIBUTION WIDTH 16.7 % (11.6-17.2); WHITE BLOOD COUNT 4.6 TH/MM3 (4.0-11.0)
[2018-02-02] MEDS: LISINOPRIL 20 MG TAB PO SCH ×2 (09:25→19:58)
[2018-02-02] MEDS: hydrALAZINE HCL 25 MG TAB PO SCH ×2 (09:25→19:55)
[2018-02-02] MEDS: DOCUSATE SODIUM 50 MG/SENNA 8.6 MG TAB PO SCH ×2 (09:25→19:55)
[2018-02-02] MEDS: PRAVASTATIN SOD 20 MG TAB PO SCH (09:25)
[2018-02-02] MEDS: ASPIRIN 325 MG TAB PO SCH (09:26)
[2018-02-02] MEDS: BUMETANIDE 1 MG TAB PO SCH (09:26)
[2018-02-02] MEDS: IRON SUCROSE INJ 100 MG in SODIUM CHLORIDE 0.9% INJ 100 ML IV SCH (09:30)
[2018-02-02] MEDS: SODIUM CHLORIDE 0.9% FLUSH 10 ML FLUSH IV FLUSH SCH ×2 (09:30→19:58)
--- NOTE | 2018-02-02 10:22 | HHI.NPPN ---
Subjective General Problems: Hypertension Renal Failure: Chronic, End Stage Renal Disease Interval History Dialyzed yesterday. Son is working on SNF transfer. (Stacey Grace) Objective Data Data Vital Signs Date Time Temp Pulse Resp B/P (MAP) Pulse Ox O2 Delivery O2 Flow Rate FiO2 02/02/18 07:45 98.5 64 18 143/67 (92) 93 02/02/18 03:46 Nasal Cannula 3.00 02/02/18 00:20 98.1 64 18 139/65 (89) 94 02/01/18 20:15 98.4 63 18 153/68 (96) 99 02/01/18 16:00 98.4 65 18 170/75 (106) 97 02/01/18 12:31 3.00 (Stacey Grace) -: 02/02/18 0445 02/02/18 0445 Tubes & Lines: Perma-Cath (Stacey Grace) Physical Exam General Appearance: Well Developed, Well Nourished (Stacey Grace) Eyes Eye Exam: Pupils Equal, Pupils Reactive (Stacey Grace) Neck Neck Exam: Neck Supple (Stacey Grace) Pulmonary Resp Exam: Clear Bilaterally, Breath Sounds Equal, Decreased Bases (Stacey Grace) Cardiology CV Exam: Regular (Stacey Grace) Gastrointestinal/Abdomen GI Exam: Soft, Non-Tender, Bowel Sounds Present, Positive Bowel Movement (Stacey Grace) Musculoskeletal MS Exam: Joints Intact, Normal Tone, Unable to Ambulate MS Remarks generalized weakness (Stacey Grace) Extremeties Extremities Exam: Trace Edema (Stacey Grace) Neurologic Neuro Exam: Awake, Speech Clear, Moving All Extremities (Stacey Grace) Psychiatric Psych Exam: Appropriate Responses (Stacey Grace) Assessment/Plan Discussed Condition With: Patient Assessment Summary: Anemia of CKD, Hypertension, End Stage Renal Disease Problem List: (1) ESRD (end stage renal disease) ICD Codes: N18.6 - End stage renal disease Status: Chronic Plan: We will continue dialytic support MWF. 3L UF yesterday. Normally follows with Dr. Zamora in [facility] for outpatient HD Seen during dialysis today karla 3K, 350 BFR, goal 3L Using Permcath on right, AVF is patent but not ready for use Intermittently monitor labs Phosphorus is slightly low but has improved. Avoid IVF administration (2) Weakness ICD Codes: R53.1 - Weakness Status: Chronic Plan: Recent discharge from [facility] for same He also had inpatient rehab Needs PT/OT, he is deconditioned and seems unmotivated gen weakness: treat anemia, continue high protein diet, rule out infections (3) Diabetes ICD Codes: E11.9 - Diabetes Status: Chronic Plan: Maintain glucose 140-180 mg/dL while hospitalized (4) Anemia ICD Codes: D64.9 - Anemia, unspecified Status: Acute Plan: On Epogen with dialysis also on venofer (Stacey Grace) Plan patient was seen and examined. AVF appears patent, unclear why it is not being used. He can be discharged from renal standpoint. Continue Epogen and Venofer for anemia. (Sanju Cameron MD) Problem Qualifiers (1) Diabetes: Qualified Codes: E11.9 - Type 2 diabetes mellitus without complications (2) Anemia: Qualified Codes: N18.6 - End stage renal disease; D63.1 - Anemia in chronic kidney disease; Z99.2 - Dependence on renal dialysis Stacey Grace Feb 02, 2018 10:22 Sanju Cameron MD Feb 02, 2018 15:13
--- NOTE | 2018-02-02 13:37 | HHI.PR ---
Subjective Remarks Follow-up for Jeremías cano Atrial fibrillation controlled, heart rate in the 70s. No overnight events. Discussed with RN Objective Vitals Vital Signs Date Time Temp Pulse Resp B/P (MAP) Pulse Ox O2 Delivery O2 Flow Rate FiO2 02/02/18 07:45 98.5 64 18 143/67 (92) 93 02/02/18 03:46 Nasal Cannula 3.00 02/02/18 00:20 98.1 64 18 139/65 (89) 94 02/01/18 20:15 98.4 63 18 153/68 (96) 99 02/01/18 16:00 98.4 65 18 170/75 (106) 97 I/O 02/01/18 02/01/18 02/01/18 02/02/18 02/02/18 02/02/18 07:00 15:00 23:00 07:00 15:00 23:00 Intake Total 90 ml 480 ml 360 ml Output Total 300 ml 3350 ml 200 ml Balance -210 ml -2870 ml 160 ml Intake Oral 90 ml 480 ml 360 ml Output Urine Total 300 ml 350 ml 200 ml Hemodialysis 3000 ml # Bowel Movements 2 1 0 Result Diagram: 02/02/1844402/02/18444 Objective Remarks GENERAL: Elderly male laying in bed in NAD. SKIN: Warm and dry. Permacath R chest. NECK: Supple no tender LAD or JVD. HEART: RRR no m/r/g. LUNGS: CTAB without wheezes or crackles. ABDOMEN: +BS, soft, NT, ND. EXTREMITIES: No LE edema. 1+ pedal pulses. AVF LUE with palpable thrill. NEURO: Awake and alert. Nonfocal. A/P Problem List: (1) Weakness ICD Code: R53.1 - Weakness Status: Chronic (2) ESRD (end stage renal disease) ICD Code: N18.6 - End stage renal disease Status: Chronic (3) Diabetes ICD Code: E11.9 - Diabetes Status: Chronic (4) Anemia ICD Code: D64.9 - Anemia, unspecified Status: Acute Assessment and Plan 72 YOWM with ESRD on HD, neuropathy, poorly-controlled HTN, and CHF admitted on 01/29 after he was discharged home from SNF but his family felt that he was not ready to be at home as he was feeling weak, dizzy, and had generalized malaise. 1. ESRD - Nephrology consulted - On HD MWF - Has AVF but not mature so using right chest Permacath - Avoid IV fluids and nephrotoxic agents - Renally dose medications 2. Anemia of chronic disease - Started on iron infusion - On Epogen 3. HTN -Improved -Continue hydralazine 25 mg Q12 and can titrate - Resume Lisinopril - Clonidine PRN 4. Weakness/debility - U/A negative and CXR with no consolidation, no signs of infection - PT - Case management assisting with D/C needs - Accepted into [facility] but patient's father refusing to let him go there so looking for other options 5. DVT prophylaxis: Heparin Discharge Planning Discharge to [facility] Problem Qualifiers (1) Diabetes: Qualified Codes: E11.9 - Type 2 diabetes mellitus without complications (2) Anemia: Qualified Codes: N18.6 - End stage renal disease; D63.1 - Anemia in chronic kidney disease; Z99.2 - Dependence on renal dialysis Tammy Laws MD Feb 02, 2018 13:37
[2018-02-02] MEDS ORDERED: HYDR-3799 PO (13:39)
--- NOTE | 2018-02-02 13:42 | HHI.DS ---
Discharge Summary Admission Date Jan 29, 2018 at 01:55 Discharge Date: Feb 02, 2018 Admitting Diagnosis hypoxia , anemia, SOB (1) Weakness ICD Code: R53.1 - Weakness Status: Chronic (2) ESRD (end stage renal disease) ICD Code: N18.6 - End stage renal disease Status: Chronic (3) Diabetes ICD Code: E11.9 - Diabetes Status: Chronic (4) Anemia ICD Code: D64.9 - Anemia, unspecified Status: Acute Procedures None Brief History - From Admission The patient is a 71-year-old male with history of diabetes, hypertension, peripheral neuropathy who was recently discharged from [facility]. Family came in upset feeling he is not stable enough to go home. The patient is a poor historian so most of this history is obtained from medical records. As per ED medical records the patient had been home for about 12 hours and he was feeling weak, dizzy and had generalized malaise. They called the insurance company who said that they have been discharge due to insurance issues and that he needed to return to the ER. Patient was complaining of shortness of breath, dizziness, weakness. At the moment of my interview the patient still complains of weakness, however denies chest pain, shortness of breath, nausea, vomiting, diarrhea, fevers, chills, dysuria. CBC/BMP: 02/02/18 0445 02/02/18 0445 Significant Findings Laboratory Tests Test 02/02/18 04:45 Red Blood Count 2.49 MIL/MM3 (4.50-5.90) Hemoglobin 8.1 GM/DL (13.0-17.0) Hematocrit 24.2 % (39.0-51.0) Platelet Count 131 TH/MM3 (150-450) Monocytes (%) (Auto) 11.1 % (0.0-8.0) Lymphocytes # (Auto) 0.8 TH/MM3 (1.0-4.8) Blood Urea Nitrogen 40 MG/DL (7-18) Creatinine 5.03 MG/DL (0.60-1.30) Albumin 3.0 GM/DL (3.4-5.0) Calcium Level 7.8 MG/DL (8.5-10.1) Chloride Level 96 MEQ/L (98-107) Estimat Glomerular Filtration Rate 11 ML/MIN (>89) Imaging Last Impressions Chest X-Ray 01/28/182138 Signed Impressions: Service Date/Time: January 21:50 - CONCLUSION: Dual-lumen right central catheter tip in right atrium. Minimal basilar airspace disease. Trace pleural fluid. Cardiomegaly. Alonso Tam MD PE at Discharge GENERAL: Elderly male laying in bed in NAD. SKIN: Warm and dry. Permacath R chest. NECK: Supple no tender LAD or JVD. HEART: RRR no m/r/g. LUNGS: CTAB without wheezes or crackles. ABDOMEN: +BS, soft, NT, ND. EXTREMITIES: No LE edema. 1+ pedal pulses. AVF LUE with palpable thrill. NEURO: Awake and alert. Nonfocal. Hospital Course 72 YOWM with ESRD on HD, neuropathy, poorly-controlled HTN, and CHF admitted on 01/29 after he was discharged home from SNF but his family felt that he was not ready to be at home as he was feeling weak, dizzy, and had generalized malaise. Upon admission, nephrology was consulted for treatment for end-stage renal disease. Patient was also given iron for anemia of chronic disease. Patient's blood pressure was elevated hence the patient was continued on lisinopril and start on hydralazine. Regarding patient's weakness and debility and unremarkable. Urinalysis negative, chest x-ray is negative. Patient will need to continue physical therapy at the rehab facility. Patient will be discharged to rehab. 5. DVT prophylaxis: Heparin Pt Condition on Discharge: Good Discharge Disposition: Discharge to SNF Discharge Time: > 30 minutes Discharge Instructions DIET: Follow Instructions for: Heart Healthy Diet, Renal Failure Diet Activities you can perform: Regular-No Restrictions New Medications: Hydralazine HCl (Hydralazine HCl) 25 Mg Tablet 25 MG PO Q8HR for htn, #90 TAB Continued Medications: Aspirin DR (Aspirin EC) 81 Mg Tabdr 81 MG PO DAILY for prevent stroke for 30 Days, TAB 0 Refills Start after completing one month of aspirin 325mg daily. Bumetanide (Bumetanide) 2 Mg Tab 2 MG PO Herminio, Jose Faithes, Betty, TAB 0 Refills Lisinopril (Lisinopril) 10 Mg Tab 10 MG PO BID, #30 TAB 0 Refills Lovastatin (Lovastatin) 20 Mg Tab 20 MG PO DAILY for Cholesterol Management, #30 TAB 0 Refills Discontinued Medications: Aspirin (Aspirin) 325 Mg Tab 325 MG PO DAILY for heart/ prevent stroke for 30 Days, TAB after one Month, switch to 81 mg by mouth daily. Tammy Laws MD Feb 02, 2018 13:42
[2018-02-02] MEDS: cloNIDine HCL 0.1 MG TAB PO PRN (23:44)
[2018-02-03] VITALS (7 sets, daily range): BP systolic 144–177; BP diastolic 60–76; PULSE 59–63; RESP 16–18; TEMP 97.8–98.3; O2SAT 94–99
[2018-02-03] MEDS: HEPARIN SODIUM - SQ 10,000 UNITS/ML VIAL SQ SCH ×3 (06:21→21:16)
[2018-02-03] MEDS: BUMETANIDE 1 MG TAB PO SCH (08:14)
[2018-02-03] MEDS: ASPIRIN 325 MG TAB PO SCH (08:15)
[2018-02-03] MEDS: PRAVASTATIN SOD 20 MG TAB PO SCH (08:15)
[2018-02-03] MEDS: LISINOPRIL 20 MG TAB PO SCH ×2 (08:15→21:15)
[2018-02-03] MEDS: DOCUSATE SODIUM 50 MG/SENNA 8.6 MG TAB PO SCH ×2 (08:15→21:00)
[2018-02-03] MEDS: hydrALAZINE HCL 25 MG TAB PO SCH ×3 (08:15→21:15)
[2018-02-03] MEDS: SODIUM CHLORIDE 0.9% FLUSH 10 ML FLUSH IV FLUSH SCH ×2 (08:16→21:17)
[2018-02-03] MEDS: IRON SUCROSE INJ 100 MG in SODIUM CHLORIDE 0.9% INJ 100 ML IV SCH (08:24)
--- NOTE | 2018-02-03 11:04 | HHI.NPPN ---
Subjective General Problems: Hypertension Renal Failure: Chronic, End Stage Renal Disease Interval History Due for dialysis today. No new developments. Potential discharge to SNF. (Stacey Grace) Objective Data Data Vital Signs Date Time Temp Pulse Resp B/P (MAP) Pulse Ox O2 Delivery O2 Flow Rate FiO2 02/03/18 09:32 97 21 02/03/18 07:47 98.3 59 18 170/72 (104) 99 02/03/18 04:00 98.0 60 18 158/68 (98) 98 02/03/18 00:41 153/72 (99) 02/02/18 23:40 98.5 61 18 178/78 (111) 99 02/02/18 21:05 156/68 (97) 02/02/18 19:00 98.3 60 16 172/74 (106) 99 02/02/18 16:00 98.4 60 18 184/79 (114) 99 02/02/18 12:00 98.4 61 18 150/67 (94) 99 (Stacey Grace) -: 02/02/18 0445 02/02/18 0445 Tubes & Lines: Perma-Cath (Stacey Grace) Physical Exam General Appearance: Well Developed, Well Nourished, No Acute Distress, Comfortable (Stacey Grace) Eyes Eye Exam: Pupils Equal, Pupils Reactive (Stacey Grace) Neck Neck Exam: Neck Supple (Stacey Grace) Pulmonary Resp Exam: Clear Bilaterally, Breath Sounds Equal, Decreased Bases (Stacey Grace) Cardiology CV Exam: Regular, Normal Sinus Rhythm (Stacey Grace) Gastrointestinal/Abdomen GI Exam: Soft, Non-Tender, Bowel Sounds Present, Positive Bowel Movement (Stacey Grace) Musculoskeletal MS Exam: Joints Intact, Normal Tone, Unable to Ambulate MS Remarks generalized weakness (Stacey Grace) Integumentary Skin Exam: Warm (Stacey Grace) Extremeties Extremities Exam: No Edema, Pedal Pulses Palpable (Stacey Grace) Neurologic Neuro Exam: Alert, Awake, Oriented, Speech Clear, Moving All Extremities (Stacey Grace) Psychiatric Psych Exam: Appropriate Responses (Stacey Grace) Assessment/Plan Discussed Condition With: Patient Assessment Summary: Anemia of CKD, Hypertension, End Stage Renal Disease Problem List: (1) ESRD (end stage renal disease) ICD Codes: N18.6 - End stage renal disease Status: Chronic Plan: We will continue dialytic support MWF. He is due today Normally follows with Dr. Zamora in [facility] for outpatient HD, will have dialysis there Thursday if discharged today. Using Permcath on right, AVF is patent but not ready for use Intermittently monitor labs Avoid IVF administration (2) Weakness ICD Codes: R53.1 - Weakness Status: Chronic Plan: Recent discharge from local SNF for same He also had inpatient rehab Needs PT/OT, he is deconditioned and seems unmotivated (3) Diabetes ICD Codes: E11.9 - Diabetes Status: Chronic Plan: Maintain glucose 140-180 mg/dL while hospitalized (4) Anemia ICD Codes: D64.9 - Anemia, unspecified Status: Acute Plan: On venofer daily also on Epogen with dialysis Plan p (Stacey Grace) Plan patient was seen and examined. Continue dialysis support MWF. He is cleared for discharge from renal standpoint. (Sanju Cameron MD) Problem Qualifiers (1) Diabetes: Qualified Codes: E11.9 - Type 2 diabetes mellitus without complications (2) Anemia: Qualified Codes: N18.6 - End stage renal disease; D63.1 - Anemia in chronic kidney disease; Z99.2 - Dependence on renal dialysis Stacey Grace Feb 03, 2018 11:04 Sanju Cameron MD Feb 03, 2018 21:42
--- NOTE | 2018-02-03 15:35 | HHI.PR ---
Subjective Remarks The patient is in bed at baseline no change. Denies having any chest pain or shortness of breath no nausea vomiting no diarrhea or constipation. He appears to not acute distress at this time. He is saturating well on room air. Objective Vitals Vital Signs Date Time Temp Pulse Resp B/P (MAP) Pulse Ox O2 Delivery O2 Flow Rate FiO2 02/03/18 12:00 98.0 60 17 144/65 (91) 94 02/03/18 09:32 97 21 02/03/18 07:47 98.3 59 18 170/72 (104) 99 02/03/18 04:00 98.0 60 18 158/68 (98) 98 02/03/18 00:41 153/72 (99) 02/02/18 23:40 98.5 61 18 178/78 (111) 99 02/02/18 21:05 156/68 (97) 02/02/18 19:00 98.3 60 16 172/74 (106) 99 02/02/18 16:00 98.4 60 18 184/79 (114) 99 I/O 02/02/18 02/02/18 02/02/18 02/03/18 02/03/18 02/03/18 06:59 14:59 22:59 06:59 14:59 22:59 Intake Total 360 ml 620 ml 360 ml Output Total 200 ml 300 ml 200 ml 150 ml 3000 ml Balance 160 ml 320 ml -200 ml 210 ml -3000 ml Intake Oral 360 ml 620 ml 360 ml Output Urine Total 200 ml 300 ml 200 ml 150 ml Hemodialysis 3000 ml # Voids 1 # Bowel Movements 0 1 0 Result Diagram: 02/02/1844402/02/18444 Imaging Last Impressions Chest X-Ray 01/28/182138 Signed Impressions: Service Date/Time: January 21:50 - CONCLUSION: Dual-lumen right central catheter tip in right atrium. Minimal basilar airspace disease. Trace pleural fluid. Cardiomegaly. Alonso Tam MD Objective Remarks GENERAL: Elderly male laying in bed in NAD. SKIN: Warm and dry. Permacath R chest. NECK: Supple no tender LAD or JVD. HEART: RRR no m/r/g. LUNGS: CTAB without wheezes or crackles. ABDOMEN: +BS, soft, NT, ND. EXTREMITIES: No LE edema. 1+ pedal pulses. AVF LUE with palpable thrill. NEURO: Awake and alert. Nonfocal. Procedures None A/P Problem List: (1) Weakness ICD Code: R53.1 - Weakness Status: Chronic (2) ESRD (end stage renal disease) ICD Code: N18.6 - End stage renal disease Status: Chronic (3) Diabetes ICD Code: E11.9 - Diabetes Status: Chronic (4) Anemia ICD Code: D64.9 - Anemia, unspecified Status: Acute Assessment and Plan 72 YOWM with ESRD on HD, neuropathy, poorly-controlled HTN, and CHF admitted on 01/29 after he was discharged home from SNF but his family felt that he was not ready to be at home as he was feeling weak, dizzy, and had generalized malaise. ESRD - Nephrology consulted - On HD MWF - Has AVF but not mature so using right chest Permacath - Avoid IV fluids and nephrotoxic agents - Renally dose medications Anemia of chronic disease On iron infusion On Epogen HTN Monitor closely Increase hydralazine 25 mg Q8H Resume Lisinopril Clonidine PRN Weakness/debility U/A negative and CXR with no consolidation, no signs of infection PT Case management assisting with D/C needs Accepted into [facility] but patient's father refusing to let him go there so looking for other options DVT prophylaxis: Heparin Discharge Planning needs SNF Note: discussed with patient's son Rivera does not want the patient to be discharged to a local SNF. Would like the patient to go to acute rehab however patient cannot follow any commands. He also wants Dr Dumont his neurology consulted. Consult neurology Dr Segovia per patient/son request. Also son called [employer] and is contesting discharge, for now DC is on hold. ' Problem Qualifiers (1) Diabetes: Qualified Codes: E11.9 - Type 2 diabetes mellitus without complications (2) Anemia: Qualified Codes: N18.6 - End stage renal disease; D63.1 - Anemia in chronic kidney disease; Z99.2 - Dependence on renal dialysis Genesis Muse MD Feb 03, 2018 15:35
--- NOTE | 2018-02-03 16:29 | MB ---
cc: Nerissa Aguilar MD DATE: 02/03/2018 HISTORY OF PRESENT ILLNESS: He is 72 years old, seen in neurological consultation. The patient was admitted on 01/29 and was being discharged, but apparently, there was a disagreement with the family about this discharge. They requested neurological consultation by Dr. Segovia, but Dr. Segovia is evidently not covering consults today. 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 The patient provides the history. He uses a walker and braces and he is able to walk. Recently, he was in a [facility] rehab, and he was subsequently discharged to the home, but apparently, did not do well at home and was brought to the hospital. There is a history of diabetes and hypertension. PHYSICAL EXAMINATION: Exam showed that he was having dialysis, and he was awakened then. He was actually alert and oriented, could provide the orientation answers with minimal assistance. He provides his history including the previous history of neuropathy and treatment by Dr. Segovia, etc. He is aware of the disposition issues discussed. His left eye has a larger pill, which does not appear to be reactive, and he is blind on the left eye. His vision on the right is foggy with some possible right-sided visual loss out of the right eye. His right pupil was smaller and reactive. There was slight left facial asymmetry. He gripped symmetrically with some intrinsic hand muscle wasting and weakness. He also started flexing the knees and was able to extend the knees and oppose mild resistance. Unable to really dorsiflex the feet. There was minimal toe dorsiflexion. Plantar flexion is partially preserved. Reflexes were essentially absent throughout and plantar responses flexor. Limited sensory perception in the distal lower extremities including position sense. LABORATORY DATA: Reviewed. Yesterday, WBC 4.6, hemoglobin 8.1, platelets 131. Chemistry yesterday, sodium 136, potassium 4.4, BUN 40, creatinine 5.0, glucose 86. No brain imaging studies at this time. Back in 04/2017, MRI was done showing mild chronic ischemic demyelinization. ASSESSMENT: 1. Chronic encephalopathy. 2. 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 3. Diabetes mellitus. 4. Hypertension. 5. End-stage renal disease. PLAN: Neurologic matias, no other intervention at this point. His encephalopathy seems to be relatively mild. He can be followed as outpatient by Dr. Segovia, his usual neurologist. Continue rehab care. Medical care otherwise. Thank you for asking us to assist in his care. MD FARHAD Lechuga/SB , 03:57 PM , 04:28 PM
[2018-02-04] VITALS (8 sets, daily range): BP systolic 153–189; BP diastolic 65–79; PULSE 63–77; RESP 17–19; TEMP 97.9–98.8; O2SAT 92–99
[2018-02-04] MEDS: ACETAMINOPHEN 325 MG TAB PO PRN ×2 (03:41→08:22)
[2018-02-04] MEDS: RESP: ALBUTEROL 2.5 MG/IPRATROPIUM 0.5 MG NEB (PRN) NEB (05:10)
[2018-02-04] MEDS: hydrALAZINE HCL 25 MG TAB PO SCH ×3 (06:00→21:46)
[2018-02-04] MEDS: HEPARIN SODIUM - SQ 10,000 UNITS/ML VIAL SQ SCH ×3 (07:02→21:46)
[2018-02-04] MEDS: BUMETANIDE 1 MG TAB PO SCH (10:39)
[2018-02-04] MEDS: ASPIRIN 325 MG TAB PO SCH (10:39)
[2018-02-04] MEDS: DOCUSATE SODIUM 50 MG/SENNA 8.6 MG TAB PO SCH ×2 (10:40→20:24)
[2018-02-04] MEDS: PRAVASTATIN SOD 20 MG TAB PO SCH (10:40)
[2018-02-04] MEDS: LISINOPRIL 20 MG TAB PO SCH ×2 (10:40→20:25)
[2018-02-04] MEDS: amLODIPine BESYLATE 5 MG TAB PO SCH (10:43)
[2018-02-04] MEDS: SODIUM CHLORIDE 0.9% FLUSH 10 ML FLUSH IV FLUSH SCH ×2 (10:44→21:46)
--- NOTE | 2018-02-04 11:22 | HHI.NPPN ---
Subjective General Problems: Hypertension Renal Failure: Chronic, End Stage Renal Disease Interval History He is resting. The son contested discharge. Neurology has evaluated, no acute etiology to his generalized weakness. Dialysis went okay yesterday. (Stacey Grace) Review of Systems General Constitutional: Fatigue General Remarks generalized weakness (Stacey Grace) Objective Data Data Vital Signs Date Time Temp Pulse Resp B/P (MAP) Pulse Ox O2 Delivery O2 Flow Rate FiO2 02/04/18 08:00 98.4 68 17 189/77 (114) 96 02/04/18 04:24 159/65 (96) 02/04/18 03:56 98.1 77 19 169/72 (104) 94 02/04/18 00:00 98.4 66 18 157/72 (100) 92 02/03/18 19:54 98.1 61 16 160/60 (93) 96 02/03/18 17:30 97.8 63 16 177/76 (109) 95 02/03/18 12:00 98.0 60 17 144/65 (91) 94 (Stacey Grace) -: 02/02/18 0445 02/02/18 0445 Imaging Last Impressions Chest X-Ray 01/28/182138 Signed Impressions: Service Date/Time: January 21:50 - CONCLUSION: Dual-lumen right central catheter tip in right atrium. Minimal basilar airspace disease. Trace pleural fluid. Cardiomegaly. Alonso Tam MD Tubes & Lines: Perma-Cath (Stacey Grace) Physical Exam General Appearance: Well Developed, Well Nourished, No Acute Distress, Comfortable (Stacey Grace) Eyes Eye Exam: Sclera White (Stacey Grace) Throat Throat Exam: Oral Mucosa [place] & Moist (Stacey Grace) Neck Neck Exam: Neck Supple (Stacey Grace) Pulmonary Resp Exam: Clear Bilaterally, Breath Sounds Equal, Decreased Bases (Stacey Grace) Cardiology CV Exam: Regular, Normal Sinus Rhythm (Stacey Grace) Gastrointestinal/Abdomen GI Exam: Soft, Non-Tender, Bowel Sounds Present, Positive Bowel Movement (Stacey Grace) Musculoskeletal MS Exam: Joints Intact, Normal Tone, Unable to Ambulate MS Remarks generalized weakness (Stacey Grace) Integumentary Skin Exam: Clear, Warm, Dry, Intact (Stacey GraceP) Extremeties Extremities Exam: No Edema, Pedal Pulses Palpable (Stacey Grace) Neurologic Neuro Exam: Alert, Awake, Oriented, Speech Clear, Moving All Extremities (Stacey GraceP) Psychiatric Psych Exam: Appropriate Responses (Stacey Grace) Assessment/Plan Discussed Condition With: Patient Assessment Summary: Anemia of CKD, Hypertension, End Stage Renal Disease Problem List: (1) ESRD (end stage renal disease) ICD Codes: N18.6 - End stage renal disease Status: Chronic Plan: We will continue dialytic support MWF. Yesterday he tolerated treatment without difficulty. Tomorrow we will attempt to cannulate his AVF with one needle. It has not been successfully cannulated, unclear if there were issues. He normally follows with Dr. Zamora in [facility] for outpatient HD. He has Permcath on right, dressing changes as needed Intermittently monitor labs Avoid IVF administration His halfway prognosis is poor given multiple comorbidities. He is at risk for multiple complications including infection given his halfway indwelling CVC. He is also at risk for cardiac complications including arrhythmia, NC and CVA. (2) Weakness ICD Codes: R53.1 - Weakness Status: Chronic Plan: Recent discharge from local SNF for same He also had inpatient rehab Needs PT/OT, he is deconditioned and seems unmotivated Neurology has evaluated, no acute etiology but has chronic issues that may be contributing. The son contested discharge, wants inpatient PT/OT. Disposition is not clear at this time. (3) Diabetes ICD Codes: E11.9 - Diabetes Status: Chronic Plan: Maintain glucose 140-180 mg/dL while hospitalized (4) Anemia ICD Codes: D64.9 - Anemia, unspecified Status: Acute Plan: Continue Venofer daily for a total of 10 doses also on Epogen with dialysis (5) HTN (hypertension) ICD Codes: I10 - Hypertension Status: Chronic Plan: Blood pressure is elevated. He is refusing PO medications. Add amlodipine. Also on hydralazine and lisinopril. (Stacey Grace) Plan patient was seen and examined. Remove protein restriction, he needs high protein diet. His phosphorus is low normal, not on binders. I have started protein supplement. Patient is at risk for complications, but it appears that there is nothing acute , and so he is cleared for discharge from renal standpoint, he needs to follow up with his career technical counselor. (Sanju Cameron MD) Problem Qualifiers (1) Diabetes: Qualified Codes: E11.9 - Type 2 diabetes mellitus without complications (2) Anemia: Qualified Codes: N18.6 - End stage renal disease; D63.1 - Anemia in chronic kidney disease; Z99.2 - Dependence on renal dialysis Stacey Grace Feb 04, 2018 11:22 Sanju Cameron MD Feb 04, 2018 20:47
--- NOTE | 2018-02-04 16:00 | HHI.PR ---
Subjective Remarks The patient is in the bed he does not appear in acute distress. No nausea vomiting no diarrhea or constipation. Objective Vitals Vital Signs Date Time Temp Pulse Resp B/P (MAP) Pulse Ox O2 Delivery O2 Flow Rate FiO2 02/04/18 12:00 98.8 66 17 160/72 (101) 95 02/04/18 08:00 98.4 68 17 189/77 (114) 96 02/04/18 04:24 159/65 (96) 02/04/18 03:56 98.1 77 19 169/72 (104) 94 02/04/18 00:00 98.4 66 18 157/72 (100) 92 02/03/18 19:54 98.1 61 16 160/60 (93) 96 02/03/18 17:30 97.8 63 16 177/76 (109) 95 I/O 02/03/18 02/03/18 02/03/18 02/04/18 02/04/18 02/04/18 07:00 15:00 23:00 07:00 15:00 23:00 Intake Total 360 ml 105 ml 480 ml Output Total 150 ml 3000 ml Balance 210 ml -2895 ml 480 ml Intake Oral 360 ml 480 ml IV Total 105 ml Output Urine Total 150 ml Hemodialysis 3000 ml # Voids 3 4 # Bowel Movements 0 0 Result Diagram: 02/02/1844402/02/18444 Imaging Last Impressions Chest X-Ray 01/28/182138 Signed Impressions: Service Date/Time: January 21:50 - CONCLUSION: Dual-lumen right central catheter tip in right atrium. Minimal basilar airspace disease. Trace pleural fluid. Cardiomegaly. Alonso Tam MD Objective Remarks GENERAL: Elderly male laying in bed in NAD. SKIN: Warm and dry. Permacath R chest. NECK: Supple no tender LAD or JVD. HEART: RRR no m/r/g. LUNGS: CTAB without wheezes or crackles. ABDOMEN: +BS, soft, NT, ND. EXTREMITIES: No LE edema. 1+ pedal pulses. AVF LUE with palpable thrill. NEURO: Awake and alert. Nonfocal. Procedures None A/P Problem List: (1) Weakness ICD Code: R53.1 - Weakness Status: Chronic (2) ESRD (end stage renal disease) ICD Code: N18.6 - End stage renal disease Status: Chronic (3) Diabetes ICD Code: E11.9 - Diabetes Status: Chronic (4) Anemia ICD Code: D64.9 - Anemia, unspecified Status: Acute Assessment and Plan 72 YOWM with ESRD on HD, neuropathy, poorly-controlled HTN, and CHF admitted on 01/29 after he was discharged home from SNF but his family felt that he was not ready to be at home as he was feeling weak, dizzy, and had generalized malaise. ESRD - Nephrology consulted - On HD MWF - Has AVF but not mature so using right chest Permacath - Avoid IV fluids and nephrotoxic agents - Renally dose medications Anemia of chronic disease On iron infusion On Epogen HTN Monitor closely Increase hydralazine 25 mg Q8H Resume Lisinopril Clonidine PRN Weakness/debility U/A negative and CXR with no consolidation, no signs of infection PT Case management assisting with D/C needs Accepted into [facility] but patient's father refusing to let him go there so looking for other options DVT prophylaxis: Heparin Discharge Planning needs SNF Note: discussed with patient's son Rivera does not want the patient to be discharged to a local SNF. Would like the patient to go to acute rehab however patient cannot follow any commands. He also wants Dr Dumont his neurology consulted. Consult neurology Dr Segovia per patient/son request. Also son called [employer] and is contesting discharge, for now DC is on hold. Discussed with CM, working with the son to get patient to SNF or rehab in [place] , son prefers inpatient rehab in [place] however patient might not meet criteria. Problem Qualifiers (1) Diabetes: Qualified Codes: E11.9 - Type 2 diabetes mellitus without complications (2) Anemia: Qualified Codes: N18.6 - End stage renal disease; D63.1 - Anemia in chronic kidney disease; Z99.2 - Dependence on renal dialysis Genesis Muse MD Feb 04, 2018 16:00
[2018-02-04] MEDS: IRON SUCROSE INJ 100 MG in SODIUM CHLORIDE 0.9% INJ 100 ML IV SCH (17:21)
--- NOTE | 2018-02-04 18:23 | HHI.PR ---
Review/Management Daily Summary 02/04 doing well oriented and remembers my visit yesterday, sitting in chair no new cx neuro matias can be followed by dr Segovia in the office 2 weeks post d/c Subjective Subjective Comments No acute events reported No headache Active Medications Current Medications Medications (Trade) Dose Ordered Sig/Sam Route Start Time Stop Time Status Last Admin (NS Flush) 2 ml UNSCH PRN IV FLUSH 01/29/18 02:00 (NS Flush) 2 ml BID IV FLUSH 01/29/18 09:00 02/04/18 10:44 (Tylenol) 650 mg Q4H PRN PO 01/29/18 02:00 02/04/18 03:41 (Zofran Inj) 4 mg Q6H PRN IVP 01/29/18 02:00 (Heparin Inj) 5,000 units Q8H SQ 01/29/18 06:00 02/04/18 17:21 (Narcan Inj) 0.4 mg UNSCH PRN IV PUSH 01/29/18 02:00 (Angelica-Colace) 1 tab BID PO 01/29/18 09:00 02/04/18 10:40 (Milk Of Magnesia Liq) 30 ml Q12H PRN PO 01/29/18 02:00 (Senokot) 17.2 mg Q12H PRN PO 01/29/18 02:00 (Dulcolax Supp) 10 mg DAILY PRN RECTAL 01/29/18 02:00 (Lactulose Liq) 30 ml DAILY PRN PO 01/29/18 02:00 Sodium Chloride 1,000 ml @ 0 mls/hr Q0M PRN OTHER 01/29/18 08:26 Sodium Chloride 1,000 ml @ 200 mls/hr Q5H PRN IV 01/29/18 08:26 Sodium Chloride 1,000 ml @ 0 mls/hr Q0M PRN OTHER 01/29/18 08:26 (Mannitol Inj) 12.5 gm UNSCH PRN IV 01/29/18 08:30 Albumin Human 100 ml @ 60 mls/hr UNSCH PRN IV 01/29/18 08:30 (NS Flush) 5 ml UNSCH PRN IV FLUSH 01/29/18 08:30 (Heparin Inj) UNSCH PRN .XX 01/29/18 08:30 02/01/18 11:58 (Gentamicin Inj) 20 mg UNSCH PRN OTHER 01/29/18 08:30 02/01/18 11:59 (Zofran Inj) 4 mg UNSCH PRN IV PUSH 01/29/18 08:30 (Tylenol) 650 mg UNSCH PRN PO 01/29/18 08:30 01/29/18 20:10 (Benadryl) 25 mg UNSCH PRN PO 01/29/18 08:30 01/31/18 21:13 (Nitrostat Sl) 0.4 mg UNSCH PRN SL 01/29/18 08:30 (Catapres) 0.1 mg UNSCH PRN PO 01/29/18 08:30 02/02/18 23:44 (Gelfoam 12 Mm/7 Mm Top) 1 foam UNSCH PRN TOP 01/29/18 08:30 (Aspirin) 325 mg DAILY PO 02/01/18 09:00 02/04/18 10:39 (Pravachol) 20 mg DAILY PO 02/01/18 09:00 02/04/18 10:40 (Bumetanide) 2 mg DAILY PO 01/31/18 12:40 02/04/18 10:39 (Heparin Inj) 8,000 units WITH DIALYSIS PRN IV FLUSH 01/31/18 13:00 (Epogen Inj) 10,000 units WITH DIALYSIS PRN IV PUSH 01/31/18 13:00 02/01/18 11:58 (Prinivil) 20 mg BID PO 01/31/18 21:00 02/04/18 10:40 (Catapres) 0.1 mg Q6H PRN PO 01/31/18 21:00 01/31/18 21:14 (Apresoline) 25 mg Q8HR PO 02/03/18 14:00 02/04/18 17:20 (Duoneb Neb) 1 ampule Q2HR NEB PRN NEB 02/04/18 04:30 02/04/18 05:10 (Norvasc) 5 mg DAILY PO 02/04/18 09:45 02/04/18 10:43 Iron Sucrose 100 mg/Sodium Chloride 105 ml @ 105 mls/hr DAILY IV 02/04/18 13:00 02/10/18 09:59 02/04/18 17:21 Allergies Allergies Coded Allergies amoxicillin (Unverified Allergy, Severe, RASH, 06/09/17) clavulanic acid (Unverified Allergy, Severe, RASH, 06/09/17) codeine (Unverified Allergy, Severe, SWELLING, 06/09/17) penicillin G (Unverified Allergy, Severe, RASH, 06/09/17) prednisone (Unverified Allergy, Severe, RASH, 06/09/17) iodine (Unverified Allergy, Unknown, SWELLING, 06/09/17) lactose (Unverified Allergy, Unknown, 06/09/17) potassium iodide (Unverified Allergy, Unknown, SWELLING, 06/09/17) povidone-iodine (Unverified Allergy, Unknown, SWELLING, 06/09/17) sodium iodide (Unverified Allergy, Unknown, SWELLING, 06/09/17) sodium iodide (Unverified Allergy, Unknown, SWELLING, 06/09/17) duloxetine (Unverified Adverse Reaction, Severe, STOMACH IRRITATION, 06/09/17) Review of Systems All other ROS: ROS reviewed as documented in chart Exam I&O / VS 02/04/18 02/04/18 02/05/18 15:00 23:00 07:00 Intake Total 480 ml Balance 480 ml Intake Oral 480 ml # Voids 2 # Bowel Movements 0 Vital Signs Date Time Temp Pulse Resp B/P (MAP) Pulse Ox O2 Delivery O2 Flow Rate FiO2 02/04/18 16:00 98.2 63 17 153/68 (96) 99 02/04/18 12:00 98.8 66 17 160/72 (101) 95 02/04/18 08:00 98.4 68 17 189/77 (114) 96 02/04/18 04:24 159/65 (96) 02/04/18 03:56 98.1 77 19 169/72 (104) 94 02/04/18 00:00 98.4 66 18 157/72 (100) 92 02/03/18 19:54 98.1 61 16 160/60 (93) 96 Neurologic: Alert, Oriented Psychiatric: Cooperative, Appropriate mood & affect, Normal judgement Nerissa Aguilar MD Feb 04, 2018 18:23
[2018-02-05 03:55] VITALS: BP 172/71; PULSE 79; RESP 18; TEMP 98.7; O2SAT 93
[2018-02-05] MEDS: HEPARIN SODIUM - SQ 10,000 UNITS/ML VIAL SQ SCH ×3 (06:06→21:24)
[2018-02-05] MEDS: hydrALAZINE HCL 25 MG TAB PO SCH ×3 (06:06→21:23)
[2018-02-05 08:00] VITALS: BP 177/77; PULSE 79; RESP 16; TEMP 99.4; O2SAT 98
[2018-02-05] MEDS: SODIUM CHLORIDE 0.9% FLUSH 10 ML FLUSH IV FLUSH SCH ×2 (09:00→21:23)
[2018-02-05] MEDS: PRAVASTATIN SOD 20 MG TAB PO SCH (09:00)
[2018-02-05] MEDS: LISINOPRIL 20 MG TAB PO SCH ×2 (09:00→21:23)
--- NOTE | 2018-02-05 09:24 | HHI.NPPN ---
Subjective General Problems: Hypertension Renal Failure: Chronic, End Stage Renal Disease Interval History Seen during dialysis. No new issues. (Stacey Grace) Review of Systems General Constitutional: Fatigue General Remarks generalized weakness (Stacey Grace) Objective Data Data Vital Signs Date Time Temp Pulse Resp B/P (MAP) Pulse Ox O2 Delivery O2 Flow Rate FiO2 02/05/18 08:00 99.4 79 16 177/77 (110) 98 02/05/18 03:55 98.7 79 18 172/71 (104) 93 02/04/18 23:59 97.9 74 18 181/79 (113) 94 02/04/18 20:20 98.1 65 18 163/74 (103) 92 02/04/18 16:00 98.2 63 17 153/68 (96) 99 02/04/18 12:00 98.8 66 17 160/72 (101) 95 (Staecy Grace) -: 02/02/18 0445 02/02/18 0445 Tubes & Lines: Perma-Cath (Stacey Grace) Physical Exam General Appearance: Well Developed, Well Nourished, No Acute Distress, Comfortable (Stacey Grace) Eyes Eye Exam: Sclera White (Stacey Grace) Throat Throat Exam: Oral Mucosa [place] & Moist (Stacey Grace) Neck Neck Exam: Neck Supple (Stacey Grace) Pulmonary Resp Exam: Clear Bilaterally, Breath Sounds Equal, Decreased Bases (Stacey Grace) Cardiology CV Exam: Regular, Normal Sinus Rhythm (Stacey Grace) Gastrointestinal/Abdomen GI Exam: Soft, Non-Tender, Bowel Sounds Present, Positive Bowel Movement (Stacey Grace) Musculoskeletal MS Exam: Joints Intact, Normal Tone, Unable to Ambulate MS Remarks generalized weakness (Stacey Grace) Integumentary Skin Exam: Clear, Warm, Dry, Intact (Stacey Grace) Extremeties Extremities Exam: No Edema, Pedal Pulses Palpable (Stacey Grace) Neurologic Neuro Exam: Alert, Awake, Oriented, Speech Clear, Moving All Extremities (Stacey Grace) Psychiatric Psych Exam: Appropriate Responses (Stacey Grace) Assessment/Plan Discussed Condition With: Patient Assessment Summary: Anemia of CKD, Hypertension, End Stage Renal Disease Problem List: (1) ESRD (end stage renal disease) ICD Codes: N18.6 - End stage renal disease Status: Chronic Plan: Seen during dialysis today on a 2K, 300 BFR, goal 3L We will continue dialytic support MWF during this admission, outpatient arrangements are in place in [facility] for discharge purposes.. He will follow with supervisor industrial arts education, Dr. Zamora. . Successful and non difficult cannulation of L AVF with one needle. Perm cath in place on left. Intermittently monitor labs Avoid IVF administration On high protein diet with supplements. 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 He is at risk for multiple complications including infection given his senior living indwelling CVC. He is also at risk for cardiac complications including arrhythmia, [place] and CVA. (2) Weakness ICD Codes: R53.1 - Weakness Status: Chronic Plan: Recent discharge from local SNF for same with inpatient rehab Needs PT/OT, he is deconditioned and seems unmotivated Neurology has evaluated, no acute etiology but has chronic issues that may be contributing. The son contested discharge, wants inpatient PT/OT. Disposition is not clear at this time. (3) Diabetes ICD Codes: E11.9 - Diabetes Status: Chronic Plan: Maintain glucose 140-180 mg/dL while hospitalized (4) Anemia ICD Codes: D64.9 - Anemia, unspecified Status: Acute Plan: On Venofer daily for a total of 10 doses also on Epogen with dialysis (5) HTN (hypertension) ICD Codes: I10 - Hypertension Status: Chronic Plan: Blood pressure is elevated. He had refused some PO medications yesterday. On amlodipine, hydralazine, and lisinopril. (Stacey Grace) Plan patient was seen and examined. Agree with above assessment and plan. (Sanju Cameron MD) Problem Qualifiers (1) Diabetes: Qualified Codes: E11.9 - Type 2 diabetes mellitus without complications (2) Anemia: Qualified Codes: N18.6 - End stage renal disease; D63.1 - Anemia in chronic kidney disease; Z99.2 - Dependence on renal dialysis Stacey Grace Feb 05, 2018 09:24 Sanju Cameron MD Feb 05, 2018 12:40
--- NOTE | 2018-02-05 10:11 | HHI.PR ---
Subjective Remarks went for HD and was seen at noon after he returned from HD. Patient says she has some nonproductive cough. No fever ro chills. no n/v/d/c. Denies chest pain or sob. Objective Vitals Vital Signs Date Time Temp Pulse Resp B/P (MAP) Pulse Ox O2 Delivery O2 Flow Rate FiO2 02/05/18 08:00 99.4 79 16 177/77 (110) 98 02/05/18 03:55 98.7 79 18 172/71 (104) 93 02/04/18 23:59 97.9 74 18 181/79 (113) 94 02/04/18 20:20 98.1 65 18 163/74 (103) 92 02/04/18 16:00 98.2 63 17 153/68 (96) 99 02/04/18 12:00 98.8 66 17 160/72 (101) 95 I/O 02/04/18 02/04/18 02/04/18 02/05/18 02/05/18 02/05/18 07:00 15:00 23:00 07:00 15:00 23:00 Intake Total 480 ml 360 ml Output Total 250 ml Balance 480 ml 110 ml Intake Oral 480 ml 360 ml Output Urine Total 250 ml # Voids 4 2 # Bowel Movements 0 0 Result Diagram: 02/02/1844402/02/18444 Imaging Last Impressions Chest X-Ray 01/28/182138 Signed Impressions: Service Date/Time: January 21:50 - CONCLUSION: Dual-lumen right central catheter tip in right atrium. Minimal basilar airspace disease. Trace pleural fluid. Cardiomegaly. Alonso Tam MD Objective Remarks GENERAL: Elderly male laying in bed in NAD. SKIN: Warm and dry. Permacath R chest. NECK: Supple no tender LAD or JVD. HEART: RRR no m/r/g. LUNGS: CTAB without wheezes or crackles. ABDOMEN: +BS, soft, NT, ND. EXTREMITIES: No LE edema. 1+ pedal pulses. AVF LUE with palpable thrill. NEURO: Awake and alert. Nonfocal. Procedures None A/P Problem List: (1) Weakness ICD Code: R53.1 - Weakness Status: Chronic (2) ESRD (end stage renal disease) ICD Code: N18.6 - End stage renal disease Status: Chronic (3) Diabetes ICD Code: E11.9 - Diabetes Status: Chronic (4) Anemia ICD Code: D64.9 - Anemia, unspecified Status: Acute Assessment and Plan 72 YOWM with ESRD on HD, neuropathy, poorly-controlled HTN, and CHF admitted on 01/29 after he was discharged home from SNF but his family felt that he was not ready to be at home as he was feeling weak, dizzy, and had generalized malaise. ESRD - Nephrology consulted - On HD MWF - Has AVF but not mature so using right chest Permacath - Avoid IV fluids and nephrotoxic agents - Renally dose medications Anemia of chronic disease On iron infusion On Epogen HTN Monitor closely Increase hydralazine 25 mg Q8H Resume Lisinopril Clonidine PRN Weakness/debility U/A negative and CXR with no consolidation, no signs of infection PT Case management assisting with D/C needs [facility]ed into [facility] but patient's father refusing to let him go there so looking for other options With nonproductive cough, will order CxR, influenza, and also add mucinex DVT prophylaxis: Heparin Discharge Planning needs SNF Note: discussed with patient's son Rivera does not want the patient to be discharged to a local SNF. Would like the patient to go to acute rehab however patient cannot follow any commands. He also wants Dr Dumont his neurology consulted. Consult neurology Dr Segovia per patient/son request. Also son called [employer] and is contesting discharge, for now DC is on hold. Discussed with CM, working with the son to get patient to SNF or rehab in [place] , son prefers inpatient rehab in [place] however patient might not meet criteria. Problem Qualifiers (1) Diabetes: Qualified Codes: E11.9 - Type 2 diabetes mellitus without complications (2) Anemia: Qualified Codes: N18.6 - End stage renal disease; D63.1 - Anemia in chronic kidney disease; Z99.2 - Dependence on renal dialysis Genesis Muse MD Feb 05, 2018 10:11
[2018-02-05] MEDS: GENTAMICIN SULFATE 20 MG/2 ML VIAL OTHER PRN (11:45)
[2018-02-05] MEDS: IRON SUCROSE INJ 100 MG in SODIUM CHLORIDE 0.9% INJ 100 ML IV SCH ×2 (11:45→14:37)
[2018-02-05] MEDS: EPOETIN ALFA 10,000 UNITS/ML VIAL IV PUSH PRN (11:45)
[2018-02-05] MEDS: HEPARIN SODIUM - IV 10,000 UNITS/10 ML VIAL PRN (11:46)
[2018-02-05] MEDS: ASPIRIN 325 MG TAB PO SCH (14:36)
[2018-02-05] MEDS: DOCUSATE SODIUM 50 MG/SENNA 8.6 MG TAB PO SCH ×2 (14:36→21:23)
[2018-02-05] MEDS: amLODIPine BESYLATE 5 MG TAB PO SCH (14:36)
[2018-02-05] MEDS: BUMETANIDE 1 MG TAB PO SCH (14:36)
[2018-02-05 16:00] VITALS: BP 133/63; PULSE 60; RESP 15; TEMP 100.1; O2SAT 96
--- NOTE | 2018-02-05 17:36 | RADRPT ---
EXAM DATE/TIME: 02/05/2018 17:07 [facility] COMPARISON: CHEST SINGLE AP, January 28, 2018, 21:50. INDICATIONS : Short of breath. MEDICAL HISTORY : Diabetes mellitus type 2. Hypertension. Gastroesophageal reflux disease SURGICAL HISTORY : Appendectomy. Retina surgery. Infusaport ENCOUNTER: Subsequent ACUITY: 1 week PAIN SCORE: 0/10 LOCATION: Bilateral chest FINDINGS: Right internal jugular dialysis catheter has its tip in the right atrium. There is no pneumothorax. T he heart is enlarged. Mild central pulmonary congestion is noted. No focal pneumonia is noted. CONCLUSION: Mild central pulmonary congestion. Cardiomegaly. Abdulaziz Brewer MD on February 05, 2018 at 17:32 Board Certified Radiologist. This report was verified electronically.
[2018-02-05] MEDS: ACETAMINOPHEN 325 MG TAB PO PRN (19:09)
[2018-02-05 20:00] VITALS: BP 136/63; PULSE 78; RESP 18; TEMP 98.3; O2SAT 95
[2018-02-05] MEDS: guaiFENesin E.R. 600 MG TAB PO SCH (21:23)
[2018-02-06] VITALS (8 sets, daily range): BP systolic 126–169; BP diastolic 60–96; PULSE 76–88; RESP 17–22; TEMP 98–100; O2SAT 92–97
[2018-02-06] MEDS ORDERED: PHENOL 1.4% SOLN 180 ML BTL OROPHARYNG PRN (02:15)
[2018-02-06] MEDS: BENZONATATE 100 MG CAP PO PRN ×3 (03:29→17:06)
[2018-02-06] MEDS: HEPARIN SODIUM - SQ 10,000 UNITS/ML VIAL SQ SCH ×3 (05:25→22:16)
[2018-02-06] MEDS: hydrALAZINE HCL 25 MG TAB PO SCH ×3 (05:25→22:17)
[2018-02-06] MEDS: diphenhydrAMINE HCL 25 MG CAP PO PRN (05:27)
[2018-02-06 07:57] LABS: AUTOMATED NEUTROPHIL # 3.7 TH/MM3 (1.8-7.7); BASOPHIL % 0.2 % (0.0-2.0); EOSINOPHIL % 0.4 % (0.0-4.0); HEMATOCRIT 25.6 % (39.0-51.0); HEMOGLOBIN 8.8 GM/DL (13.0-17.0); LYMPH % 9.2 % (9.0-44.0); LYMPHOCYTE # 0.4 TH/MM3 (1.0-4.8); MEAN CELL VOLUME 97.1 FL (80.0-100.0); MEAN CORPUSCULAR HEMOGLOBIN 33.3 PG (27.0-34.0); MEAN CORPUSCULAR HGB CONC 34.3 % (32.0-36.0); MONO % 11.5 % (0.0-8.0); MONOCYTE # 0.5 TH/MM3 (0-0.9); NEUT % 78.7 % (16.0-70.0); PLATELET COUNT 121 TH/MM3 (150-450); RED BLOOD COUNT 2.63 MIL/MM3 (4.50-5.90); RED CELL DISTRIBUTION WIDTH 16.8 % (11.6-17.2); WHITE BLOOD COUNT 4.7 TH/MM3 (4.0-11.0)
[2018-02-06 08:17] LABS: BICARBONATE 31.6 MEQ/L (21.0-32.0); CALCIUM 8.2 MG/DL (8.5-10.1); CREATININE 4.65 MG/DL (0.60-1.30)
[2018-02-06] MEDS: SODIUM CHLORIDE 0.9% FLUSH 10 ML FLUSH IV FLUSH SCH ×2 (09:00→22:16)
[2018-02-06] MEDS: LISINOPRIL 20 MG TAB PO SCH ×2 (09:00→22:17)
--- NOTE | 2018-02-06 10:13 | HHI.PR ---
Subjective Remarks In the chair. Appears in nad. Says she feels sob at times. and also he has a nonproductive cough. Sattign well on room air. No wheezing. No n/v/d/c. No fever or chills. Objective Vitals Vital Signs Date Time Temp Pulse Resp B/P (MAP) Pulse Ox O2 Delivery O2 Flow Rate FiO2 02/06/18 08:00 99.0 83 17 146/96 (113) 93 02/06/18 00:00 98.7 82 19 151/71 (97) 92 02/05/18 20:00 98.3 78 18 136/63 (87) 95 02/05/18 16:00 100.1 60 15 133/63 (86) 96 I/O 02/05/18 02/05/18 02/05/18 02/06/18 02/06/18 02/06/18 07:00 15:00 23:00 07:00 15:00 23:00 Intake Total 360 ml 480 ml 700 ml Output Total 250 ml 3000 ml 50 ml Balance 110 ml -2520 ml 650 ml Intake Oral 360 ml 480 ml 700 ml Output Urine Total 250 ml 50 ml Stool Total 0 ml Hemodialysis 3000 ml # Voids 2 # Bowel Movements 0 1 Result Diagram: 02/06/18 0711 02/06/18 0711 Imaging Last Impressions Chest X-Ray 02/05/18 0000 Signed Impressions: Service Date/Time: Monday, February 05, 2018 17:07 - CONCLUSION: Mild central pulmonary congestion. Cardiomegaly. Abdulaziz Brewer MD Objective Remarks GENERAL: Elderly male laying in bed in NAD. SKIN: Warm and dry. Permacath R chest. NECK: Supple no tender LAD or JVD. HEART: RRR no m/r/g. LUNGS: CTAB without wheezes or crackles. ABDOMEN: +BS, soft, NT, ND. EXTREMITIES: No LE edema. 1+ pedal pulses. AVF LUE with palpable thrill. NEURO: Awake and alert. Nonfocal. Procedures None A/P Problem List: (1) Weakness ICD Code: R53.1 - Weakness Status: Chronic (2) ESRD (end stage renal disease) ICD Code: N18.6 - End stage renal disease Status: Chronic (3) Diabetes ICD Code: E11.9 - Diabetes Status: Chronic (4) Anemia ICD Code: D64.9 - Anemia, unspecified Status: Acute Assessment and Plan 72 YOWM with ESRD on HD, neuropathy, poorly-controlled HTN, and CHF admitted on 01/29 after he was discharged home from SNF but his family felt that he was not ready to be at home as he was feeling weak, dizzy, and had generalized malaise. ESRD - Nephrology consulted - On HD MWF - Has AVF but not mature so using right chest Permacath - Avoid IV fluids and nephrotoxic agents - Renally dose medications Anemia of chronic disease On iron infusion On Epogen HTN Monitor closely Increase hydralazine 25 mg Q8H Resume Lisinopril Clonidine PRN Weakness/debility U/A negative and CXR with no consolidation, no signs of infection PT Case management assisting with D/C needs Accepted into [facility] but patient's father refusing to let him go there so looking for other options With nonproductive cough, CXR reviewed with mild congestion patient needs HD. On mucinex , add duonebs DVT prophylaxis: Heparin Discharge Planning needs SNF Note: discussed with patient's son Rivera does not want the patient to be discharged to a local SNF. Would like the patient to go to acute rehab however patient cannot follow any commands. He also wants Dr Dumont his neurology consulted. Consult neurology Dr Segovia per patient/son request. Seen by neuro and cleared for DC to follow up as OP with neuro. Also son called [employer] and is contesting discharge, for now DC is on hold. Discussed with CM, working with the son to get patient to SNF or rehab in [place] , son prefers inpatient rehab in [place] however patient might not meet criteria. Son contested discharge. Problem Qualifiers (1) Diabetes: Qualified Codes: E11.9 - Type 2 diabetes mellitus without complications (2) Anemia: Qualified Codes: N18.6 - End stage renal disease; D63.1 - Anemia in chronic kidney disease; Z99.2 - Dependence on renal dialysis Genesis Muse MD Feb 06, 2018 10:13
--- NOTE | 2018-02-06 10:46 | HHI.NPPN ---
Subjective General Problems: Hypertension Renal Failure: Chronic, End Stage Renal Disease Interval History Discharge on hod as patient's son is contesting his discharge. Review of Systems General Constitutional: Fatigue General Remarks generalized weakness Objective Data Data Vital Signs Date Time Temp Pulse Resp B/P (MAP) Pulse Ox O2 Delivery O2 Flow Rate FiO2 02/06/18 08:00 99.0 83 17 146/96 (113) 93 02/06/18 00:00 98.7 82 19 151/71 (97) 92 02/05/18 20:00 98.3 78 18 136/63 (87) 95 02/05/18 16:00 100.1 60 15 133/63 (86) 96 -: 02/06/18 0711 02/06/18 0711 Tubes & Lines: Perma-Cath Physical Exam General Appearance: Well Developed, Well Nourished, No Acute Distress, Comfortable Eyes Eye Exam: Sclera White Throat Throat Exam: Oral Mucosa [place] & Moist Neck Neck Exam: Neck Supple Pulmonary Resp Exam: Clear Bilaterally, Breath Sounds Equal, Decreased Bases Cardiology CV Exam: Regular, Normal Sinus Rhythm Gastrointestinal/Abdomen GI Exam: Soft, Non-Tender, Bowel Sounds Present, Positive Bowel Movement Musculoskeletal MS Exam: Joints Intact, Normal Tone, Unable to Ambulate Integumentary Skin Exam: Clear, Warm, Dry, Intact Extremeties Extremities Exam: No Edema, Pedal Pulses Palpable Neurologic Neuro Exam: Alert, Awake, Oriented, Speech Clear, Moving All Extremities Psychiatric Psych Exam: Appropriate Responses Assessment/Plan Discussed Condition With: Patient Assessment Summary: Anemia of CKD, Hypertension, End Stage Renal Disease Problem List: (1) ESRD (end stage renal disease) ICD Codes: N18.6 - End stage renal disease Status: Chronic Plan: We will continue dialytic support MWF during this admission, outpatient arrangements are in place in [facility] for discharge purposes.. He will follow with architectural renderer, Dr. Zamora. . Successful and non difficult cannulation of L AVF with one needle. Perm cath in place on left. Intermittently monitor labs Avoid IVF administration On high protein diet with supplements. His long-term prognosis is poor given multiple comorbidities. He is at risk for multiple complications including infection given his long-term indwelling CVC. He is also at risk for cardiac complications including arrhythmia, [place] and CVA. (2) Weakness ICD Codes: R53.1 - Weakness Status: Chronic Plan: Recent discharge from local SNF for same with inpatient rehab Needs PT/OT, he is deconditioned and seems unmotivated Neurology has evaluated, no acute etiology but has chronic issues that may be contributing. The son contested discharge, wants inpatient PT/OT. Disposition is not clear at this time. (3) Diabetes ICD Codes: E11.9 - Diabetes Status: Chronic Plan: Maintain glucose 140-180 mg/dL while hospitalized (4) Anemia ICD Codes: D64.9 - Anemia, unspecified Status: Acute Plan: On Venofer daily for a total of 10 doses also on Epogen with dialysis (5) HTN (hypertension) ICD Codes: I10 - Hypertension Status: Chronic Plan: Blood pressure is elevated. He had refused some PO medications yesterday. On amlodipine, hydralazine, and lisinopril. Plan He is cleared for discharge from renal standpoint. Problem Qualifiers (1) Diabetes: Qualified Codes: E11.9 - Type 2 diabetes mellitus without complications (2) Anemia: Qualified Codes: N18.6 - End stage renal disease; D63.1 - Anemia in chronic kidney disease; Z99.2 - Dependence on renal dialysis Sanju Cameron MD Feb 06, 2018 10:46
[2018-02-06] MEDS: BUMETANIDE 1 MG TAB PO SCH (11:22)
[2018-02-06] MEDS: PRAVASTATIN SOD 20 MG TAB PO SCH (11:23)
[2018-02-06] MEDS: amLODIPine BESYLATE 5 MG TAB PO SCH (11:23)
[2018-02-06] MEDS: ASPIRIN 325 MG TAB PO SCH (11:23)
[2018-02-06] MEDS: DOCUSATE SODIUM 50 MG/SENNA 8.6 MG TAB PO SCH ×2 (11:23→21:00)
[2018-02-06] MEDS: guaiFENesin E.R. 600 MG TAB PO SCH ×2 (11:23→22:15)
[2018-02-06] MEDS ORDERED: NAPHAZOLINE HCL 0.012% OPHT SOLN 15 ML BOTTLE EACH EYE PRN (16:30)
[2018-02-06] MEDS ORDERED: RESP: ALBUTEROL 2.5 MG/IPRATROPIUM 0.5 MG NEB (PRN) NEB (16:30)
[2018-02-06] MEDS: RESP: ALBUTEROL 2.5 MG/IPRATROPIUM 0.5 MG NEB (PRN) NEB (17:29)
[2018-02-07] VITALS (7 sets, daily range): BP systolic 142–175; BP diastolic 60–95; PULSE 72–84; RESP 18–19; TEMP 97.6–98.4; O2SAT 92–96
[2018-02-07] MEDS: hydrALAZINE HCL 25 MG TAB PO SCH ×3 (08:05→21:54)
[2018-02-07] MEDS: HEPARIN SODIUM - SQ 10,000 UNITS/ML VIAL SQ SCH ×3 (08:05→21:53)
[2018-02-07] MEDS: SODIUM CHLORIDE 0.9% FLUSH 10 ML FLUSH IV FLUSH SCH ×2 (08:51→21:54)
[2018-02-07] MEDS: IRON SUCROSE INJ 100 MG in SODIUM CHLORIDE 0.9% INJ 100 ML IV SCH (08:51)
[2018-02-07] MEDS: LISINOPRIL 20 MG TAB PO SCH ×2 (08:52→21:52)
[2018-02-07] MEDS: BUMETANIDE 1 MG TAB PO SCH (08:52)
[2018-02-07] MEDS: guaiFENesin E.R. 600 MG TAB PO SCH ×2 (08:52→21:54)
[2018-02-07] MEDS: ASPIRIN 325 MG TAB PO SCH (08:52)
[2018-02-07] MEDS: DOCUSATE SODIUM 50 MG/SENNA 8.6 MG TAB PO SCH ×2 (08:53→21:00)
[2018-02-07] MEDS: PRAVASTATIN SOD 20 MG TAB PO SCH (08:54)
[2018-02-07] MEDS: amLODIPine BESYLATE 5 MG TAB PO SCH (08:54)
--- NOTE | 2018-02-07 12:58 | HHI.NPPN ---
Subjective General Problems: Hypertension Renal Failure: Chronic, End Stage Renal Disease Interval History No new issues from renal standpoint. Review of Systems General Constitutional: Fatigue General Remarks generalized weakness Objective Data Data Vital Signs Date Time Temp Pulse Resp B/P (MAP) Pulse Ox O2 Delivery O2 Flow Rate FiO2 02/07/18 12:00 98.0 81 18 175/77 (109) 92 02/07/18 08:00 97.7 79 18 171/70 (103) 96 02/07/18 04:55 97.9 84 19 156/69 (98) 94 02/06/18 23:17 99.4 88 19 164/69 (100) 95 02/06/18 21:29 97 Nasal Cannula 2.00 02/06/18 20:00 100.0 88 18 169/77 (107) 97 02/06/18 17:32 97 Nasal Cannula 2.00 02/06/18 16:00 98.0 78 22 167/74 (105) 94 02/06/18 15:45 99.3 76 20 126/60 (82) 95 -: 02/06/18 0711 02/06/18 0711 Tubes & Lines: Perma-Cath Physical Exam General Appearance: Well Developed, Well Nourished, No Acute Distress, Comfortable Eyes Eye Exam: Sclera White Throat Throat Exam: Oral Mucosa [place] & Moist Neck Neck Exam: Neck Supple Pulmonary Resp Exam: Clear Bilaterally, Breath Sounds Equal, Decreased Bases Cardiology CV Exam: Regular, Normal Sinus Rhythm Gastrointestinal/Abdomen GI Exam: Soft, Non-Tender, Bowel Sounds Present, Positive Bowel Movement Musculoskeletal MS Exam: Joints Intact, Normal Tone, Unable to Ambulate Integumentary Skin Exam: Clear, Warm, Dry, Intact Extremeties Extremities Exam: No Edema, Pedal Pulses Palpable Neurologic Neuro Exam: Alert, Awake, Oriented, Speech Clear, Moving All Extremities Psychiatric Psych Exam: Appropriate Responses Assessment/Plan Discussed Condition With: Patient Assessment Summary: Anemia of CKD, Hypertension, End Stage Renal Disease Problem List: (1) ESRD (end stage renal disease) ICD Codes: N18.6 - End stage renal disease Status: Chronic Plan: We will continue dialytic support MWF during this admission, outpatient arrangements are in place in [facility] for discharge purposes.. He will follow with crime lab analyst, Dr. Zamora. . Successful and non difficult cannulation of L AVF with one needle. Perm cath in place on left. Intermittently monitor labs Avoid IVF administration On high protein diet with supplements. His longterm prognosis is poor given multiple comorbidities. 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 He is also at risk for cardiac complications including arrhythmia, [place] and CVA. (2) Weakness ICD Codes: R53.1 - Weakness Status: Chronic Plan: Recent discharge from local [facility] for same with inpatient rehab Needs PT/OT, he is deconditioned and seems unmotivated Neurology has evaluated, no acute etiology but has chronic issues that may be contributing. The son contested discharge, wants inpatient PT/OT. Disposition is not clear at this time. (3) Diabetes ICD Codes: E11.9 - Diabetes Status: Chronic Plan: Maintain glucose 140-180 mg/dL while hospitalized (4) Anemia ICD Codes: D64.9 - Anemia, unspecified Status: Acute Plan: On Venofer daily for a total of 10 doses also on Epogen with dialysis (5) HTN (hypertension) ICD Codes: I10 - Hypertension Status: Chronic Plan: Blood pressure is elevated. He had refused some PO medications yesterday. On amlodipine, hydralazine, and lisinopril. Plan He is cleared for discharge from renal standpoint. Problem Qualifiers (1) Diabetes: Qualified Codes: E11.9 - Type 2 diabetes mellitus without complications (2) Anemia: Qualified Codes: N18.6 - End stage renal disease; D63.1 - Anemia in chronic kidney disease; Z99.2 - Dependence on renal dialysis Sanju Cameron MD Feb 07, 2018 12:58
[2018-02-07] MEDS: cloNIDine HCL 0.1 MG TAB PO PRN (13:00)
--- NOTE | 2018-02-07 15:33 | HHI.PR ---
Subjective Remarks With some redness in his left eye, no feve rro chills. Some sob satting well on room air. No n/v/d/c. Objective Vitals Vital Signs Date Time Temp Pulse Resp B/P (MAP) Pulse Ox O2 Delivery O2 Flow Rate FiO2 02/07/18 12:00 98.0 81 18 175/77 (109) 92 02/07/18 08:00 97.7 79 18 171/70 (103) 96 02/07/18 04:55 97.9 84 19 156/69 (98) 94 02/06/18 23:17 99.4 88 19 164/69 (100) 95 02/06/18 21:29 97 Nasal Cannula 2.00 02/06/18 20:00 100.0 88 18 169/77 (107) 97 02/06/18 17:32 97 Nasal Cannula 2.00 02/06/18 16:00 98.0 78 22 167/74 (105) 94 02/06/18 15:45 99.3 76 20 126/60 (82) 95 I/O 02/06/18 02/06/18 02/06/18 02/07/18 02/07/18 02/07/18 07:00 15:00 23:00 07:00 15:00 23:00 Intake Total 700 ml 600 ml 480 ml Output Total 50 ml 100 ml Balance 650 ml 500 ml 480 ml Intake Oral 700 ml 600 ml 480 ml Output Urine Total 50 ml 100 ml # Voids 2 2 # Bowel Movements 1 2 0 Result Diagram: 02/06/18 0711 02/06/18 0711 Imaging Last Impressions Chest X-Ray 02/05/18 0000 Signed Impressions: Service Date/Time: Monday, February 05, 2018 17:07 - CONCLUSION: Mild central pulmonary congestion. Cardiomegaly. Abdulzaiz Brewer MD Objective Remarks GENERAL: Elderly male laying in bed in NAD. SKIN: Warm and dry. Permacath R chest. NECK: Supple no tender LAD or JVD. HEART: RRR no m/r/g. LUNGS: CTAB without wheezes or crackles. ABDOMEN: +BS, soft, NT, ND. EXTREMITIES: No LE edema. 1+ pedal pulses. AVF LUE with palpable thrill. NEURO: Awake and alert. Nonfocal. Procedures None A/P Problem List: (1) Weakness ICD Code: R53.1 - Weakness Status: Chronic (2) ESRD (end stage renal disease) ICD Code: N18.6 - End stage renal disease Status: Chronic (3) Diabetes ICD Code: E11.9 - Diabetes Status: Chronic (4) Anemia ICD Code: D64.9 - Anemia, unspecified Status: Acute Assessment and Plan 72 YOWM with ESRD on HD, neuropathy, poorly-controlled HTN, and CHF admitted on 01/29 after he was discharged home from SNF but his family felt that he was not ready to be at home as he was feeling weak, dizzy, and had generalized malaise. ESRD - Nephrology consulted - On HD MWF - Has AVF but not mature so using right chest Permacath - Avoid IV fluids and nephrotoxic agents - Renally dose medications Anemia of chronic disease On iron infusion On Epogen HTN Monitor closely Increase hydralazine 25 mg Q8H Resume Lisinopril Clonidine PRN Weakness/debility U/A negative and CXR with no consolidation, no signs of infection PT Case management assisting with D/C needs [facility]ed into [facility] but patient's father refusing to let him go there so looking for other options With nonproductive cough, CXR reviewed with mild congestion patient needs HD. On mucinex , add duonebs With redness in his left eye add eye drops , monitor. DVT prophylaxis: Heparin Discharge Planning needs SNF Note: discussed with patient's son Rivera does not want the patient to be discharged to a local SNF. Would like the patient to go to acute rehab however patient cannot follow any commands. He also wants Dr Dumont his neurology consulted. Consult neurology Dr Segovia per patient/son request. Seen by neuro and cleared for DC to follow up as OP with neuro. Also son called [employer] and is contesting discharge, for now DC is on hold. Discussed with CM, working with the son to get patient to SNF or rehab in [place] , son prefers inpatient rehab in [place] however patient might not meet criteria. Son contested discharge. Problem Qualifiers (1) Diabetes: Qualified Codes: E11.9 - Type 2 diabetes mellitus without complications (2) Anemia: Qualified Codes: N18.6 - End stage renal disease; D63.1 - Anemia in chronic kidney disease; Z99.2 - Dependence on renal dialysis Cosma,Genesis MD Feb 07, 2018 15:33
[2018-02-07] MEDS: RESP: ALBUTEROL 2.5 MG/IPRATROPIUM 0.5 MG NEB (PRN) NEB (22:11)
[2018-02-08 04:00] VITALS: BP 169/77; PULSE 77; RESP 21; TEMP 97.6; O2SAT 96
[2018-02-08] MEDS: hydrALAZINE HCL 25 MG TAB PO SCH ×3 (05:48→21:35)
[2018-02-08] MEDS: BENZONATATE 100 MG CAP PO PRN (05:48)
[2018-02-08] MEDS: HEPARIN SODIUM - SQ 10,000 UNITS/ML VIAL SQ SCH ×3 (05:52→21:35)
[2018-02-08 08:00] VITALS: BP 167/70; PULSE 76; RESP 16; TEMP 98; O2SAT 97
--- NOTE | 2018-02-08 08:14 | HHI.NPPN ---
Subjective General Problems: Hypertension Renal Failure: Chronic, End Stage Renal Disease Interval History To have HD today. We will attempt to use AVF today. Review of Systems General Constitutional: Fatigue General Remarks generalized weakness Objective Data Data Vital Signs Date Time Temp Pulse Resp B/P (MAP) Pulse Ox O2 Delivery O2 Flow Rate FiO2 02/08/18 04:00 97.6 77 21 169/77 (107) 96 02/07/18 23:10 98.4 75 19 149/60 (89) 95 02/07/18 22:11 96 Nasal Cannula 2.00 02/07/18 20:50 97.6 75 19 163/95 (117) 94 02/07/18 16:00 97.7 72 18 142/65 (90) 95 02/07/18 12:00 98.0 81 18 175/77 (109) 92 -: 02/06/18 0711 02/06/18 0711 Tubes & Lines: Perma-Cath Physical Exam General Appearance: Well Developed, Well Nourished, No Acute Distress, Comfortable Eyes Eye Exam: Sclera White Throat Throat Exam: Oral Mucosa [place] & Moist Neck Neck Exam: Neck Supple Pulmonary Resp Exam: Clear Bilaterally, Breath Sounds Equal, Decreased Bases Cardiology CV Exam: Regular, Normal Sinus Rhythm Gastrointestinal/Abdomen GI Exam: Soft, Non-Tender, Bowel Sounds Present, Positive Bowel Movement Musculoskeletal MS Exam: Joints Intact, Normal Tone, Unable to Ambulate Integumentary Skin Exam: Clear, Warm, Dry, Intact Extremeties Extremities Exam: No Edema, Pedal Pulses Palpable Neurologic Neuro Exam: Alert, Awake, Oriented, Speech Clear, Moving All Extremities Psychiatric Psych Exam: Appropriate Responses Assessment/Plan Discussed Condition With: Patient Assessment Summary: Anemia of CKD, Hypertension, End Stage Renal Disease Problem List: (1) ESRD (end stage renal disease) ICD Codes: N18.6 - End stage renal disease Status: Chronic Plan: We will continue dialytic support MWF during this admission, outpatient arrangements are in place in [facility] for discharge purposes.. He will follow with human services professional, Dr. Zamora. . We will attempt to use AVF again today. Intermittently monitor labs Avoid IVF administration On high protein diet with supplements. His correction prognosis is poor given multiple comorbidities. He is at risk for multiple complications including infection given his correction indwelling CVC. He is also at risk for cardiac complications including arrhythmia, MS and CVA. (2) Weakness ICD Codes: R53.1 - Weakness Status: Chronic Plan: Recent discharge from local SNF for same with inpatient rehab Needs PT/OT, he is deconditioned and seems unmotivated Neurology has evaluated, no acute etiology but has chronic issues that may be contributing. The son contested discharge, wants inpatient PT/OT. Disposition is not clear at this time. (3) Diabetes ICD Codes: E11.9 - Diabetes Status: Chronic Plan: Maintain glucose 140-180 mg/dL while hospitalized (4) Anemia ICD Codes: D64.9 - Anemia, unspecified Status: Acute Plan: On Venofer daily for a total of 10 doses also on Epogen with dialysis (5) HTN (hypertension) ICD Codes: I10 - Hypertension Status: Chronic Plan: Blood pressure is elevated. He had refused some PO medications yesterday. On amlodipine, hydralazine, and lisinopril. Plan He is cleared for discharge from renal standpoint. Problem Qualifiers (1) Diabetes: Qualified Codes: E11.9 - Type 2 diabetes mellitus without complications (2) Anemia: Qualified Codes: N18.6 - End stage renal disease; D63.1 - Anemia in chronic kidney disease; Z99.2 - Dependence on renal dialysis Sanju Cameron MD Feb 08, 2018 08:14
[2018-02-08] MEDS: DOCUSATE SODIUM 50 MG/SENNA 8.6 MG TAB PO SCH ×2 (09:00→21:24)
[2018-02-08] MEDS: HEPARIN SODIUM - IV 10,000 UNITS/10 ML VIAL PRN (12:11)
[2018-02-08] MEDS: EPOETIN ALFA 10,000 UNITS/ML VIAL IV PUSH PRN (12:11)
[2018-02-08] MEDS: IRON SUCROSE INJ 100 MG in SODIUM CHLORIDE 0.9% INJ 100 ML IV SCH ×2 (12:11→15:44)
[2018-02-08] MEDS: GENTAMICIN SULFATE 20 MG/2 ML VIAL OTHER PRN (12:12)
--- NOTE | 2018-02-08 14:15 | HHI.PR ---
Subjective Remarks Patient went for dialysis early in the morning. Was seen late this afternoon after dialysis. Walking with physical therapy. Some shortness of breath not much cough. No fever or chills no nausea vomiting or diarrhea or constipation. Did not eat breakfast. Objective Vitals Vital Signs Date Time Temp Pulse Resp B/P (MAP) Pulse Ox O2 Delivery O2 Flow Rate FiO2 02/08/18 08:00 98.0 76 16 167/70 (102) 97 02/08/18 04:00 97.6 77 21 169/77 (107) 96 02/07/18 23:10 98.4 75 19 149/60 (89) 95 02/07/18 22:11 96 Nasal Cannula 2.00 02/07/18 20:50 97.6 75 19 163/95 (117) 94 02/07/18 16:00 97.7 72 18 142/65 (90) 95 I/O 02/07/18 02/07/18 02/07/18 02/08/18 02/08/18 02/08/18 07:00 15:00 23:00 07:00 15:00 23:00 Intake Total 480 ml 360 ml Output Total 4000 ml Balance 480 ml 360 ml -4000 ml Intake Oral 480 ml 360 ml Hemodialysis 4000 ml # Voids 2 3 2 # Bowel Movements 0 3 0 Result Diagram: 02/06/18 0711 02/06/18 0711 Imaging Last Impressions Chest X-Ray 02/05/18 0000 Signed Impressions: Service Date/Time: Monday, February 05, 2018 17:07 - CONCLUSION: Mild central pulmonary congestion. Cardiomegaly. Abdulaziz Brewer MD Objective Remarks GENERAL: Elderly male laying in bed in NAD. SKIN: Warm and dry. Permacath R chest. NECK: Supple no tender LAD or JVD. HEART: RRR no m/r/g. LUNGS: CTAB without wheezes or crackles. ABDOMEN: +BS, soft, NT, ND. EXTREMITIES: No LE edema. 1+ pedal pulses. AVF LUE with palpable thrill. NEURO: Awake and alert. Nonfocal. Procedures None A/P Problem List: (1) Weakness ICD Code: R53.1 - Weakness Status: Chronic (2) ESRD (end stage renal disease) ICD Code: N18.6 - End stage renal disease Status: Chronic (3) Diabetes ICD Code: E11.9 - Diabetes Status: Chronic (4) Anemia ICD Code: D64.9 - Anemia, unspecified Status: Acute Assessment and Plan 72 YOWM with ESRD on HD, neuropathy, poorly-controlled HTN, and CHF admitted on 01/29 after he was discharged home from SNF but his family felt that he was not ready to be at home as he was feeling weak, dizzy, and had generalized malaise. ESRD - Nephrology consulted - On HD MWF - Has AVF but not mature so using right chest Permacath - Avoid IV fluids and nephrotoxic agents - Renally dose medications Anemia of chronic disease On iron infusion On Epogen HTN Monitor closely Increase hydralazine 25 mg Q8H Resume Lisinopril Clonidine PRN Weakness/debility U/A negative and CXR with no consolidation, no signs of infection PT Case management assisting with D/C needs [facility]ed into [facility] but patient's father refusing to let him go there so looking for other options With nonproductive cough, CXR reviewed with mild congestion patient needs HD. On mucinex , add duonebs With redness in his left eye add eye drops , monitor. DVT prophylaxis: Heparin Discharge Planning needs SNF Note: discussed with patient's son Rivera does not want the patient to be discharged to a local SNF. Would like the patient to go to acute rehab however patient cannot follow any commands. He also wants Dr Dumont his neurology consulted. Consult neurology Dr Segovia per patient/son request. Seen by neuro and cleared for DC to follow up as OP with neuro. Also son called [employer] and is contesting discharge, for now DC is on hold. Discussed with CM, working with the son to get patient to SNF or rehab in [place] , son prefers inpatient rehab in [place] however patient might not meet criteria. Son contested discharge. Discussed with the CM, plan to DC to SNF , arrangements pending as patient need HD as well. Also ordered LFTs Problem Qualifiers (1) Diabetes: Qualified Codes: E11.9 - Type 2 diabetes mellitus without complications (2) Anemia: Qualified Codes: N18.6 - End stage renal disease; D63.1 - Anemia in chronic kidney disease; Z99.2 - Dependence on renal dialysis Genesis Muse MD Feb 08, 2018 14:15
[2018-02-08 15:14] VITALS: O2SAT 96
[2018-02-08] MEDS: BUMETANIDE 1 MG TAB PO SCH (15:43)
[2018-02-08] MEDS: guaiFENesin E.R. 600 MG TAB PO SCH (15:44)
[2018-02-08] MEDS: PRAVASTATIN SOD 20 MG TAB PO SCH (15:44)
[2018-02-08] MEDS: amLODIPine BESYLATE 5 MG TAB PO SCH (15:44)
[2018-02-08] MEDS: LISINOPRIL 20 MG TAB PO SCH ×2 (15:44→21:24)
[2018-02-08] MEDS: ASPIRIN 325 MG TAB PO SCH (15:44)
[2018-02-08] MEDS: SODIUM CHLORIDE 0.9% FLUSH 10 ML FLUSH IV FLUSH SCH ×2 (15:45→21:28)
[2018-02-08 16:00] VITALS: BP 143/64; PULSE 83; RESP 16; TEMP 98; O2SAT 98
[2018-02-08 16:55] LABS: ALBUMIN 3.3 GM/DL (3.4-5.0); DIRECT BILIRUBIN ADULT 0.3 MG/DL (0.0-0.2)
[2018-02-08 16:57] LABS: INDIRECT BILIRUBIN 0.4 MG/DL (0.0-0.8); TOTAL BILIRUBIN ADULT 0.7 MG/DL (0.2-1.0); TOTAL PROTEIN 7.2 GM/DL (6.4-8.2)
[2018-02-08 20:18] VITALS: BP 137/63; PULSE 75; RESP 21; TEMP 97.5; O2SAT 97
[2018-02-08 22:44] VITALS: BP 115/56; PULSE 79; RESP 18; TEMP 97.4; O2SAT 97
[2018-02-09] MEDS: hydrALAZINE HCL 25 MG TAB PO SCH ×3 (06:03→22:19)
[2018-02-09] MEDS: HEPARIN SODIUM - SQ 10,000 UNITS/ML VIAL SQ SCH ×3 (06:03→22:22)
[2018-02-09 08:00] VITALS: BP 160/58; PULSE 74; RESP 17; TEMP 98.1; O2SAT 95
[2018-02-09] MEDS: SODIUM CHLORIDE 0.9% FLUSH 10 ML FLUSH IV FLUSH SCH ×2 (09:06→22:19)
[2018-02-09] MEDS: IRON SUCROSE INJ 100 MG in SODIUM CHLORIDE 0.9% INJ 100 ML IV SCH (09:06)
[2018-02-09] MEDS: PRAVASTATIN SOD 20 MG TAB PO SCH (09:07)
[2018-02-09] MEDS: DOCUSATE SODIUM 50 MG/SENNA 8.6 MG TAB PO SCH ×2 (09:07→22:19)
[2018-02-09] MEDS: BUMETANIDE 1 MG TAB PO SCH (09:08)
[2018-02-09] MEDS: ASPIRIN 325 MG TAB PO SCH (09:08)
[2018-02-09] MEDS: amLODIPine BESYLATE 5 MG TAB PO SCH (09:09)
[2018-02-09] MEDS: LISINOPRIL 20 MG TAB PO SCH ×2 (09:09→22:19)
--- NOTE | 2018-02-09 10:14 | HHI.PR ---
Subjective Remarks In nad. No fever or chills. Feels improving some today. Satign well on room air. Objective Vitals Vital Signs Date Time Temp Pulse Resp B/P (MAP) Pulse Ox O2 Delivery O2 Flow Rate FiO2 02/09/18 08:00 98.1 74 17 160/58 (92) 95 02/08/18 22:44 97.4 79 18 115/56 (75) 97 02/08/18 20:18 97.5 75 21 137/63 (87) 97 02/08/18 16:00 98.0 83 16 143/64 (90) 98 02/08/18 15:14 96 Nasal Cannula 2.00 I/O 02/08/18 02/08/18 02/08/18 02/09/18 02/09/18 02/09/18 07:00 15:00 23:00 07:00 15:00 23:00 Intake Total 360 ml 720 ml 480 ml Output Total 4000 ml 500 ml Balance 360 ml -4000 ml 220 ml 480 ml Intake Oral 360 ml 720 ml 480 ml Output Urine Total 500 ml Hemodialysis 4000 ml # Voids 2 1 # Bowel Movements 0 0 Result Diagram: 02/06/18 0711 02/06/18 0711 Imaging Last Impressions Chest X-Ray 02/05/18 0000 Signed Impressions: Service Date/Time: Monday, February 05, 2018 17:07 - CONCLUSION: Mild central pulmonary congestion. Cardiomegaly. Abdulaziz Brewer MD Objective Remarks GENERAL: Elderly male laying in bed in NAD. SKIN: Warm and dry. Permacath R chest. NECK: Supple no tender LAD or JVD. HEART: RRR no m/r/g. LUNGS: CTAB without wheezes or crackles. ABDOMEN: +BS, soft, NT, ND. EXTREMITIES: No LE edema. 1+ pedal pulses. AVF LUE with palpable thrill. NEURO: Awake and alert. Nonfocal. Procedures None A/P Problem List: (1) Weakness ICD Code: R53.1 - Weakness Status: Chronic (2) ESRD (end stage renal disease) ICD Code: N18.6 - End stage renal disease Status: Chronic (3) Diabetes ICD Code: E11.9 - Diabetes Status: Chronic (4) Anemia ICD Code: D64.9 - Anemia, unspecified Status: Acute Assessment and Plan 72 YOWM with ESRD on HD, neuropathy, poorly-controlled HTN, and CHF admitted on 01/29 after he was discharged home from SNF but his family felt that he was not ready to be at home as he was feeling weak, dizzy, and had generalized malaise. ESRD - Nephrology consulted - On HD MWF - Has AVF but not mature so using right chest Permacath - Avoid IV fluids and nephrotoxic agents - Renally dose medications Anemia of chronic disease On iron infusion On Epogen HTN Monitor closely Increase hydralazine 25 mg Q8H Resume Lisinopril Clonidine PRN Weakness/debility U/A negative and CXR with no consolidation, no signs of infection PT Case management assisting with D/C needs [facility]ed into [facility] but patient's father refusing to let him go there so looking for other options With nonproductive cough, CXR reviewed with mild congestion patient needs HD. On mucinex , add duonebs With redness in his left eye add eye drops , monitor. DVT prophylaxis: Heparin Discharge Planning needs SNF Note: discussed with patient's son Rivera does not want the patient to be discharged to a local SNF. Would like the patient to go to acute rehab however patient cannot follow any commands. He also wants Dr Dumont his neurology consulted. Consult neurology Dr Segovia per patient/son request. Seen by neuro and cleared for DC to follow up as OP with neuro. Also son called [employer] and is contesting discharge, for now DC is on hold. Discussed with CM, working with the son to get patient to SNF or rehab in [place] , son prefers inpatient rehab in [place] however patient might not meet criteria. Son contested discharge. Discussed with the CM, plan to DC to SNF , arrangements pending as patient need HD as well. Also ordered Hep panel Problem Qualifiers (1) Diabetes: Qualified Codes: E11.9 - Type 2 diabetes mellitus without complications (2) Anemia: Qualified Codes: N18.6 - End stage renal disease; D63.1 - Anemia in chronic kidney disease; Z99.2 - Dependence on renal dialysis Genesis Muse MD Feb 09, 2018 10:14
[2018-02-09 11:27] VITALS: BP 181/77; PULSE 80; RESP 18; TEMP 97.8; O2SAT 99
[2018-02-09] MEDS: cloNIDine HCL 0.1 MG TAB PO PRN (12:02)
--- NOTE | 2018-02-09 13:05 | HHI.NPPN ---
Subjective General Problems: Hypertension Renal Failure: Chronic, End Stage Renal Disease Interval History Sitting on edge of bed eating breakfast. No new issues. (Stacey Grace) Review of Systems General Constitutional: Fatigue General Remarks generalized weakness (Stacey Grace) Objective Data Data 02/09/18 02/10/18 19:00 07:00 Intake Total 585 ml Balance 585 ml Intake Oral 480 ml IV Total 105 ml # Voids 1 # Bowel Movements 0 Vital Signs Date Time Temp Pulse Resp B/P (MAP) Pulse Ox O2 Delivery O2 Flow Rate FiO2 02/09/18 11:27 97.8 80 18 181/77 (111) 99 02/09/18 08:00 98.1 74 17 160/58 (92) 95 02/08/18 22:44 97.4 79 18 115/56 (75) 97 02/08/18 20:18 97.5 75 21 137/63 (87) 97 02/08/18 16:00 98.0 83 16 143/64 (90) 98 02/08/18 15:14 96 Nasal Cannula 2.00 (Stacey Grace) -: 02/06/18 0711 02/06/18 0711 Tubes & Lines: Perma-Cath (Stacey Grace) Physical Exam General Appearance: Well Developed, Well Nourished, No Acute Distress, Comfortable (Stacey Grace) Eyes Eye Exam: Sclera White (Stacey Grace) Throat Throat Exam: Oral Mucosa [place] & Moist (Stacey Grace) Neck Neck Exam: Neck Supple (Stacey Grace) Pulmonary Resp Exam: Clear Bilaterally, Breath Sounds Equal, Decreased Bases (Stacey Grace) Cardiology CV Exam: Regular, Normal Sinus Rhythm (Stacey Grace) Gastrointestinal/Abdomen GI Exam: Soft, Non-Tender, Bowel Sounds Present, Positive Bowel Movement (Stacey Grace) Musculoskeletal MS Exam: Joints Intact, Normal Tone, Unable to Ambulate MS Remarks generalized weakness (Stacey Grace) Integumentary Skin Exam: Clear, Warm, Dry, Intact (Stacey Grace) Extremeties Extremities Exam: No Edema, Pedal Pulses Palpable (Stacey Grace) Neurologic Neuro Exam: Alert, Awake, Oriented, Speech Clear, Moving All Extremities (Stacey Grace) Psychiatric Psych Exam: Appropriate Responses (Stacey Grace) Assessment/Plan Discussed Condition With: Patient Assessment Summary: Anemia of CKD, Hypertension, End Stage Renal Disease Problem List: (1) ESRD (end stage renal disease) ICD Codes: N18.6 - End stage renal disease Status: Chronic Plan: We will continue dialytic support MWF during this admission, outpatient arrangements are in place in [facility] for discharge purposes.. He will follow with cooky packer, Dr. Zamora. . We will attempt to use AVF tomorrow with 2 needles. If successful consider removing permcath. Intermittently monitor labs Avoid IVF administration On high protein diet with supplements. He is not on phosphorus binders. His penitentiary prognosis is poor given multiple comorbidities. He is at risk for multiple complications including infection given his terminal gauger indwelling CVC. He is also at risk for cardiac complications including arrhythmia, ID and CVA. (2) Weakness ICD Codes: R53.1 - Weakness Status: Chronic Plan: Recent discharge from local SNF for same with inpatient rehab Needs PT/OT, he is deconditioned and seems unmotivated Neurology has evaluated, no acute etiology but has chronic issues that may be contributing. The son contested discharge, wants inpatient PT/OT. Disposition is not clear at this time. (3) Diabetes ICD Codes: E11.9 - Diabetes Status: Chronic Plan: Maintain glucose 140-180 mg/dL while hospitalized (4) Anemia ICD Codes: D64.9 - Anemia, unspecified Status: Acute Plan: On Venofer daily for a total of 10 doses also on Epogen with dialysis (5) HTN (hypertension) ICD Codes: I10 - Hypertension Status: Chronic Plan: Blood pressure improved On amlodipine, hydralazine, and lisinopril. Plan He is cleared for discharge from renal standpoint. (Stacey Grace) Plan patient was seen and examined. Agree with above assessment and plan. (Sanju Cameron MD) Problem Qualifiers (1) Diabetes: Qualified Codes: E11.9 - Type 2 diabetes mellitus without complications (2) Anemia: Qualified Codes: N18.6 - End stage renal disease; D63.1 - Anemia in chronic kidney disease; Z99.2 - Dependence on renal dialysis Stacey Grace Feb 09, 2018 13:05 Sanju Cameron MD Feb 10, 2018 09:16
[2018-02-09 13:26] VITALS: BP 140/62; PULSE 72
[2018-02-09 16:00] VITALS: BP 162/67; PULSE 72; RESP 17; TEMP 97.6; O2SAT 94
[2018-02-09 18:02] VITALS: O2SAT 94
[2018-02-09 20:00] VITALS: BP 163/75; PULSE 69; RESP 17; TEMP 97.6; O2SAT 97
--- NOTE | 2018-02-09 20:06 | HHI.DS ---
Discharge Summary Admission Date Jan 29, 2018 at 01:55 Discharge Date: Feb 11, 2018 Admitting Diagnosis hypoxia , anemia, SOB (1) Weakness ICD Code: R53.1 - Weakness Diagnosis: Secondary Status: Chronic (2) ESRD (end stage renal disease) ICD Code: N18.6 - End stage renal disease Diagnosis: Principal Status: Chronic (3) Diabetes ICD Code: E11.9 - Diabetes Diagnosis: Principal Status: Chronic (4) Anemia ICD Code: D64.9 - Anemia, unspecified Diagnosis: Secondary Status: Acute Procedures None Brief History - From Admission The patient is a 71-year-old male with history of diabetes, hypertension, peripheral neuropathy who [facility] Family came in upset feeling he is not stable enough to go home. The patient is a poor historian so most of this history is obtained from medical records. As per ED medical records the patient had been home for about 12 hours and he was feeling weak, dizzy and had generalized malaise. They called the insurance company who said that they have been discharge due to insurance issues and that he needed to return to the ER. Patient was complaining of shortness of breath, dizziness, weakness. At the moment of my interview the patient still complains of weakness, however denies chest pain, shortness of breath, nausea, vomiting, diarrhea, fevers, chills, dysuria. CBC/BMP: 02/06/18 0711 02/06/18 0711 Significant Findings Laboratory Tests Test 02/08/18 15:43 02/09/18 11:20 Direct Bilirubin 0.3 MG/DL (0.0-0.2) Albumin 3.3 GM/DL (3.4-5.0) PE at Discharge GENERAL: Elderly male laying in bed in NAD. SKIN: Warm and dry. Permacath R chest. NECK: Supple no tender LAD or JVD. HEART: RRR no m/r/g. LUNGS: CTAB without wheezes or crackles. ABDOMEN: +BS, soft, NT, ND. EXTREMITIES: No LE edema. 1+ pedal pulses. AVF LUE with palpable thrill. NEURO: Awake and alert. Nonfocal. Hospital Course 72 YOWM with ESRD on HD, neuropathy, poorly-controlled HTN, and CHF admitted on 01/29 after he was discharged home from SNF but his family felt that he was not ready to be at home as he was feeling weak, dizzy, and had generalized malaise. ESRD - Nephrology consulted - On HD MWF - Has AVF but not mature so using right chest Permacath - Avoid IV fluids and nephrotoxic agents - Renally dose medications -Labs in AM Anemia of chronic disease -On iron infusion -On Epogen HTN -Monitor closely -Cont hydralazine 25 mg Q8H, hold if SBP<100 -Resume Lisinopril -Clonidine PRN Weakness/debility -U/A negative and CXR with no consolidation, no signs of infection -Cont PT -Case management assisting with D/C needs -Accepted into [facility] but patient's son refusing to let him go there so looking for other options, Son is requesting rehab in [place]. nonproductive cough CXR reviewed with mild congestion patient needs HD. -Cont mucinex , and duonebs With redness in his left eye add eye drops , monitor. PATIENT CAN NOW BE DISCHARGED BACK TO SNF TO RESUME OUTPATIENT DIALYSIS ON THURSDAY, THURSDAY AND THURSDAY DC TO SNF Pt Condition on Discharge: Good Discharge Disposition: Discharge to SNF Discharge Time: > 30 minutes Discharge Instructions DIET: Follow Instructions for: Heart Healthy Diet, Renal Failure Diet Speech Therapy-Diet Recommends: Regular Activities you can perform: Regular-No Restrictions Follow up Referrals: Nephrology - 3-5 Days PCP Follow-up - 2-3 Days New Medications: Hydralazine HCl (Hydralazine HCl) 25 Mg Tablet 25 MG PO Q8HR for htn, #90 TAB Continued Medications: Aspirin DR (Aspirin EC) 81 Mg Tabdr 81 MG PO DAILY for prevent stroke for 30 Days, TAB 0 Refills Start after completing one month of aspirin 325mg daily. Bumetanide (Bumetanide) 2 Mg Tab 2 MG PO Sat, Sun, Tues, Thur, TAB 0 Refills Lisinopril (Lisinopril) 10 Mg Tab 10 MG PO BID, #30 TAB 0 Refills Lovastatin (Lovastatin) 20 Mg Tab 20 MG PO DAILY for Cholesterol Management, #30 TAB 0 Refills Discontinued Medications: Aspirin (Aspirin) 325 Mg Tab 325 MG PO DAILY for heart/ prevent stroke for 30 Days, TAB after one Month, switch to 81 mg by mouth daily. Genesis Muse MD Feb 09, 2018 20:06 Tod Avila DO Feb 11, 2018 15:58
[2018-02-10 03:11] VITALS: BP 149/99; PULSE 74; RESP 18; TEMP 98.1; O2SAT 92
[2018-02-10] MEDS: hydrALAZINE HCL 25 MG TAB PO SCH ×3 (06:03→22:49)
[2018-02-10] MEDS: HEPARIN SODIUM - SQ 10,000 UNITS/ML VIAL SQ SCH ×3 (06:05→22:49)
[2018-02-10 07:42] VITALS: BP 148/67; PULSE 67; RESP 18; TEMP 98.3; O2SAT 95
[2018-02-10] MEDS: PRAVASTATIN SOD 20 MG TAB PO SCH (09:00)
[2018-02-10] MEDS: BUMETANIDE 1 MG TAB PO SCH (09:00)
[2018-02-10] MEDS: amLODIPine BESYLATE 5 MG TAB PO SCH (09:00)
[2018-02-10] MEDS: DOCUSATE SODIUM 50 MG/SENNA 8.6 MG TAB PO SCH ×2 (09:00→20:30)
[2018-02-10] MEDS: ASPIRIN 325 MG TAB PO SCH (09:00)
[2018-02-10] MEDS: LISINOPRIL 20 MG TAB PO SCH ×2 (09:00→20:30)
--- NOTE | 2018-02-10 11:40 | HHI.NPPN ---
Subjective General Problems: Hypertension Renal Failure: Chronic, End Stage Renal Disease Interval History Seen in dialysis. They are attempting to cannulate AVF with two needles. (Stacey Grace) Review of Systems General Constitutional: Fatigue General Remarks generalized weakness (Stacey Grace) Objective Data Data Vital Signs Date Time Temp Pulse Resp B/P (MAP) Pulse Ox O2 Delivery O2 Flow Rate FiO2 02/10/18 07:42 98.3 67 18 148/67 (94) 95 02/10/18 03:11 98.1 74 18 149/99 (116) 92 02/09/18 20:00 97.6 69 17 163/75 (104) 97 02/09/18 18:02 94 Nasal Cannula 2.00 02/09/18 16:00 97.6 72 17 162/67 (98) 94 02/09/18 13:26 72 140/62 (88) (Stacey Grace) -: 02/06/18 0711 02/06/18 0711 Tubes & Lines: Perma-Cath (Stacey Grace) Physical Exam General Appearance: Well Developed, Well Nourished, No Acute Distress, Comfortable (Stacey Grace) Eyes Eye Exam: Sclera White (Stacey Grace) Throat Throat Exam: Oral Mucosa Curtis & Moist (Stacey Grace) Neck Neck Exam: Neck Supple (Stacey Grace) Pulmonary Resp Exam: Clear Bilaterally, Breath Sounds Equal, Decreased Bases (Stacey Grace) Cardiology CV Exam: Regular, Normal Sinus Rhythm (Stacey Grace) Gastrointestinal/Abdomen GI Exam: Soft, Non-Tender, Bowel Sounds Present, Positive Bowel Movement (Stacey Grace) Musculoskeletal MS Exam: Joints Intact, Normal Tone, Unable to Ambulate MS Remarks generalized weakness (Stacey Grace) Integumentary Skin Exam: Clear, Warm, Dry, Intact (Stacey Grace) Extremeties Extremities Exam: No Edema, Pedal Pulses Palpable (Stacey Grace) Neurologic Neuro Exam: Alert, Awake, Oriented, Speech Clear, Moving All Extremities (Stacey Grace) Psychiatric Psych Exam: Appropriate Responses (Stacey Grace) Assessment/Plan Discussed Condition With: Patient Assessment Summary: Anemia of CKD, Hypertension, End Stage Renal Disease Problem List: (1) ESRD (end stage renal disease) ICD Codes: N18.6 - End stage renal disease Status: Chronic Plan: We will continue dialytic support MWF during this admission, outpatient arrangements are in place in [facility] for discharge purposes.. He will follow with front end developer javascript html css, Dr. Zamora. . We will attempt to use AVF today with 2 needles. If successful consider removing permcath. Dialysis today on a 2K, 350 BFR, goal 2L Intermittently monitor labs Avoid IVF administration On high protein diet with supplements. He is not on phosphorus binders. His care home prognosis is poor given multiple comorbidities. He is at risk for multiple complications including infection given his care home indwelling CVC. He is also at risk for cardiac complications including arrhythmia, [place] and CVA. (2) Weakness ICD Codes: R53.1 - Weakness Status: Chronic Plan: Recent discharge from local SNF for same with inpatient rehab Needs PT/OT, he is deconditioned and seems unmotivated Neurology has evaluated, no acute etiology but has chronic issues that may be contributing. The son contested discharge, wants inpatient PT/OT. Disposition will be to SNF in [place]. (3) Diabetes ICD Codes: E11.9 - Diabetes Status: Chronic Plan: Maintain glucose 140-180 mg/dL while hospitalized (4) Anemia ICD Codes: D64.9 - Anemia, unspecified Status: Acute Plan: On Venofer also on Epogen with dialysis (5) HTN (hypertension) ICD Codes: I10 - Hypertension Status: Chronic Plan: Blood pressure improved On amlodipine, hydralazine, and lisinopril. (Stacey Grace) Plan patient was seen and examined. Agree with above assessment and plan. He is cleared for discharge from renal standpoint. (Sanju Cameron MD) Problem Qualifiers (1) Diabetes: Qualified Codes: E11.9 - Type 2 diabetes mellitus without complications (2) Anemia: Qualified Codes: N18.6 - End stage renal disease; D63.1 - Anemia in chronic kidney disease; Z99.2 - Dependence on renal dialysis Stacey Grace Feb 10, 2018 11:40 Sanju Cameron MD Feb 10, 2018 21:28
--- NOTE | 2018-02-10 15:07 | HHI.PR ---
Subjective Remarks The patient is in the chair he appears not acute distress at this time. Says some shortness of breath however satting on room air nausea vomiting no constipation. Intermittent cough nonproductive. Had dialysis today. Objective Vitals Vital Signs Date Time Temp Pulse Resp B/P (MAP) Pulse Ox O2 Delivery O2 Flow Rate FiO2 02/10/18 07:42 98.3 67 18 148/67 (94) 95 02/10/18 03:11 98.1 74 18 149/99 (116) 92 02/09/18 20:00 97.6 69 17 163/75 (104) 97 02/09/18 18:02 94 Nasal Cannula 2.00 02/09/18 16:00 97.6 72 17 162/67 (98) 94 I/O 02/09/18 02/09/18 02/09/18 02/10/18 02/10/18 02/10/18 07:00 15:00 23:00 07:00 15:00 23:00 Intake Total 585 ml 480 ml 480 ml Output Total 200 ml 3000 ml Balance 585 ml 480 ml 280 ml -3000 ml Intake Oral 480 ml 480 ml 480 ml IV Total 105 ml Output Urine Total 200 ml Hemodialysis 3000 ml # Voids 1 2 # Bowel Movements 0 1 1 Result Diagram: 02/06/18 0711 02/06/18 0711 Imaging Last Impressions Chest X-Ray 02/05/18 0000 Signed Impressions: Service Date/Time: Monday, February 05, 2018 17:07 - CONCLUSION: Mild central pulmonary congestion. Cardiomegaly. Abdulaziz Brewer MD Objective Remarks GENERAL: Elderly male laying in bed in NAD. SKIN: Warm and dry. Permacath R chest. NECK: Supple no tender LAD or JVD. HEART: RRR no m/r/g. LUNGS: CTAB without wheezes or crackles. ABDOMEN: +BS, soft, NT, ND. EXTREMITIES: No LE edema. 1+ pedal pulses. AVF LUE with palpable thrill. NEURO: Awake and alert. Nonfocal. Procedures None A/P Problem List: (1) Weakness ICD Code: R53.1 - Weakness Status: Chronic (2) ESRD (end stage renal disease) ICD Code: N18.6 - End stage renal disease Status: Chronic (3) Diabetes ICD Code: E11.9 - Diabetes Status: Chronic (4) Anemia ICD Code: D64.9 - Anemia, unspecified Status: Acute Assessment and Plan 72 YOWM with ESRD on HD, neuropathy, poorly-controlled HTN, and CHF admitted on 01/29 after he was discharged home from SNF but his family felt that he was not ready to be at home as he was feeling weak, dizzy, and had generalized malaise. ESRD - Nephrology consulted - On HD MWF - Has AVF but not mature so using right chest Permacath - Avoid IV fluids and nephrotoxic agents - Renally dose medications Anemia of chronic disease On iron infusion On Epogen HTN Monitor closely Increase hydralazine 25 mg Q8H Resume Lisinopril Clonidine PRN Weakness/debility U/A negative and CXR with no consolidation, no signs of infection PT Case management assisting with D/C needs Accepted into [facility] but patient's father refusing to let him go there so looking for other options With nonproductive cough, CXR reviewed with mild congestion patient needs HD. On mucinex , add duonebs With redness in his left eye add eye drops , monitor. DVT prophylaxis: Heparin Discharge Planning needs SNF Note: discussed with patient's son Rivera does not want the patient to be discharged to a local SNF. Would like the patient to go to acute rehab however patient cannot follow any commands. He also wants Dr Dumont his neurology consulted. Consult neurology Dr Segovia per patient/son request. Seen by neuro and cleared for DC to follow up as OP with neuro. Also son called [employer] and is contesting discharge, for now DC is on hold. Discussed with CM, working with the son to get patient to SNF or rehab in [place] , son prefers inpatient rehab in [place] however patient might not meet criteria. Son contested discharge. Discussed with the CM, plan to DC to SNF , arrangements pending as patient need HD as well. Also ordered Hep panel Problem Qualifiers (1) Diabetes: Qualified Codes: E11.9 - Type 2 diabetes mellitus without complications (2) Anemia: Qualified Codes: N18.6 - End stage renal disease; D63.1 - Anemia in chronic kidney disease; Z99.2 - Dependence on renal dialysis Genesis Muse MD Feb 10, 2018 15:07
[2018-02-10 16:00] VITALS: BP 157/69; PULSE 74; RESP 18; TEMP 98.4; O2SAT 98
[2018-02-10 18:03] VITALS: O2SAT 98
[2018-02-10 20:00] VITALS: BP 120/55; PULSE 84; RESP 18; TEMP 97.7; O2SAT 94
[2018-02-10] MEDS: SODIUM CHLORIDE 0.9% FLUSH 10 ML FLUSH IV FLUSH SCH (20:32)
[2018-02-11] VITALS: BP 138/64; PULSE 65; RESP 22; TEMP 97.9; O2SAT 93
[2018-02-11 04:00] VITALS: BP 108/55; PULSE 83; RESP 18; TEMP 97.8; O2SAT 97
[2018-02-11] MEDS: hydrALAZINE HCL 25 MG TAB PO SCH (06:00)
[2018-02-11] MEDS: HEPARIN SODIUM - SQ 10,000 UNITS/ML VIAL SQ SCH (06:23)
[2018-02-11 08:00] VITALS: BP 156/86; PULSE 73; RESP 18; TEMP 98.4; O2SAT 96
[2018-02-11] MEDS: PRAVASTATIN SOD 20 MG TAB PO SCH (08:15)
[2018-02-11] MEDS: LISINOPRIL 20 MG TAB PO SCH (08:15)
[2018-02-11] MEDS: amLODIPine BESYLATE 5 MG TAB PO SCH (08:15)
[2018-02-11] MEDS: BUMETANIDE 1 MG TAB PO SCH (08:15)
[2018-02-11] MEDS: DOCUSATE SODIUM 50 MG/SENNA 8.6 MG TAB PO SCH (08:15)
[2018-02-11] MEDS: ASPIRIN 325 MG TAB PO SCH (08:15)
[2018-02-11] MEDS: SODIUM CHLORIDE 0.9% FLUSH 10 ML FLUSH IV FLUSH SCH (08:16)
--- NOTE | 2018-02-11 08:59 | HHI.NPPN ---
Subjective General Problems: Hypertension Renal Failure: Chronic, End Stage Renal Disease Interval History He is sitting on a chair. Comfortable. Apparently dialysis is not yet arranged in [place]. Discussed with therapeutic case manager. Review of Systems General Constitutional: Fatigue General Remarks generalized weakness Objective Data Data Vital Signs Date Time Temp Pulse Resp B/P (MAP) Pulse Ox O2 Delivery O2 Flow Rate FiO2 02/11/18 04:00 97.8 83 18 108/55 (72) 97 02/11/18 00:00 97.9 65 22 138/64 (88) 93 02/10/18 20:00 97.7 84 18 120/55 (76) 94 02/10/18 18:03 98 Nasal Cannula 2.00 02/10/18 16:00 98.4 74 18 157/69 (98) 98 02/10/18 14:00 Nasal Cannula 2.00 Tubes & Lines: Perma-Cath Physical Exam General Appearance: Well Developed, Well Nourished, No Acute Distress, Comfortable Eyes Eye Exam: Sclera White Throat Throat Exam: Oral Mucosa Froh[place] & Moist Neck Neck Exam: Neck Supple Pulmonary Resp Exam: Clear Bilaterally, Breath Sounds Equal, Decreased Bases Cardiology CV Exam: Regular, Normal Sinus Rhythm Gastrointestinal/Abdomen GI Exam: Soft, Non-Tender, Bowel Sounds Present, Positive Bowel Movement Musculoskeletal MS Exam: Joints Intact, Normal Tone, Unable to Ambulate Integumentary Skin Exam: Clear, Warm, Dry, Intact Extremeties Extremities Exam: No Edema, Pedal Pulses Palpable Neurologic Neuro Exam: Alert, Awake, Oriented, Speech Clear, Moving All Extremities Psychiatric Psych Exam: Appropriate Responses Assessment/Plan Discussed Condition With: Patient Assessment Summary: Anemia of CKD, Hypertension, End Stage Renal Disease Problem List: (1) ESRD (end stage renal disease) ICD Codes: N18.6 - End stage renal disease Status: Chronic Plan: We will continue dialytic support MWF during this admission. Intermittently monitor labs Avoid IVF administration On high protein diet with supplements. He is not on phosphorus binders. 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 He is at risk for multiple complications including infection given his superintendent [employer] indwelling CVC. He is also at risk for cardiac complications including arrhythmia, [place] and CVA. (2) Weakness ICD Codes: R53.1 - Weakness Status: Chronic Plan: Recent discharge from [facility] Needs PT/OT, he is deconditioned and seems unmotivated Neurology has evaluated, no acute etiology but has chronic issues that may be contributing. The son contested discharge, wants inpatient PT/OT. Disposition will be to SNF in [place]. (3) Diabetes ICD Codes: E11.9 - Diabetes Status: Chronic Plan: Maintain glucose 140-180 mg/dL while hospitalized (4) Anemia ICD Codes: D64.9 - Anemia, unspecified Status: Acute Plan: On Venofer also on Epogen with dialysis (5) HTN (hypertension) ICD Codes: I10 - Hypertension Status: Chronic Plan: Blood pressure improved On amlodipine, hydralazine, and lisinopril. Plan Patient is cleared for discharge from renals standpoint as long as outpatient arrangements are complete. Problem Qualifiers (1) Diabetes: Qualified Codes: E11.9 - Type 2 diabetes mellitus without complications (2) Anemia: Qualified Codes: N18.6 - End stage renal disease; D63.1 - Anemia in chronic kidney disease; Z99.2 - Dependence on renal dialysis Sanju Cameron MD Feb 11, 2018 08:59
--- NOTE | 2018-02-11 11:24 | HHI.PR ---
Subjective Remarks Follow up ESRD, DM, Anemia and HTN. Patient sitting in chair, denies any complaints. No chest pain, sob or pain. He states he feels week when he brushes his teeth. Objective Vitals Vital Signs Date Time Temp Pulse Resp B/P (MAP) Pulse Ox O2 Delivery O2 Flow Rate FiO2 02/11/18 08:00 98.4 73 18 156/86 (109) 96 02/11/18 04:00 97.8 83 18 108/55 (72) 97 02/11/18 00:00 97.9 65 22 138/64 (88) 93 02/10/18 20:00 97.7 84 18 120/55 (76) 94 02/10/18 18:03 98 Nasal Cannula 2.00 02/10/18 16:00 98.4 74 18 157/69 (98) 98 02/10/18 14:00 Nasal Cannula 2.00 I/O 02/10/18 02/10/18 02/10/18 02/11/18 02/11/18 02/11/18 07:00 15:00 23:00 07:00 15:00 23:00 Intake Total 480 ml 720 ml 240 ml Output Total 200 ml 3000 ml Balance 280 ml -3000 ml 720 ml 240 ml Intake Oral 480 ml 720 ml 240 ml Output Urine Total 200 ml Hemodialysis 3000 ml # Voids 1 2 # Bowel Movements 1 0 2 Objective Remarks GENERAL: SKIN: Warm and dry. HEAD: Atraumatic. Normocephalic. EYES: Pupils equal and round. No scleral icterus. No injection or drainage. ENT: No nasal bleeding or discharge. Mucous membranes pink and moist. NECK: Trachea midline. No JVD. CARDIOVASCULAR: Regular rate and rhythm. +1 pedal edema. RESPIRATORY: No accessory muscle use. Clear to auscultation. Breath sounds equal bilaterally. GASTROINTESTINAL: Abdomen soft, non-tender, nondistended. Hepatic and splenic margins not palpable. MUSCULOSKELETAL: Extremities without clubbing, cyanosis, or edema. No obvious deformities. NEUROLOGICAL: Awake and alert. No obvious cranial nerve deficits. Motor grossly within normal limits. 3 out of 5 muscle strength in the arms and legs. Normal speech. PSYCHIATRIC: Appropriate mood and affect; insight and judgment normal. Procedures None Urinary Catheter: No Vascular Central Line Catheter: No A/P Problem List: (1) Weakness ICD Code: R53.1 - Weakness Status: Chronic (2) ESRD (end stage renal disease) ICD Code: N18.6 - End stage renal disease Status: Chronic (3) Diabetes ICD Code: E11.9 - Diabetes Status: Chronic (4) Anemia ICD Code: D64.9 - Anemia, unspecified Status: Acute Assessment and Plan 72 YOWM with ESRD on HD, neuropathy, poorly-controlled HTN, and CHF admitted on 01/29 after he was discharged home from SNF but his family felt that he was not ready to be at home as he was feeling weak, dizzy, and had generalized malaise. ESRD - Nephrology consulted - On HD MWF - Has AVF but not mature so using right chest Permacath - Avoid IV fluids and nephrotoxic agents - Renally dose medications -Labs in AM Anemia of chronic disease -On iron infusion -On Epogen HTN -Monitor closely -Cont hydralazine 25 mg Q8H, hold if SBP<100 -Resume Lisinopril -Clonidine PRN Weakness/debility -U/A negative and CXR with no consolidation, no signs of infection -Cont PT -Case management assisting with D/C needs -Accepted into [facility] but patient's son refusing to let him go there so looking for other options, Son is requesting rehab in [place]. nonproductive cough CXR reviewed with mild congestion patient needs HD. -Cont mucinex , and duonebs With redness in his left eye add eye drops , monitor. DVT prophylaxis: Heparin Discharge Planning Discharge to SNF in [place] when set up by case management Problem Qualifiers (1) Diabetes: Qualified Codes: E11.9 - Type 2 diabetes mellitus without complications (2) Anemia: Qualified Codes: N18.6 - End stage renal disease; D63.1 - Anemia in chronic kidney disease; Z99.2 - Dependence on renal dialysis Tierney Barrientos Feb 11, 2018 11:24
[2018-02-11 11:47] VITALS: BP 160/72; PULSE 74; RESP 18; TEMP 97.6; O2SAT 97
== END 2018-02-11 13:49 | DRG 291 ==
LOC: NEPE 20:27 → NEDA 01-29 01:32 → OBSVTOIN 01-29 01:55 → N06B 01-29 02:47
PROVIDERS: ADMIT Hospitalist; ATTEND Hospitalist
PROC: 5A1D70Z Performance of Urinary Filtration, Intermittent, Less than 6 Hours Per Day (ICD-10-PCS; principal; 2018-01-29)
DX: I13.2 Hypertensive heart and chronic kidney disease with heart failure and with stage 5 chronic kidney disease, or end stage renal disease (principal); N18.6 End stage renal disease; G93.40 Encephalopathy, unspecified; G61.0 Guillain-Barre syndrome; E11.42 Type 2 diabetes mellitus with diabetic polyneuropathy; E11.22 Type 2 diabetes mellitus with diabetic chronic kidney disease; I27.20 Pulmonary hypertension, unspecified; I50.9 Heart failure, unspecified; I11.0 Hypertensive heart disease with heart failure; G40.909 Epilepsy, unspecified, not intractable, without status epilepticus; F32.9 Major depressive disorder, single episode, unspecified; E78.5 Hyperlipidemia, unspecified; D63.1 Anemia in chronic kidney disease; M21.372 Foot drop, left foot; M21.371 Foot drop, right foot; M19.90 Unspecified osteoarthritis, unspecified site; G47.30 Sleep apnea, unspecified; Z79.82 Long term (current) use of aspirin; Z79.899 Other long term (current) drug therapy; Z88.1 Allergy status to other antibiotic agents; Z88.5 Allergy status to narcotic agent; Z88.0 Allergy status to penicillin; Z88.8 Allergy status to other drugs, medicaments and biological substances; Z99.2 Dependence on renal dialysis
CPT/HCPCS: 71045; 80048; 80053; 80069; 80074; 80076; 81001; 82085; 82550; 83540; 83550; 83690; 84100; 84484; 85025; 86038; 90935; 93005; 94150; 94640; 94664; 96374; 96375; 99285; J1580; J1644; J1756; J2405; Q4081